=== PATIENT | male | born 1955 | race Two or more races ===

== ENCOUNTER 2022-04-17 16:52 | Inpatient (IN) | payer OTHER ==
[~2022-04-17] VITALS: Ht 170.2 cm; Wt 67.1 kg
--- NOTE | 2022-04-17 16:55 | NUR ---
Received pt 66 yrs male came by rosalind from home for ALOC LAST TIME will know 3 day ago pt asleepy with pink eyes unable to open
--- NOTE | 2022-04-17 17:00 | NUR ---
SEEN BY DR. MORALES
--- NOTE | 2022-04-17 17:10 | NUR ---
INSERTED ANGO CATHETER G 20 ON RT AC BLOOD DROW ,BLOOD CULTUR X 2 AND LACTETE SENT TO LAB
[2022-04-17 17:40] LABS: BASOPHILS % (AUTO) 0.3 % (0.0-2.0); HEMATOCRIT 32 % (39-51); HEMOGLOBIN 10.1 g/dL (13.5-17.5); LYMPHOCYTES # (AUTO) 0.5 K/uL (0.8-4.8); MEAN CORPUSCULAR HGB CONC 32 g/dl (31.0-36.0); MEAN CORPUSCULAR VOLUME 102 fL (80-96); MONOCYTES # (AUTO) 0.7 K/uL (0.1-1.30); MONOCYTES % (AUTO) 6.9 % (2.0-12.0); NEUTROPHILS # (AUTO) 8.7 K/uL (1.8-8.9); NEUTROPHILS % (AUTO) 87.8 % (43.0-81.0); PLATELET COUNT (AUTO) 146 K/uL (150-450); RED BLOOD CELL COUNT(AUTO) 3.16 MIL/uL (4.5-6.0); WHITE BLOOD COUNT (AUTO) 9.9 K/uL (4.3-11.0)
--- NOTE | 2022-04-17 17:41 | NUR ---
TO CT SCAN OF HEAD
--- NOTE | 2022-04-17 17:50 | NUR ---
MOVE SHEET SUBMITTED.
[2022-04-17 17:59] LABS: CALCIUM, SERUM 9.6 mg/dL (8.5-10.1); CARBON DIOXIDE 18 mmol/L (21-32); CHLORIDE 93 mmol/L (98-107); GLUCOSE 127 mg/dL (74-106); SODIUM SERUM 136 mmol/L (136-145)
[2022-04-17 18:00] LABS: POTASSIUM 6.5 mmol/L (3.5-5.1); UREA NITROGEN, BLOOD 124 mg/dL (7-18)
--- NOTE | 2022-04-17 18:00 | NUR ---
DR. CARBALLO AWARE ABOUT BP 200/126 MMHG
[2022-04-17 18:01] LABS: CREATININE 14.8 mg/dL (0.6-1.3)
[2022-04-17 18:08] LABS: ALANINE AMINOTRANSFERASE 3214 U/L (12-78); ALBUMIN 4.1 g/dL (3.4-5.0); ALKALINE PHOSPHATASE 73 U/L (46-116); ASPARTATE AMINOTRANSFERASE 1252 U/L (15-37); BILIRUBIN,DIRECT 1.9 mg/dL (0.0-0.2); BILIRUBIN,TOTAL 4.8 mg/dL (0.2-1.0); TOTAL PROTEIN, SERUM 7.8 g/dL (6.4-8.2)
[2022-04-17] MEDS ORDERED: hydrALAZINE HCL IV 20 MG VIAL IV ONE (18:30)
[2022-04-17] MEDS ORDERED: INSULIN REGULAR, HUMAN 100 UNIT/ML 10 ML VIAL IV ONE (18:30)
[2022-04-17] MEDS ORDERED: SODIUM POLYSTYRENE SULFONATE 15 G/60 ML BOTTLE PO ONE (18:30)
[2022-04-17] MEDS ORDERED: DEXTROSE 50%-WATER 50 ML DISP.SYRIN IV ONE (18:30)
[2022-04-17] MEDS ORDERED: ALBUTEROL FS 2.5 MG/3 ML VIAL.NEB NEB ONE (18:30)
[2022-04-17] MEDS ORDERED: SODIUM BICARBONATE SYR 50 MEQ/50 ML DISP.SYRIN IV ONE (18:30)
[2022-04-17] MEDS ORDERED: SODIUM POLYSTYRENE SULFONATE 15 G/60 ML BOTTLE ONE (18:34)
[2022-04-17] MEDS ORDERED: hydrALAZINE HCL IV 20 MG VIAL ONE (18:34)
[2022-04-17] MEDS ORDERED: DEXTROSE 50%-WATER 50 ML DISP.SYRIN ONE (18:35)
[2022-04-17] MEDS ORDERED: INSULIN REGULAR, HUMAN 100 UNIT/ML 10 ML VIAL ONE (18:35)
[2022-04-17] MEDS ORDERED: SODIUM BICARBONATE SYR 50 MEQ/50 ML DISP.SYRIN ONE (18:35)
--- NOTE | 2022-04-17 18:38 | NUR ---
K. 6.8 TRETMENT GIVEN ORDER IN COPE PT ON HD A-V EUFMEIA ON LT UPPER ARM WITH GOOD BRITE
[2022-04-17] MEDS ORDERED: ALBUTEROL FS 2.5 MG/3 ML VIAL.NEB ONE (18:57)
[2022-04-17] MEDS ORDERED: IV NS 0.9% 500 ML BAG IV ONE (19:00)
[2022-04-17] MEDS ORDERED: AZITHROMYCIN 500 MG in IV D5W 250 ML IV ONE (19:00)
[2022-04-17] MEDS ORDERED: CEFTRIAXONE 1GM BAG (ER ONLY) 50 ML IV ONE ×2 (19:00→19:22)
[2022-04-17] MEDS ORDERED: AZITHROMYCIN 500 MG VIAL ONE (19:33)
--- NOTE | 2022-04-17 19:38 | NUR ---
HAND OFF POOL MEADE
[2022-04-17] MEDS ORDERED: HALOPERIDOL LACTATE INJ 5 MG/ML VIAL IM ONE (20:30)
[2022-04-17] MEDS ORDERED: LORAZEPAM INJ 2 MG/ML VIAL IVP ONE (20:30)
[2022-04-17] MEDS ORDERED: HALOPERIDOL LACTATE INJ 5 MG/ML VIAL ONE (20:32)
[2022-04-17] MEDS ORDERED: LORAZEPAM INJ 2 MG/ML VIAL ONE (20:40)
--- NOTE | 2022-04-17 22:01 | NUR ---
CLINICALS GIVEN TO FLORA OVER THE PHONE AT [phone]
[2022-04-17] MEDS ORDERED: ASPIRIN 325 MG TABLET PO ONE (22:30)
[2022-04-18] VITALS (41 sets, daily range): BP systolic 117–202; BP diastolic 24–138
--- NOTE | 2022-04-18 04:14 | NUR ---
ROOM [address] [place] [address] NURSE CONSTANZA REPORT [phone] Addendum: 04/18/22 at 0454 by [place] [employer] AGENT IS WORKING ON ALS TRANSPORTATION
[2022-04-18] MEDS ORDERED: ASPIRIN 325 MG TABLET ONE (04:15)
--- NOTE | 2022-04-18 04:19 | NUR ---
patient unable to follow instructions, failed swallow trials.
[2022-04-18 06:43] LABS: BASOPHILS % (AUTO) 0.2 % (0.0-2.0); CALCIUM, SERUM 9.3 mg/dL (8.5-10.1); HEMATOCRIT 29 % (39-51); HEMOGLOBIN 9.5 g/dL (13.5-17.5); LYMPHOCYTES # (AUTO) 0.6 K/uL (0.8-4.8); LYMPHOCYTES % (AUTO) 5.6 % (20.0-44.0); MEAN CORPUSCULAR HGB CONC 33 g/dl (31.0-36.0); MEAN CORPUSCULAR VOLUME 102 fL (80-96); MONOCYTES # (AUTO) 1.1 K/uL (0.1-1.30); MONOCYTES % (AUTO) 9.8 % (2.0-12.0); NEUTROPHILS # (AUTO) 9.7 K/uL (1.8-8.9); NEUTROPHILS % (AUTO) 84.4 % (43.0-81.0); PLATELET COUNT (AUTO) 139 K/uL (150-450); RED BLOOD CELL COUNT(AUTO) 2.89 MIL/uL (4.5-6.0); WHITE BLOOD COUNT (AUTO) 11.5 K/uL (4.3-11.0)
--- NOTE | 2022-04-18 06:50 | NUR ---
POTASSIUM 6.5 , MD AWARE
[2022-04-18 07:00] LABS: ALBUMIN 3.8 g/dL (3.4-5.0); BILIRUBIN,DIRECT 1.4 mg/dL (0.0-0.2); BILIRUBIN,TOTAL 3.3 mg/dL (0.2-1.0); POTASSIUM 6.5 mmol/L (3.5-5.1); TOTAL PROTEIN, SERUM 7.3 g/dL (6.4-8.2)
[2022-04-18] MEDS ORDERED: OLANZAPINE 10 MG VIAL IM ONE ×2 (07:00→07:03)
[2022-04-18 07:01] LABS: CREATININE 16.5 mg/dL (0.6-1.3)
[2022-04-18] MEDS ORDERED: SODIUM BICARBONATE SYR 50 MEQ/50 ML DISP.SYRIN ONE (07:26)
[2022-04-18] MEDS ORDERED: CALCIUM CHLORIDE 1,000 MG/10 ML DISP.SYRIN ONE (07:26)
[2022-04-18 07:27] LABS: ABG BASE EXCESS -12.3 mmol/L; ABG PCO2 23.3 mmHg (35.0-45.0); ABG PO2 83.1 mmHg (75.0-100.0); COHb 0.9 % (0.5-1.5); MetHb 0.2 % (0.0-1.5); SITE, ABG Right Radial; VENT MODE, BG ROOM AIR
[2022-04-18] MEDS ORDERED: DEXTROSE 50%-WATER 50 ML DISP.SYRIN ONE (07:27)
[2022-04-18] MEDS ORDERED: ALBUTEROL FS 2.5 MG/3 ML VIAL.NEB NEB ONE ×2 (07:30→08:00)
[2022-04-18] MEDS ORDERED: DEXTROSE 50%-WATER 50 ML DISP.SYRIN IV ONE ×2 (07:30→08:00)
[2022-04-18] MEDS ORDERED: SODIUM BICARBONATE SYR 50 MEQ/50 ML DISP.SYRIN IV ONE ×2 (07:30→08:00)
[2022-04-18] MEDS ORDERED: INSULIN REGULAR, HUMAN 100 UNIT/ML 10 ML VIAL IV ONE ×2 (07:30→08:00)
[2022-04-18] MEDS ORDERED: CALCIUM CHLORIDE 1,000 MG/10 ML DISP.SYRIN IV ONE ×2 (07:30→08:00)
[2022-04-18] MEDS ORDERED: PIPERACILLIN /TAZOBACTAM 3.375 G in IV D5W 50 ML IV ONE (07:30)
--- NOTE | 2022-04-18 07:44 | NUR ---
BLOOD GLUCOSE 154. REGULAR INSULIN 10U GIVEN IV RAC#20 PER PROTOCOL FOR HYPERKALEMIA.
--- NOTE | 2022-04-18 07:47 | NUR ---
MAY CM CALLED TO ASK FOR POTASSIUM LEVEL, WILL CALL [facility] SHORTLY AFTER TALKING TO THEIR DOCTOR TO DECIDE IF PATIENT WILL BE TRANSFERRED
--- NOTE | 2022-04-18 07:54 | NUR ---
PT TAKEN TO RADIOLOGY
[2022-04-18] MEDS ORDERED: SODIUM POLYSTYRENE SULFONATE 15 G/60 ML BOTTLE GT ONE (08:00)
[2022-04-18] MEDS ORDERED: *INSULIN REGULAR(HUMULIN R)HUM 100 UNIT/ML VIAL SQ PRN (08:00)
[2022-04-18] MEDS ORDERED: SODIUM POLYSTYRENE SULF. PWD 15 GM UDC PO ONE (08:00)
[2022-04-18] MEDS ORDERED: DEXTROSE 50%-WATER 50 ML DISP.SYRIN IV PRN (08:00)
[2022-04-18] MEDS ORDERED: INSULIN REGULAR, HUMAN 100 UNIT/ML 3 ML VIAL SQ PRN (08:00)
[2022-04-18] MEDS ORDERED: CLONIDINE HCL 0.1 MG TABLET PO PRN (08:00)
--- NOTE | 2022-04-18 08:05 | NUR ---
PT RETURNED FROM RADIOLOGY
[2022-04-18] MEDS ORDERED: ALBUTEROL FS 2.5 MG/3 ML VIAL.NEB ONE (08:15)
--- NOTE | 2022-04-18 08:40 | NUR ---
PT SEEN BY DR CHRISTENSEN
[2022-04-18] MEDS ORDERED: FOLI0.8T23 PO (08:41)
[2022-04-18] MEDS ORDERED: ATOR40TA PO (08:41)
[2022-04-18] MEDS ORDERED: GABA300C PO (08:41)
[2022-04-18] MEDS ORDERED: SEVE800T28 PO (08:41)
[2022-04-18] MEDS ORDERED: NIFE90TA38 PO (08:41)
[2022-04-18] MEDS ORDERED: TAMS-12 PO (08:41)
[2022-04-18] MEDS ORDERED: OMEP20CA15 PO (08:41)
[2022-04-18] MEDS ORDERED: APIX2.5T PO (08:41)
[2022-04-18] MEDS ORDERED: DULO30CA52 PO (08:41)
--- NOTE | 2022-04-18 08:47 | NUR ---
REPORT GIVEN TO WAQAS MEADE FOR ERICKA
[2022-04-18] MEDS ORDERED: LABETALOL HCL IV 100MG VIAL IV PRN (09:00)
[2022-04-18] MEDS: AMLODIPINE BESYLATE 5 MG TABLET PO SCH (09:00)
[2022-04-18] MEDS ORDERED: VANCOMYCIN 1 GM in IV D5W 250 ML IV ONE (09:30)
--- NOTE | 2022-04-18 09:30 | NUR ---
ICU/RN PT RECEIVED IN ROOM 255, ON 2L O2 NC, SOME LABORED BREATHING. SKIN INTACT. RIGHT AC 20G PIV IN PLACE, MIDLINE ORDERED. LEFT UA AV FISTULA IN PLACE, HD TO BE ORDERED STAT BY HD MD.
[2022-04-18 09:36] LABS: ABG BASE EXCESS -7.9 mmol/L; ABG OXYGEN SATURATION 96.7 % (92.0-98.5); ABG PCO2 32.8 mmHg (35.0-45.0); ABG PH 7.335 (7.350-7.450); ABG PO2 105.7 mmHg (75.0-100.0); AaDO2 55.2 mmHg; COHb 1.5 % (0.5-1.5); MetHb 0.1 % (0.0-1.5); O2Hb 95.2 % (94.0-97.0); SITE, ABG Right Radial; VENT MODE, BG 2L NC
[2022-04-18] MEDS: IV 1/2NS 1000 ML 1,000 ML IV PRN ×2 (09:42→22:55)
--- NOTE | 2022-04-18 10:00 | NUR ---
ICU/RN PT UNABLE TO TAKE ANY PO MEDS. ALL PO MEDS ORDERED HELD AT THIS TIME.
--- NOTE | 2022-04-18 10:30 | NUR ---
ICU/RN YARITZA ALFARO AT BEDSIDE. UPDATED ON PT'S CONDITION
--- NOTE | 2022-04-18 11:00 | NUR ---
ICU/RN CONSENT FOR HD GIVEN BY DAUGHTER ANGELINA MORENO. HD NURSE IN ROOM.
[2022-04-18] MEDS: BLOOD SUGAR DIAGNOSTIC 1 EACH STRIP VI SCH ×3 (12:23→21:15)
--- NOTE | 2022-04-18 13:38 | NUR ---
ICU/RN PT WITH ONGOING HD, IV ABX HELD UNTIL HD IS COMPLETED. BP ELEVATED, WILL GIVE BP MEDICATION AFTER HD IS BP REMAINS ELEVATED.
[2022-04-18] MEDS: IV NS 0.9% 250 ML IV PRN (13:52)
[2022-04-18] MEDS: LEVOFLOXACIN 250 MG /D5W 50 ML 250 MG in PREMIX 1 EA IV SCH (14:06)
--- NOTE | 2022-04-18 14:29 | NUR ---
ICU/RN HD COMPLETED, 2000ML REMOVED. BP CONTINUES TO BE ELEVATED, DR CHRISTENSEN CONTACTED. ORDERED RECEIVED FOR LABETOLOL 40MG IV Q4H PRN AND CLONIDINE PATCH 0.2MG QWK.
[2022-04-18] MEDS ORDERED: CLONIDINE HCL 0.2MG/24H PTWK 1 EA PATCH TD SCH (14:30)
[2022-04-18] MEDS: LABETALOL HCL IV 100MG VIAL IV PRN ×2 (14:44→18:51)
[2022-04-18] MEDS: PIPERACILLIN /TAZOBACTAM 2.25 G in IV D5W 50 ML IV SCH ×2 (15:16→21:15)
--- NOTE | 2022-04-18 17:54 | NUR ---
ICU/RN ACCU CHECK 144, PT NPO, CONFUSED, UNABLE TO TAKE ANY PO FOOD. INSULIN HELD.
[2022-04-18] MEDS: OLANZAPINE 10 MG VIAL IM PRN (18:32)
[2022-04-18] MEDS ORDERED: LACTULOSE UDC 200 G in SODIUM CHLORIDE IRRIG SOLUTION 400 ML IR ONE (21:00)
[2022-04-18] MEDS: LORAZEPAM INJ 2 MG/ML VIAL IV PRN (21:04)
[2022-04-19] VITALS (36 sets, daily range): BP systolic 133–174; BP diastolic 71–113
[2022-04-19] MEDS: OLANZAPINE 10 MG VIAL IM PRN ×2 (02:30→22:06)
[2022-04-19] MEDS: LORAZEPAM INJ 2 MG/ML VIAL IV PRN ×3 (03:46→20:32)
[2022-04-19] MEDS: PIPERACILLIN /TAZOBACTAM 2.25 G in IV D5W 50 ML IV SCH ×3 (04:45→20:15)
[2022-04-19 04:48] LABS: BASOPHILS % (AUTO) 0.3 % (0.0-2.0); EOSINOPHILS % (AUTO) 0.2 % (0.0-6.0); HEMATOCRIT 28 % (39-51); HEMOGLOBIN 9.1 g/dL (13.5-17.5); LYMPHOCYTES # (AUTO) 0.6 K/uL (0.8-4.8); LYMPHOCYTES % (AUTO) 5.6 % (20.0-44.0); MEAN CORPUSCULAR HGB CONC 33 g/dl (31.0-36.0); MEAN CORPUSCULAR VOLUME 102 fL (80-96); MONOCYTES # (AUTO) 0.9 K/uL (0.1-1.30); MONOCYTES % (AUTO) 8.8 % (2.0-12.0); NEUTROPHILS # (AUTO) 8.4 K/uL (1.8-8.9); NEUTROPHILS % (AUTO) 85.1 % (43.0-81.0); PLATELET COUNT (AUTO) 134 K/uL (150-450); RED BLOOD CELL COUNT(AUTO) 2.75 MIL/uL (4.5-6.0); WHITE BLOOD COUNT (AUTO) 9.9 K/uL (4.3-11.0)
[2022-04-19 04:54] LABS: CALCIUM, SERUM 8.6 mg/dL (8.5-10.1); POTASSIUM 5.1 mmol/L (3.5-5.1)
[2022-04-19 05:02] LABS: SERUM AMMONIA 42 umol/L (11-32)
[2022-04-19 05:09] LABS: BILIRUBIN,TOTAL 2.6 mg/dL (0.2-1.0); TOTAL PROTEIN, SERUM 6.1 g/dL (6.4-8.2)
[2022-04-19 05:10] LABS: CREATININE 11.1 mg/dL (0.6-1.3)
[2022-04-19 05:49] LABS: THYROID STIMULATING HORMONE 1.817 uIU/mL (0.358-3.74)
[2022-04-19] MEDS ORDERED: VANCOMYCIN 500 MG in IV D5W 100 ML IV PRN (06:00)
--- NOTE | 2022-04-19 07:30 | NUR ---
ICU/RN PT IS AGITATED ,ON THE BED ,ENCEPHALOPATHY,REACTIVE ON PAIN STIMULATION.NOT FOLLOWS COMMAND..ON 2L N/C ,SAT O2-98%.PT HAS PRODUCTIVE COUGH.BILATERAL SOFT WRIST RESTRAINS ON. RIGHT UPPER ARM MID LINE.LEFT ARM HD FISTULA.PT IS ON HD. HD NURSE AT BEDSIDE. LABS REVIEW. NOTIFIED. BS-120.CONTINUE MONITORING.
[2022-04-19] MEDS: BLOOD SUGAR DIAGNOSTIC 1 EACH STRIP VI SCH ×4 (07:45→22:23)
[2022-04-19] MEDS: AMLODIPINE BESYLATE 5 MG TABLET PO SCH (08:16)
[2022-04-19] MEDS ORDERED: LACTULOSE UDC 200 G in SODIUM CHLORIDE IRRIG SOLUTION 400 ML IR ONE (09:00)
[2022-04-19] MEDS ORDERED: CLONIDINE HCL 0.3 MG/24H PTWK 1 EA PATCH TD SCH (09:00)
--- NOTE | 2022-04-19 09:00 | NUR ---
ICU/RN PT IS VERY AGITATED. ATIVAN 1 MG IV GIVEN ORDERED. PT IS STILL HAVING HD.
--- NOTE | 2022-04-19 11:05 | NUR ---
ICU/RN HD IS OVER .1.5 L OUTPUT.REPOSITION FOR COMFORT.CONTINUE MONITORING.
[2022-04-19] MEDS: IV 1/2NS 1000 ML 1,000 ML IV PRN ×2 (11:42→22:43)
[2022-04-19] MEDS: LEVOFLOXACIN 250 MG /D5W 50 ML 250 MG in PREMIX 1 EA IV SCH (11:43)
[2022-04-19] MEDS: IV NS 0.9% 250 ML IV PRN (11:43)
[2022-04-19] MEDS ORDERED: VANCOMYCIN 1 GM in IV D5W 250ml IV ONE (18:00)
--- NOTE | 2022-04-19 18:35 | NUR ---
ICU/RN PT IS SLEEPING AT THIS TIME.DUE MEDS ARE GIVEN ORDERED. BS-123. CONTINUE MONITORING.
--- NOTE | 2022-04-19 19:23 | NUR ---
ICU/RN OPENING NOTES: RECEIVED PT IN BED, SLEEPING AT THIS MOMENT. RESPONSIVE TO PAINFUL STIMULI. ON 2L/MIN VIA N/C AND PT TOLERATED WELL. O2 SAT 97%. IV ACCESS ON DOMINICK MID LINE AND RAC#20G INTACT AND PATENT. NO S/S OF INFILTRATIONS. RUNNING 1/2 NS AT 100CC/HR. LEFT ARM HD FISTULA INTACT AND COVERED WITH DRY DRESSING. NO FACIAL GRIMACING NOTED. NO ACUTE DISTRESS.BILATERAL SOFT WRIST RESTRAINTS WITH MITTENS ON. ALL SAFETY MEASURES IN PLACE. SIDE RAILS UP X3, BED IN LOWEST POSITION AND LOCKED. PLACE CALL LIGHT WITH IN REACH. WILL CONTINUE TO MONITOR.
--- NOTE | 2022-04-19 20:35 | NUR ---
RN NOTES: NOTED PT WITH SEVERE AGITATION. ATIVAN 0.5 ML GIVEN. WILL CONTINUE TO MONITOR
--- NOTE | 2022-04-19 21:32 | NUR ---
RN NOTES: DAUGHTER IRVIN MORENO CALLED. ALL UPDATES GIVEN TO THE DAUGHTER.
--- NOTE | 2022-04-19 22:25 | NUR ---
RN NOTES: STILL NOTED PT WITH VERY AGITATED, RESTLESSNESS. ZYPREXA IM GIVEN. PT TOLERATED WELL. PT'S BLOOD SUGAR 85. NO COVERAGE NEEDED. NO S/S OF HYPER/HYPOGLYCEMIA. WILL CONTINUE TO MONITOR
[2022-04-20] VITALS (28 sets, daily range): BP systolic 131–181; BP diastolic 34–114
[2022-04-20] MEDS: LORAZEPAM INJ 2 MG/ML VIAL IV PRN ×3 (03:36→21:21)
--- NOTE | 2022-04-20 03:37 | NUR ---
RN NOTES: PT STILL NOTED WITH SEVERE AGITATION WITH RESTLESSNESS, KEPT TRYING TO GETTING UP FROM THE BED, BILATERAL SOFT RESTRAINTS ON WITH MITTENS, ATIVAN GIVEN PRN ORDERED. PT TOLERATED WELL. WILL CONTINUE TO MONITOR
[2022-04-20] MEDS: PIPERACILLIN /TAZOBACTAM 2.25 G in IV D5W 50 ML IV SCH ×3 (04:51→23:44)
[2022-04-20] MEDS: LABETALOL HCL IV 100MG VIAL IV PRN (06:10)
[2022-04-20 06:25] LABS: SERUM AMMONIA 37 umol/L (11-32)
--- NOTE | 2022-04-20 06:26 | NUR ---
ICU/RN CLOSING NOTES: PT IN BED, AWAKE, ALERT/ORIENTED X1 WITH VERY CONFUSED. ON 2L/MIN VIA N/C AND PT TOLERATED WELL. O2 SAT 98%. IV ACCESS ON DOMINICK MID LINE AND RAC#20G INTACT AND PATENT. NO S/S OF INFILTRATIONS. RUNNING 1/2 NS AT 100CC/HR. LEFT ARM HD FISTULA INTACT AND COVERED WITH DRY DRESSING. NO FACIAL GRIMACING NOTED. NO ACUTE DISTRESS. PT KEPT MOVING ON THE BED ALL NIGHT. KEPT TRYING TO REMOVED THE RESTRAINTS. STILL ON BILATERAL SOFT WRIST RESTRAINTS WITH MITTENS. RELEASED Q 2 HOURS TO CHECK CIRCULATION. LABETALOL GIVEN FOR B/P-173/99, PULSE-108. ALL DUE MEDS GIVEN ORDERED. ALL SAFETY MEASURES IN PLACE. SIDE RAILS UP X3, BED IN LOWEST POSITION AND LOCKED. PLACE CALL LIGHT WITH IN REACH. WILL ENDORSE TO MORNING SHIFT NURSE.
[2022-04-20 06:29] LABS: BASOPHILS % (AUTO) 0.2 % (0.0-2.0); EOSINOPHILS % (AUTO) 0.2 % (0.0-6.0); HEMATOCRIT 30 % (39-51); HEMOGLOBIN 9.5 g/dL (13.5-17.5); LYMPHOCYTES # (AUTO) 0.4 K/uL (0.8-4.8); MEAN CORPUSCULAR HGB CONC 32 g/dl (31.0-36.0); MEAN CORPUSCULAR VOLUME 103 fL (80-96); MONOCYTES # (AUTO) 1.2 K/uL (0.1-1.30); MONOCYTES % (AUTO) 8.9 % (2.0-12.0); NEUTROPHILS # (AUTO) 11.3 K/uL (1.8-8.9); NEUTROPHILS % (AUTO) 87.7 % (43.0-81.0); PLATELET COUNT (AUTO) 127 K/uL (150-450); RED BLOOD CELL COUNT(AUTO) 2.87 MIL/uL (4.5-6.0); WHITE BLOOD COUNT (AUTO) 12.9 K/uL (4.3-11.0)
[2022-04-20 06:36] LABS: ALANINE AMINOTRANSFERASE 1340 U/L (12-78); ALKALINE PHOSPHATASE 53 U/L (46-116); ASPARTATE AMINOTRANSFERASE 195 U/L (15-37); BILIRUBIN,TOTAL 2.2 mg/dL (0.2-1.0); CALCIUM, SERUM 8.2 mg/dL (8.5-10.1); CARBON DIOXIDE 22 mmol/L (21-32); CHLORIDE 99 mmol/L (98-107); GLUCOSE 75 mg/dL (74-106); POTASSIUM 5.1 mmol/L (3.5-5.1); SODIUM SERUM 142 mmol/L (136-145); UREA NITROGEN, BLOOD 78 mg/dL (7-18)
--- NOTE | 2022-04-20 06:40 | NUR ---
RN NOTES: PT'S LACTIC ACID-2.8. ENDORSE TO MORNING SHIFT NURSE.
--- NOTE | 2022-04-20 07:30 | NUR ---
OPENING NOTE: REPORT RECEIVED FROM OTONIEL MEADE. ORDERS AND LABS REVIEWED DURING REPORT. PER REPORT PT CONTINUES TO BE CONFUSED AND COMBATIVE, MEDS ARE NOT CALMING PATIENT. PT IS IN RESTRAINTS AND GETTING DAILY HD. PT CHECKED ON HOURLY AND PRN BY NURSING STAFF.
[2022-04-20 08:31] LABS: BILIRUBIN,DIRECT 0.9 mg/dL (0.0-0.2)
[2022-04-20] MEDS ORDERED: LACTULOSE UDC 200 G in SODIUM CHLORIDE IRRIG SOLUTION 400 ML IR ONE (09:00)
[2022-04-20] MEDS ORDERED: DEXTROSE 50%-WATER 50 ML DISP.SYRIN IV PRN (09:00)
[2022-04-20] MEDS: AMLODIPINE BESYLATE 5 MG TABLET PO SCH (09:00)
[2022-04-20] MEDS: OLANZAPINE 10 MG VIAL IM PRN ×2 (09:11→16:42)
[2022-04-20] MEDS: IV D5/0.45 NACL 1,000 ML IV PRN ×2 (09:23→23:54)
[2022-04-20] MEDS: NITROGLYCERIN 30 GM TUBE TP SCH ×2 (09:44→23:44)
[2022-04-20] MEDS: BLOOD SUGAR DIAGNOSTIC 1 EACH STRIP IN SCH ×2 (12:01→18:40)
[2022-04-20] MEDS: LEVOFLOXACIN 250 MG /D5W 50 ML 250 MG in PREMIX 1 EA IV SCH (12:01)
[2022-04-20 13:12] LABS: BAND % (MANUAL) 2 % (0.0-5.0); LYMPHOCYTES % (MANUAL) 2 % (16-48); MONOCYTES % (MANUAL) 7 % (0-11.0); NEUTROPHILS % (MANUAL) 89 (42-76)
--- NOTE | 2022-04-20 19:04 | NUR ---
END OF SHIFT NOTE: PT WAS AGITATED ALL DAY. ATIVAN AND ZYPREXA DID NOT CALM PATIENT DOWN. HD STILL PENDING FOR TODAY, TO BE DONE THIS EVENING SOMETIME PER BONDING AGENT. RECTAL TUBE INSERTED TO IRRIGATE WITH LACTULOSE TODAY, LEFT IN FOR LIQUID BMS. PT WATCHED CLOSELY TODAY.
[2022-04-20] MEDS: HEPARIN SODIUM, PORCINE 5000 UNITS/1 ML VIAL SQ SCH (23:45)
[2022-04-21] VITALS (29 sets, daily range): BP systolic 73–191; BP diastolic 18–119
[2022-04-21] MEDS: BLOOD SUGAR DIAGNOSTIC 1 EACH STRIP IN SCH ×5 (00:30→23:52)
[2022-04-21] MEDS: LABETALOL HCL IV 100MG VIAL IV PRN ×2 (01:54→05:55)
[2022-04-21 04:41] LABS: ALBUMIN 2.9 g/dL (3.4-5.0); BILIRUBIN,DIRECT 0.7 mg/dL (0.0-0.2); BILIRUBIN,TOTAL 1.7 mg/dL (0.2-1.0); TOTAL PROTEIN, SERUM 5.9 g/dL (6.4-8.2)
[2022-04-21] MEDS: LORAZEPAM INJ 2 MG/ML VIAL IV PRN (04:57)
[2022-04-21 05:02] LABS: CALCIUM, SERUM 8.4 mg/dL (8.5-10.1); POTASSIUM 4.3 mmol/L (3.5-5.1)
[2022-04-21 05:09] LABS: CREATININE 7.5 mg/dL (0.6-1.3)
[2022-04-21] MEDS: PIPERACILLIN /TAZOBACTAM 2.25 G in IV D5W 50 ML IV SCH ×3 (05:55→21:06)
--- NOTE | 2022-04-21 07:10 | NUR ---
COOK SOUP Bedside report taken from [facility] nurse Jose MEADE. pt altered, eyes closed, pt does not follow commands, pt extremely aggitated and restless, moves bue and ble 5/5, bue restraints and mittens in place. pt on 2 L n/c, tolerating well spo2 100%. pt NSR on the monitor, bue and ble pulses present and palpable. pt npo, bowel sounds present, abdomen soft to touch. pt anuric and on HD. all lines traced. vitals stable. safety measures in place. will continue to monitor.
[2022-04-21] MEDS: NITROGLYCERIN 30 GM TUBE TP SCH ×2 (08:01→21:08)
[2022-04-21] MEDS: HEPARIN SODIUM, PORCINE 5000 UNITS/1 ML VIAL SQ SCH (08:02)
[2022-04-21] MEDS: AMLODIPINE BESYLATE 5 MG TABLET PO SCH (08:07)
--- NOTE | 2022-04-21 09:19 | NUR ---
LONE LEAD LINEMAN Attempted to place ngt, unsuccessfu attempts by felice RN, jaret RN and antwon RN, once ngt inserted, tube coils in back of pt throat, pt has small amount of bleeding from rita nostrils non sustained and nonthreatening, pt on heparin sub q. charge nurse Janette MEADE aware. will notify .
[2022-04-21] MEDS ORDERED: CLONIDINE HCL 0.1 MG TABLET NG PRN (09:30)
[2022-04-21] MEDS: OLANZAPINE 10 MG VIAL IM PRN (09:58)
--- NOTE | 2022-04-21 10:01 | NUR ---
ASSISTANT ART DIRECTOR Pt extremely restless and aggitated, prn zyprexa given IM. will attempt to clean mouth and attempt to insert NGT.
--- NOTE | 2022-04-21 10:09 | NUR ---
BOTTLE SELECTOR Oral care done. NGT placed in right nostril by charge nurse Janette RN, positive placement verified by RN x2.
[2022-04-21] MEDS: PANTOPRAZOLE 40 MG VIAL IV SCH (10:14)
[2022-04-21] MEDS: LACTULOSE 10 G/15 ML UDC (PYXIS) NG SCH ×3 (10:14→21:07)
--- NOTE | 2022-04-21 10:15 | NUR ---
MANAGER STRATEGIC SOURCING SCD placed on pt ble
[2022-04-21] MEDS: NIFEdipine (10MG) 10 MG CAPSULE PO SCH ×3 (10:16→21:08)
--- NOTE | 2022-04-21 10:31 | NUR ---
SENIOR TECHNICAL SUPPORT ENGINEER Dr Snowden messaged and made aware that ngt in place, positive placement verified. prn zyprexa given IM, pt still aggitated. md made aware prn ativan given on noc shift doesnt help with pt aggitation and restlessness, order for head CT noted, pt will not stay still for study, new prn medication requested for aggitation from md. md also made aware that pt daughter Desire [phone] would like updates and has questions regarding father condition and plan of care contact information given to md. awaiting response. charge nurse Janette MEADE aware.
[2022-04-21] MEDS: LEVOFLOXACIN 250 MG /D5W 50 ML 250 MG in PREMIX 1 EA IV SCH (11:15)
[2022-04-21] MEDS: INSULIN REGULAR, HUMAN 100 UNIT/ML 3 ML VIAL SQ PRN ×2 (11:27→23:54)
--- NOTE | 2022-04-21 11:32 | NUR ---
WELD ENGINEER Ativan order changed increased to 2 mg iv q4hr per dr Snowden order, verified and entered with charge nurse Janette MEADE.
[2022-04-21] MEDS ORDERED: LORAZEPAM INJ 2 MG/ML VIAL IV PRN (12:00)
--- NOTE | 2022-04-21 12:10 | NUR ---
CHIEF COMPRESSOR STATION ENGINEER mri technologist at bedside assessing pt condition and behavior for CT scan pending, at this time pt too restless and aggitated and will not stay still for study. ativan to be given to see if pt will be lest restless and able to successfully complete head CT.
--- NOTE | 2022-04-21 12:17 | NUR ---
MANAGER MAIL pt extremely restless and aggitated, prn ativan given to calm pt and evaluate to transport to CT for CT head. vitals stable. will continue to monitor. pt dose and vitals reviewed with charge nurse Janette MEADE
[2022-04-21] MEDS: IV D5/0.45 NACL 1,000 ML IV PRN (15:19)
--- NOTE | 2022-04-21 15:45 | NUR ---
COOLER ROOM WORKER tube feeding started per md order. positive placement verified. will continue to monitor.
[2022-04-21] MEDS: APIXABAN 2.5 MG TABLET PO SCH (16:02)
[2022-04-21] MEDS: DULOXETINE HCL 30 MG CAPSULE.DR PO SCH (16:02)
--- NOTE | 2022-04-21 16:16 | NUR ---
MILL REPRESENTATIVE HD nurse at bedside setting up to start HD. pt restless. vitals stable. safety measures in place. will continue to monitor.
--- NOTE | 2022-04-21 19:03 | NUR ---
PBX INSTALLER Bedside report given to [facility] nurse Betty MEADE. pt currently on HD, asleep, easily arousable , extremely restless and aggitated when awake. pt on 2 L n/c tolerating well. all lines traced. all drips verified. safety meaures in place. pt clean and dry. no signs of acute distress at this time. head CT endorsed to [facility] nurse.
--- NOTE | 2022-04-21 19:30 | NUR ---
RN NOTE HD DONE; 2L OUTPUT. PT TOLERATED WELL. WILL CONT TO MONITOR.
--- NOTE | 2022-04-21 19:36 | NUR ---
ICU/RN OPENING NOTES: RECEIVED PT IN BED, AWAKE WITH PERIODS OF AGITATION, ON 2L/MIN VIA N/C AND PT TOLERATED WELL. O2 SAT 97%. IV ACCESS ON RFA #18G INTACT AND PATENT. NO S/S OF INFILTRATIONS. RUNNING D5 1/2 NS AT 75 CC/HR. WITH HD FISTULA INTACT AND COVERED WITH DRY DRESSING, ONGOING DIALYSIS AT BEDSIDE. NO ACUTE DISTRESS NOTED. WITH BILATERAL SOFT WRIST RESTRAINTS ON. ALL SAFETY MEASURES IN PLACE. SIDE RAILS UP X3, BED IN LOWEST POSITION AND LOCKED. PLACE CALL LIGHT WITH IN REACH. WILL CONTINUE TO MONITOR.
--- NOTE | 2022-04-21 20:35 | NUR ---
RN NOTES DAUGHTER IRVIN MORENO CALLED. ALL UPDATES GIVEN IN REGARDS TO PATIENT CONDITION.
[2022-04-21] MEDS ORDERED: GABAPENTIN 300 MG CAPSULE PO SCH (22:00)
[2022-04-22] VITALS (41 sets, daily range): BP systolic 89–158; BP diastolic 42–84
--- NOTE | 2022-04-22 | NUR ---
RN NOTE BS CHECKED AT 173 MD/DL, 4 UNITS OF INSULIN GIVEN PER SLIDING SCALE. WILL CONT TO MONITOR.
[2022-04-22] MEDS: LACTULOSE 10 G/15 ML UDC (PYXIS) NG SCH ×4 (02:35→21:12)
[2022-04-22 03:55] LABS: BASOPHILS # (AUTO) 0.1 K/uL (0.0-0.2); BASOPHILS % (AUTO) 0.5 % (0.0-2.0); EOSINOPHILS % (AUTO) 4.9 % (0.0-6.0); HEMATOCRIT 27 % (39-51); HEMOGLOBIN 8.5 g/dL (13.5-17.5); LYMPHOCYTES # (AUTO) 0.8 K/uL (0.8-4.8); MEAN CORPUSCULAR HGB CONC 32 g/dl (31.0-36.0); MEAN CORPUSCULAR VOLUME 103 fL (80-96); MONOCYTES % (AUTO) 9.7 % (2.0-12.0); NEUTROPHILS # (AUTO) 8.1 K/uL (1.8-8.9); NEUTROPHILS % (AUTO) 76.9 % (43.0-81.0); PLATELET COUNT (AUTO) 87 K/uL (150-450); RED BLOOD CELL COUNT(AUTO) 2.57 MIL/uL (4.5-6.0); WHITE BLOOD COUNT (AUTO) 10.5 K/uL (4.3-11.0)
[2022-04-22 04:11] LABS: ALBUMIN 2.5 g/dL (3.4-5.0); BILIRUBIN,TOTAL 1.2 mg/dL (0.2-1.0); CALCIUM, SERUM 7.7 mg/dL (8.5-10.1); CREATININE 6.4 mg/dL (0.6-1.3); POTASSIUM 3.3 mmol/L (3.5-5.1); TOTAL PROTEIN, SERUM 5.4 g/dL (6.4-8.2)
[2022-04-22 04:35] LABS: BAND % (MANUAL) 2 % (0.0-5.0); BASOPHILS % (MANUAL) 0 % (0.0-2.0); EOSINOPHILS % (MANUAL) 2 % (0-4); LYMPHOCYTES % (MANUAL) 7 % (16-48); MONOCYTES % (MANUAL) 9 % (0-11.0); NEUTROPHILS % (MANUAL) 80 (42-76)
[2022-04-22] MEDS: PIPERACILLIN /TAZOBACTAM 2.25 G in IV D5W 50 ML IV SCH (05:00)
[2022-04-22] MEDS: BLOOD SUGAR DIAGNOSTIC 1 EACH STRIP IN SCH ×4 (05:02→23:10)
[2022-04-22] MEDS: NIFEdipine (10MG) 10 MG CAPSULE PO SCH ×3 (05:02→20:54)
[2022-04-22] MEDS: IV D5/0.45 NACL 1,000 ML IV PRN (05:35)
[2022-04-22] MEDS: INSULIN REGULAR, HUMAN 100 UNIT/ML 3 ML VIAL SQ PRN ×2 (05:37→12:09)
--- NOTE | 2022-04-22 06:00 | NUR ---
RN NOTE BS CHECKED AT 149 MD/DL, 2 UNITS OF INSULIN GIVEN PER SLIDING SCALE. WILL CONT TO MONITOR.
--- NOTE | 2022-04-22 07:00 | NUR ---
RN NOTES RECEIVED PT ON BED, LETHARGIC , RESPONDS TO VERBAL STIMULI , ON 2L O2 N/C , O2 SAT WNL, ON TELE SB HR IN 50'S , TF AT 20CC/HR RUNNING VIA NGT, NO RESIDUAL NOTED, IV F AT 75CC/HR RUNNING , IV SITE CDI, SR UP x3, CALL LIGHT WITHIN EASY REACH , BED LOCKED AND IN LOWEST POSITION, CONTINUE TO MONITOR .
--- NOTE | 2022-04-22 07:08 | NUR ---
ICU/RN CLOSING NOTES: PT IN BED, OBTUNDED, ON 2L/MIN VIA N/C AND PT TOLERATED WELL. O2 SAT 97%. IV ACCESS ON RFA #18G INTACT AND PATENT. NO S/S OF INFILTRATIONS. RUNNING D5 1/2 NS AT 75 CC/HR. WITH HD FISTULA AT LEFT UA INTACT AND COVERED WITH DRY DRESSING, NO ACUTE DISTRESS NOTED. WITH BILATERAL SOFT WRIST RESTRAINTS WITH MITTENS ON. ALL SAFETY MEASURES IN PLACE. ALL DUE MEDS GIVEN, SIDE RAILS UP X3, BED IN LOWEST POSITION AND LOCKED. PLACE CALL LIGHT WITH IN REACH. WILL ENDORSE TO AM SHIFT SANJAY MEADE FOR CONTINUITY OF CARE.
[2022-04-22 08:13] LABS: ABG BASE EXCESS -1.8 mmol/L; ABG OXYGEN SATURATION 95.7 % (92.0-98.5); ABG PCO2 38.8 mmHg (35.0-45.0); ABG PH 7.389 (7.350-7.450); AaDO2 97.8 mmHg; MetHb 0.1 % (0.0-1.5); O2Hb 94.6 % (94.0-97.0); SITE, ABG Right Brachial; VENT MODE, BG 3L NC
[2022-04-22] MEDS: DULOXETINE HCL 30 MG CAPSULE.DR PO SCH ×2 (08:18→16:42)
[2022-04-22] MEDS: TAMSULOSIN 0.4 MG CAP.SR.24H PO SCH (08:18)
[2022-04-22] MEDS: APIXABAN 2.5 MG TABLET PO SCH (08:20)
[2022-04-22] MEDS: NITROGLYCERIN 30 GM TUBE TP SCH ×2 (08:24→20:55)
[2022-04-22] MEDS: PANTOPRAZOLE 40 MG VIAL IV SCH (08:35)
[2022-04-22] MEDS: METRONIDAZOLE 500MG/ NS 100ML 500 MG in PREMIX 1 EA IV SCH ×3 (09:19→20:54)
[2022-04-22] MEDS: LEVOFLOXACIN 250 MG /D5W 50 ML 250 MG in PREMIX 1 EA IV SCH (12:11)
[2022-04-22] MEDS: NEPRO 1,000 ML BOTTLE NG PRN ×2 (16:32→18:03)
--- NOTE | 2022-04-22 18:20 | NUR ---
RN NOTES PT FREDERIC , WAKES UP TO VERBAL STIMULI, RECEIVED HD ON THIS SHIFT, TOLERATING WELL , ON 2L O2 N/C , O2 SAT WNL, , IVF AT 40 CC/HR RUNNING , IV SITE CDI, NO SIGNFICANT CHANGES NOTED ON THIS SHIFT , WILL ENDORSE TO PLANNING ASSISTANT NURSE FOR CONTINUITY OF CARE .
--- NOTE | 2022-04-22 19:56 | NUR ---
field horticultural specialty grower. initial assessment. received the pt rest in bed. awake, alert, very agitated. hob elevated. ngt feeding started, now stopped for prevent aspiration. pt will calm resume the feeding, iv RT hand 20g. LT hand HD cath. rita soft wrist restraint checked and released. no INJURY or redness noted. will continue to monitor vitals.
[2022-04-22] MEDS: OLANZAPINE 10 MG VIAL IM PRN (22:28)
--- NOTE | 2022-04-22 22:49 | NUR ---
agricultural extension specialist. pt is agitation zyprexa 5mg IM given per ordered
[2022-04-23] VITALS (33 sets, daily range): BP systolic 98–165; BP diastolic 55–102
[2022-04-23] MEDS: LACTULOSE 10 G/15 ML UDC (PYXIS) NG SCH (03:56)
[2022-04-23 03:59] LABS: BASOPHILS # (AUTO) 0.1 K/uL (0.0-0.2); BASOPHILS % (AUTO) 0.5 % (0.0-2.0); HEMATOCRIT 29 % (39-51); HEMOGLOBIN 9.3 g/dL (13.5-17.5); LYMPHOCYTES # (AUTO) 0.7 K/uL (0.8-4.8); LYMPHOCYTES % (AUTO) 5.4 % (20.0-44.0); MEAN CORPUSCULAR HGB CONC 32 g/dl (31.0-36.0); MEAN CORPUSCULAR VOLUME 103 fL (80-96); MONOCYTES # (AUTO) 0.8 K/uL (0.1-1.30); MONOCYTES % (AUTO) 6.5 % (2.0-12.0); NEUTROPHILS # (AUTO) 10.7 K/uL (1.8-8.9); NEUTROPHILS % (AUTO) 84.6 % (43.0-81.0); PLATELET COUNT (AUTO) 72 K/uL (150-450); RED BLOOD CELL COUNT(AUTO) 2.77 MIL/uL (4.5-6.0); WHITE BLOOD COUNT (AUTO) 12.6 K/uL (4.3-11.0)
[2022-04-23 04:07] LABS: CALCIUM, SERUM 7.8 mg/dL (8.5-10.1); CREATININE 5.9 mg/dL (0.6-1.3); POTASSIUM 3.6 mmol/L (3.5-5.1)
[2022-04-23 04:42] LABS: BAND % (MANUAL) 5 % (0.0-5.0); BASOPHILS % (MANUAL) 0 % (0.0-2.0); EOSINOPHILS % (MANUAL) 1 % (0-4); LYMPHOCYTES % (MANUAL) 9 % (16-48); MONOCYTES % (MANUAL) 6 % (0-11.0); NEUTROPHILS % (MANUAL) 79 (42-76)
[2022-04-23] MEDS: NIFEdipine (10MG) 10 MG CAPSULE PO SCH (05:57)
[2022-04-23] MEDS: METRONIDAZOLE 500MG/ NS 100ML 500 MG in PREMIX 1 EA IV SCH ×3 (05:57→21:03)
[2022-04-23] MEDS: BLOOD SUGAR DIAGNOSTIC 1 EACH STRIP IN SCH ×4 (06:14→23:53)
[2022-04-23] MEDS: IV D5/0.45 NACL 1,000 ML IV PRN (06:24)
--- NOTE | 2022-04-23 07:10 | NUR ---
manager agriculture. am care given. remaining same oxygen tolerated well. sat 99%. no acute distress noted, telemetry monitor showing nsr. iv rt hand 20g. ivf d5 1/2ns running, flexi seal intact. ngt feeding tolerated well. rita soft wrist restraint checked and released, no injury or redness noted.
--- NOTE | 2022-04-23 08:00 | NUR ---
ICU/RN PT IS AWAKE,ALERT .ORIENTED-2.FOLLOWS COMMAND,COOPERATIVE.ON 2L N/C SAT O2-100%.V/S STABLE ,AFEBRILE.NO PAIN REPORTED AT THIS TIME.IV INFUSING ORDERED.LEFT ARM IV FISTULA.PT IS ANURIC ON HD.RECTAL TUBE DRAINING WITH LIQUID STOOL.LABS REVIEW. AWARE.
[2022-04-23] MEDS: TAMSULOSIN 0.4 MG CAP.SR.24H PO SCH (08:07)
[2022-04-23] MEDS: DULOXETINE HCL 30 MG CAPSULE.DR PO SCH ×2 (08:07→16:48)
[2022-04-23] MEDS: PANTOPRAZOLE 40 MG/PACK PACK NG SCH (08:07)
[2022-04-23] MEDS: NITROGLYCERIN 30 GM TUBE TP SCH ×2 (09:00→21:03)
[2022-04-23] MEDS: NIFEdipine XL (30MG) 30 MG TAB PO SCH ×2 (09:00→16:48)
--- NOTE | 2022-04-23 09:00 | NUR ---
ICU/RN DUE MEDS ARE GIVEN ORDERED.DR CHRISTENSEN SEEN THE PT.OK TO REMOVED RESTRAINS.NG TUBE REMOVED.ICE CHEEPS AND WATER PROVIDED. OK TO TRANSFER TO MED SURGE UNIT.
--- NOTE | 2022-04-23 09:18 | NUR ---
ICU/RN HD NURSE AT BED SIDE.PT IS HAVING HD.
[2022-04-23] MEDS ORDERED: ALBUMIN 25% 25 GM in PREMIX 1 EA IV PRN (10:00)
[2022-04-23] MEDS: LEVOFLOXACIN 250 MG /D5W 50 ML 250 MG in PREMIX 1 EA IV SCH (11:49)
--- NOTE | 2022-04-23 13:00 | NUR ---
ICU/RN RECTAL TUBE REMOVED ORDERED.
[2022-04-23] MEDS: IV NS 0.9% 250 ML IV PRN (14:44)
--- NOTE | 2022-04-23 17:30 | NUR ---
ICU/RN PM CARE PROVIDED.DUE MEDS ARE GIVEN ORDERED.PT IS AMBULATING IN THE ROOM. FAMILY AT BED SIDE.OK TRANSFER PT TO MED SURGE UNIT.WAITING FOR THE BED.
--- NOTE | 2022-04-23 20:00 | NUR ---
Received patient on bed resting appears comfortable.AA/OX4.VSS.SR.Respiration even and unlabored on RA saturation 93%-96%.Dx: Metabolic Encephalopathy,PNA,Liver Failure ,ESRD on HD. Left AVF with dressing in place positive bruit and thrill.Denies pain or any discomfort. Safety measures implemented.Call light at bedside and encouraged to call for assistance.
[2022-04-24] VITALS (13 sets, daily range): BP systolic 114–159; BP diastolic 53–92
[2022-04-24] MEDS ORDERED: ZOLPIDEM TARTRATE 5 MG TABLET PO PRN
[2022-04-24 04:52] LABS: BASOPHILS % (AUTO) 0.5 % (0.0-2.0); EOSINOPHILS % (AUTO) 4.3 % (0.0-6.0); HEMATOCRIT 30 % (39-51); HEMOGLOBIN 9.7 g/dL (13.5-17.5); MEAN CORPUSCULAR HGB CONC 33 g/dl (31.0-36.0); MEAN CORPUSCULAR VOLUME 103 fL (80-96); MONOCYTES % (AUTO) 10.2 % (2.0-12.0); NEUTROPHILS # (AUTO) 6.9 K/uL (1.8-8.9); PLATELET COUNT (AUTO) 66 K/uL (150-450); RED BLOOD CELL COUNT(AUTO) 2.87 MIL/uL (4.5-6.0); WHITE BLOOD COUNT (AUTO) 9.3 K/uL (4.3-11.0)
--- NOTE | 2022-04-24 05:00 | NUR ---
Was medicated for sleeping pill as requested.Effective.No significant change noted during the shift.Due medications given.VSS.SR. safety precaution maintained.Call light at bedside.
[2022-04-24 05:15] LABS: ALBUMIN 2.9 g/dL (3.4-5.0); BILIRUBIN,TOTAL 1.2 mg/dL (0.2-1.0); CALCIUM, SERUM 8.3 mg/dL (8.5-10.1); CREATININE 5.8 mg/dL (0.6-1.3); POTASSIUM 3.4 mmol/L (3.5-5.1); TOTAL PROTEIN, SERUM 5.8 g/dL (6.4-8.2)
[2022-04-24] MEDS: METRONIDAZOLE 500MG/ NS 100ML 500 MG in PREMIX 1 EA IV SCH (05:22)
[2022-04-24] MEDS: BLOOD SUGAR DIAGNOSTIC 1 EACH STRIP IN SCH ×3 (05:28→17:01)
[2022-04-24 05:46] LABS: BAND % (MANUAL) 3 % (0.0-5.0); BASOPHILS % (MANUAL) 0 % (0.0-2.0); EOSINOPHILS % (MANUAL) 6 % (0-4); LYMPHOCYTES % (MANUAL) 8 % (16-48); MONOCYTES % (MANUAL) 12 % (0-11.0); NEUTROPHILS % (MANUAL) 71 (42-76)
[2022-04-24] MEDS: NITROGLYCERIN 30 GM TUBE TP SCH (08:11)
[2022-04-24] MEDS: PANTOPRAZOLE 40 MG/PACK PACK NG SCH (08:11)
[2022-04-24] MEDS: DULOXETINE HCL 30 MG CAPSULE.DR PO SCH ×2 (08:11→16:58)
[2022-04-24] MEDS: NIFEdipine XL (30MG) 30 MG TAB PO SCH ×2 (08:11→16:58)
[2022-04-24] MEDS: TAMSULOSIN 0.4 MG CAP.SR.24H PO SCH (08:11)
[2022-04-24] MEDS ORDERED: APIXABAN 2.5 MG TABLET PO SCH (09:00)
--- NOTE | 2022-04-24 09:50 | NUR ---
ICU/RN PT TRANSFERRED TO ROOM 326-1. REPORT GIVEN TO GUEVARA MEADE. PT ON RA STABLE THROUGHOUT TRANSFER AND ON ARRIVAL TO THE UNIT. DAUGHTER LEI NOTIFIED OF TRANSFER.
--- NOTE | 2022-04-24 10:00 | NUR ---
MS RN NOTES RECEIVED PATIENT VIA WHEELCHAIR. PATIENT A/O X 4, ABLE TO MAKE NEEDS KNOWN, TOLERATING WELL ON ROOM AIR WITH NO S/S RESPIRATORY DISTRESS. R HAND # 20 G SL CLEAN, INTACT, AND FLUSHING WELL. NOAH FISTULA WITH THRILL AND BRUIT NOTED. NO COMPLAINTS OF PAIN OR DISCOMFORT AT THIS TIME. SAFETY MEASURES IN PLACE: BED IN LOWEST LOCKED POSITION, SIDE RAILS UP X 2, CALL LIGHT WITHIN REACH. WILL CONTINUE TO MONITOR.
[2022-04-24] MEDS ORDERED: LEVOFLOXACIN (250MG) 250 MG TABLET PO SCH (12:00)
[2022-04-24] MEDS ORDERED: METRONIDAZOLE 500 MG TABLET PO SCH (13:00)
[2022-04-24] MEDS: INSULIN REGULAR, HUMAN 100 UNIT/ML 3 ML VIAL SQ PRN (13:54)
[2022-04-24] MEDS ORDERED: NIFE-35 PO (14:02)
--- NOTE | 2022-04-24 17:00 | NUR ---
MS RN NOTES PATIENT MADE AWARE OF MD DISCHARGE ORDERS AND INSTRUCTIONS. PATIENT VERBALIZED UNDERSTANDING AND SIGNED MD DISCHARGE INSTRUCTIONS SHEET. PATIENT VERBALIZED POSSESSION OF ALL BELONGINGS AND SIGNED BELONGINGS LIST. IV LINE AND ID BAND REMOVED. PATIENT DISCHARGED FROM UNIT IN WHEELCHAIR ACCOMPANIED BY DAUGHTER. PATIENT STABLE AT TIME OF DISCHARGE.
== END 2022-04-24 17:00 | disposition home or self-care (01) | DRG 177 ==
LOC: ER 17:52 → ICU 04-18 08:50 → MED 04-24 09:55
PROVIDERS: ADMIT Internal Medicine; ATTEND Internal Medicine
PROC: 5A1D70Z Performance of Urinary Filtration, Intermittent, Less than 6 Hours Per Day (ICD-10-PCS; principal; 2022-04-18)
DX: J69.0 Pneumonitis due to inhalation of food and vomit (principal); G93.41 Metabolic encephalopathy; N18.6 End stage renal disease; K72.00 Acute and subacute hepatic failure without coma; I13.2 Hypertensive heart and chronic kidney disease with heart failure and with stage 5 chronic kidney disease, or end stage renal disease; I50.22 Chronic systolic (congestive) heart failure; E87.20 Acidosis, unspecified; E72.20 Disorder of urea cycle metabolism, unspecified; E11.22 Type 2 diabetes mellitus with diabetic chronic kidney disease; Z99.2 Dependence on renal dialysis; E87.5 Hyperkalemia; K76.82 Hepatic encephalopathy; D63.1 Anemia in chronic kidney disease; E83.89 Other disorders of mineral metabolism; E86.0 Dehydration; E78.5 Hyperlipidemia, unspecified; R77.8 Other specified abnormalities of plasma proteins; D69.6 Thrombocytopenia, unspecified; Z95.2 Presence of prosthetic heart valve; Z20.822 Contact with and (suspected) exposure to COVID-19
CPT/HCPCS: 36410; 36415; 36600; 70450-TC; 71045-TC; 71250-TC; 80048-TC; 80053-TC; 80061-TC; 80076-TC; 80202-TC; 82140-TC; 82248-TC; 82607-TC; 82962-TC; 83540-TC; 83605-TC; 84443-TC; 84484-TC; 85025-TC; 85610-TC; 85730-TC; 86706; 87040-TC; 87081-TC; 87340; 90935-TC; 93307-TC; 94799-TC; 97116-TC; 97530-TC; A4216; A4217; A6403; C9113; C9803; G0378; J0360; J0456; J0696; J1630; J1644; J1815; J1956; J2060; J2543; J3370; J3490; J7030; J7040; J7042; J7050; J7060; P9047

== ENCOUNTER 2022-05-10 11:17 | Inpatient (IN) | payer OTHER ==
[~2022-05-10] VITALS: Ht 170.2 cm; Wt 72.6 kg
[2022-05-10] VITALS (10 sets, daily range): BP systolic 123–156; BP diastolic 70–108
[~2022-05-10 11:17] MED LIST: ATOR40TA PO; DULO30CA52 PO; FOLI0.8T23 PO; GABA300C PO; NIFE-35 PO; OMEP20CA15 PO; SEVE800T28 PO; TAMS-12 PO
--- NOTE | 2022-05-10 11:27 | NUR ---
DR POE AT BEDSIDE FOR EVAL
--- NOTE | 2022-05-10 11:30 | NUR ---
PT GOT DIALYZED LAST TUESDAY, PER PT
--- NOTE | 2022-05-10 11:45 | NUR ---
PHLEB AT BEDSIDE FOR BLOOD DRAW
--- NOTE | 2022-05-10 11:49 | NUR ---
PCR AND RAPID FLU SWAB COLLECTED AND SENT TO LAB
--- NOTE | 2022-05-10 11:50 | NUR ---
PT UNABLE TO PROVIDE URINE SAMPLE AT THIS TIME; PER PT, HE IS ON DIALYSIS AND "DOES NOT PEE MUCH". URINAL AT BEDSIDE.
[2022-05-10 12:05] LABS: BASOPHILS # (AUTO) 0.1 K/uL (0.0-0.2); BASOPHILS % (AUTO) 1.1 % (0.0-2.0); EOSINOPHILS % (AUTO) 0.1 % (0.0-6.0); HEMATOCRIT 29 % (39-51); HEMOGLOBIN 9.1 g/dL (13.5-17.5); LYMPHOCYTES # (AUTO) 0.5 K/uL (0.8-4.8); LYMPHOCYTES % (AUTO) 4.1 % (20.0-44.0); MEAN CORPUSCULAR HGB CONC 32 g/dl (31.0-36.0); MEAN CORPUSCULAR VOLUME 104 fL (80-96); MONOCYTES # (AUTO) 0.5 K/uL (0.1-1.30); MONOCYTES % (AUTO) 4.6 % (2.0-12.0); NEUTROPHILS # (AUTO) 10.1 K/uL (1.8-8.9); NEUTROPHILS % (AUTO) 90.1 % (43.0-81.0); PLATELET COUNT (AUTO) 146 K/uL (150-450); RED BLOOD CELL COUNT(AUTO) 2.77 MIL/uL (4.5-6.0); WHITE BLOOD COUNT (AUTO) 11.2 K/uL (4.3-11.0)
[2022-05-10] MEDS ORDERED: VANCOMYCIN 1 GM in IV D5W 250 ML IV ONE (12:30)
[2022-05-10] MEDS ORDERED: ASPIRIN 325 MG TABLET PO ONE (12:30)
[2022-05-10] MEDS ORDERED: ASPIRIN 325 MG TABLET ONE (12:30)
[2022-05-10 12:32] LABS: ALANINE AMINOTRANSFERASE 36 U/L (12-78); ALBUMIN 2.9 g/dL (3.4-5.0); ALKALINE PHOSPHATASE 60 U/L (46-116); ASPARTATE AMINOTRANSFERASE 38 U/L (15-37); BILIRUBIN,DIRECT 0.3 mg/dL (0.0-0.2); CALCIUM, SERUM 9.2 mg/dL (8.5-10.1); CARBON DIOXIDE 24 mmol/L (21-32); CHLORIDE 96 mmol/L (98-107); GLUCOSE 159 mg/dL (74-106); SODIUM SERUM 133 mmol/L (136-145); TOTAL PROTEIN, SERUM 7.4 g/dL (6.4-8.2); UREA NITROGEN, BLOOD 52 mg/dL (7-18)
--- NOTE | 2022-05-10 12:37 | NUR ---
URINE SAMPLE COLLECTED AND SENT TO LAB
[2022-05-10 12:54] LABS: CREATININE 8.6 mg/dL (0.6-1.3)
[2022-05-10 13:36] LABS: BILIRUBIN,URINE NEGATIVE (NEGATIVE); COLOR,URINE YELLOW (YELLOW); LEUKOCYTE ESTERASE ,URINE NEGATIVE (NEGATIVE); NITRITE, URINE NEGATIVE (NEGATIVE); PROTEIN,URINE 3+ mg/dl (NEGATIVE); UGLUCOSE 1+ mg/dL (NEGATIVE); UROBILINOGEN,URINE 0.2 EU/dL (0.2)
[2022-05-10 13:51] LABS: BACTERIA,URINE Few /HPF (None Seen); SQUAMOUS EPITHELIAL CELL,UR Few /HPF (None Seen)
--- NOTE | 2022-05-10 13:56 | NUR ---
CORBY [phone]
--- NOTE | 2022-05-10 14:14 | NUR ---
DR. SCHAFER CALLED BACK AND AWARE OF PT NEEDING DIALYSIS.
[2022-05-10] MEDS ORDERED: NIFE-35 PO (14:45)
--- NOTE | 2022-05-10 14:45 | NUR ---
ROOM 261
--- NOTE | 2022-05-10 15:05 | NUR ---
PT SEEN BY DR CHRISTENSEN AT BEDSIDE
[2022-05-10] MEDS ORDERED: METOPROLOL TARTRATE 50 MG TABLET ONE (15:11)
--- NOTE | 2022-05-10 15:45 | NUR ---
COVID SWAB COLLECTED AND SENT TO LAB
--- NOTE | 2022-05-10 16:09 | NUR ---
PER CORBY, WELDING PRODUCTION SUPERVISOR, WILL CALL BACK FOR COVID TEST RESULT. ACCEPTED AT [facility] BUT NEEDS COVID TEST RESULT.
[2022-05-10] MEDS ORDERED: METOPROLOL TARTRATE 50 MG TABLET PO SCH (17:00)
--- NOTE | 2022-05-10 17:04 | NUR ---
SPOKE W/ CORBY, [employer] SUPERINTENDENT, AND INFORMED ABOUT COVID NEGATIVE TEST. PER CORBY, SHE SPOKE W/ DR. CHRISTENSEN AND PT WILL STAY HERE AT [facility] INSTEAD. CHARGE NURSE MADE AWARE.
--- NOTE | 2022-05-10 17:11 | NUR ---
PT REPORT GIVEN TO AICHA, STOCK SELECTOR
[2022-05-10] MEDS ORDERED: PIPERACILLIN /TAZOBACTAM 3.375 G in IV D5W 50 ML IV SCH (18:00)
--- NOTE | 2022-05-10 18:47 | NUR ---
PT TRANSFERRED TO ICU 261 VIA [facility] ACLS PROTOCOL. WARM HANDOFF GIVEN TO DESHAUN HOLCOMB
--- NOTE | 2022-05-10 18:53 | NUR ---
RN NOTE PT RECEIVED FROM ER. PT IS A/OX4, ON 2L O2 VIA NC SAT 98% WITH SOB. SKIN IS INTACT. LAST HD WAS 05/08/22. IV ACCESS L AV FISTULA AND R AC 18G. BED IS LOCKED IN LOWEST POSITION X2 BED RAILS UP AND CALL LIGHT IS WITHIN REACH. WILL ENDORSE TO [facility] NURSE NURSE FOR ERICKA.
--- NOTE | 2022-05-10 19:05 | NUR ---
RN OPENING NOTES RECEIVED PATIENT ON BED, SLEEPING BUT AROUSE EASILY, A/O X 4, ON NASAL CANULA @ 2LPM SATING AT 95%, PATIENT IS TACHYPNEIC, AFEBRILE. NOTED WITH RAC #18 PERIPHERAL LINE, FLUSHED WITH NS, NO S/S OF INFILTRATION NOTED. NOAH AV SHUNT FOR HD, NO ACTIVE BLEEDING NOTED. ALL SAFETY MEASURE PROVIDED. BED IN LOWEST POSITION, LOCKED, BED ALARM ARMED. CALL LIGHT WITH IN REACH. CONTINUE TO MONITOR.
--- NOTE | 2022-05-10 19:30 | NUR ---
RN NOTES NOTIFIED DR. CHRISTENSEN, PATIENT ON AND OFF AFIB IN MONITOR, PER DR. CHRISTENSEN PATIENT ALREADY ON ELIQUIS.
--- NOTE | 2022-05-10 19:45 | NUR ---
RN NOTED OBTAINED TELEPHONE CONSENT FOR HEMODIALYSIS WITH PATIENT'S DAUGHTER REX URBAN, VERIFIED WITH CHARGE NURSE JANETTE.
[2022-05-10] MEDS ORDERED: DEXTROSE 50%-WATER 50 ML DISP.SYRIN IV PRN (20:00)
[2022-05-10] MEDS ORDERED: ACETAMINOPHEN 325 MG TABLET PO PRN (20:00)
--- NOTE | 2022-05-10 20:20 | NUR ---
RN NOTES HD STARTED
[2022-05-10] MEDS ORDERED: OSELTAMIVIR PHOSPHATE 75 MG CAPSULE PO SCH (20:30)
[2022-05-10] MEDS ORDERED: VANCOMYCIN 500 MG in IV D5W 100 ML IV PRN (21:00)
[2022-05-10] MEDS ORDERED: OSELTAMIVIR PHOSPHATE SUSP 6 MG/ML BOTTLE PO SCH (22:00)
--- NOTE | 2022-05-10 23:15 | NUR ---
RN NOTES DIALYSIS DONE, REMOVED 2000ML OUTPUT.
[2022-05-10] MEDS: APIXABAN 2.5 MG TABLET PO SCH (23:32)
[2022-05-10] MEDS: GABAPENTIN 300 MG CAPSULE PO SCH (23:33)
[2022-05-11] VITALS (34 sets, daily range): BP systolic 100–197; BP diastolic 41–114
[2022-05-11] MEDS: BLOOD SUGAR DIAGNOSTIC 1 EACH STRIP IN SCH ×2 (00:06→05:39)
[2022-05-11] MEDS: INSULIN REGULAR, HUMAN 100 UNIT/ML 3 ML VIAL SQ PRN ×3 (00:07→17:46)
--- NOTE | 2022-05-11 00:07 | NUR ---
RN NOTES NOTED WITH BLOOD SUGAR 104 mg/dL, NO INSULIN COVERAGE PER SLIDING SCALE, NO S/S OF HYPOGLYCEMIA NOTED. CONTINUE TO MONITOR.
[2022-05-11] MEDS: PIPERACILLIN /TAZOBACTAM 2.25 G in IV D5W 50 ML IV SCH ×2 (00:24→05:46)
[2022-05-11] MEDS: IV NS 0.9% 250 ML IV PRN ×2 (00:24→16:12)
[2022-05-11 05:07] LABS: BASOPHILS # (AUTO) 0.1 K/uL (0.0-0.2); BASOPHILS % (AUTO) 0.7 % (0.0-2.0); EOSINOPHILS % (AUTO) 0.4 % (0.0-6.0); HEMATOCRIT 29 % (39-51); HEMOGLOBIN 9.4 g/dL (13.5-17.5); LYMPHOCYTES # (AUTO) 0.7 K/uL (0.8-4.8); LYMPHOCYTES % (AUTO) 8.4 % (20.0-44.0); MEAN CORPUSCULAR HGB CONC 33 g/dl (31.0-36.0); MEAN CORPUSCULAR VOLUME 102 fL (80-96); MONOCYTES # (AUTO) 0.8 K/uL (0.1-1.30); MONOCYTES % (AUTO) 8.8 % (2.0-12.0); NEUTROPHILS % (AUTO) 81.7 % (43.0-81.0); PLATELET COUNT (AUTO) 169 K/uL (150-450); RED BLOOD CELL COUNT(AUTO) 2.83 MIL/uL (4.5-6.0); WHITE BLOOD COUNT (AUTO) 8.6 K/uL (4.3-11.0)
[2022-05-11 05:18] LABS: CREATININE 6.9 mg/dL (0.6-1.3)
--- NOTE | 2022-05-11 05:40 | NUR ---
RN NOTES NOTED WITH BLOOD SUGAR 102 mg/dL, NO INSULIN COVERAGE PER SLIDING SCALE, NO S/S OF HYPOGLYCEMIA NOTED. CONTINUE TO MONITOR.
--- NOTE | 2022-05-11 07:30 | NUR ---
RN OPENING NOTE PT OBSERVED IN BED WITH HOB >30. PT IS ON 2L O2 VIA NC O2 SAT 97%. PT IS A/OX4. PT IS ANURIC. IV ACCESS R AC AND L AV FISTULA. BED IS LOCKED IN LOWEST POSITION X2 BED RAILS UP CALL LIGHT IS WITHIN REACH AND ALL HOSPITAL SAFETY MEASURES ARE IN PLACE. WILL CONTINUE TO MONITOR THIS SHIFT.
[2022-05-11] MEDS ORDERED: OSELTAMIVIR PHOSPHATE SUSP 6 MG/ML BOTTLE PO SCH (07:55)
[2022-05-11] MEDS ORDERED: AMIODARONE 450 MG in IV D5W 250 ML IV PRN (08:00)
[2022-05-11] MEDS ORDERED: AMIODARONE 450 MG in IV D5W 241 ML IV PRN (08:00)
[2022-05-11] MEDS ORDERED: AMIODARONE 150 MG in IV D5W 100 ML IV ONE (08:00)
[2022-05-11] MEDS: SEVELAMER CARBONATE 800 MG TABLET PO SCH ×3 (08:07→17:09)
[2022-05-11] MEDS: DULOXETINE HCL 30 MG CAPSULE.DR PO SCH ×2 (08:07→17:09)
[2022-05-11] MEDS: NIFEdipine XL (30MG) 30 MG TAB PO SCH ×2 (08:07→17:09)
[2022-05-11] MEDS: FOLIC ACID 1 MG TABLET PO SCH (08:08)
[2022-05-11] MEDS: TAMSULOSIN 0.4 MG CAP.SR.24H PO SCH (08:08)
[2022-05-11] MEDS: APIXABAN 2.5 MG TABLET PO SCH ×2 (08:11→17:10)
[2022-05-11] MEDS: PANTOPRAZOLE 40 MG TABLET.DR PO SCH (08:21)
[2022-05-11] MEDS ORDERED: METOPROLOL TARTRATE 50 MG TABLET PO SCH ×2 (09:00)
[2022-05-11] MEDS ORDERED: DILTIAZEM HCL IV 125 MG in IV NS 0.9% 100 ML IV PRN (09:00)
--- NOTE | 2022-05-11 10:30 | NUR ---
RN NOTE: CARDIZEM MEDICATION WAS STARTED AND WAS NOT SCANNED. STARTING RATE @ 5 MG/HR.
[2022-05-11] MEDS ORDERED: DEXTROSE 50%-WATER 50 ML DISP.SYRIN IV PRN (11:30)
[2022-05-11] MEDS: BLOOD SUGAR DIAGNOSTIC 1 EACH STRIP VI SCH ×3 (12:44→22:07)
[2022-05-11] MEDS ORDERED: CEFTRIAXONE 1 G in IV D5W 50 ML IV SCH (15:00)
[2022-05-11] MEDS ORDERED: DIGOXIN INJ 0.5 MG/2 ML AMPUL IV STA (15:44)
[2022-05-11] MEDS ORDERED: METOPROLOL TARTRATE 50 MG TABLET PO STA (15:44)
--- NOTE | 2022-05-11 16:00 | NUR ---
RN NOTE: CARDIZEM CARDIZEM STOPPED AT THIS TIME. DOSE CONTINUED FROM START @ 5MG/HR AND WAS MAINTAINED AT 5MG/HR UNTIL STOP TIME @1600.
[2022-05-11] MEDS: ATORVASTATIN 40 MG TABLET PO SCH (17:09)
--- NOTE | 2022-05-11 18:53 | NUR ---
RN NOTE: [facility] NOTIFIED THAT MEDICATION WAS ACCIDENTALLY NOT SCANNED. PHARMACY WAS INFORMED THAT ADMINISTRATION TIME WAS @1030 AT 5MG/HR AND WAS MAINTAINED AT 5MG/HR UNTIL STOP TIME @1600. MEDICATION WAS DISCARDED AFTER BEING STOPPED.
--- NOTE | 2022-05-11 19:10 | NUR ---
RN OPENING NOTES RECEIVED PATIENT ON BED, AWAKE, WATCHING TV, A/O X 4, ON NASAL CANULA @ 5LPM SATING AT 97%, AFEBRILE. NO S/S OF DISTRESS NOTED. NOTED WITH DOMINICK MID LINE AND RIGHT CEPHALIC MID LINE, FLUSHED WITH NS, NO S/S OF INFILTRATION NOTED. NOAH AV SHUNT FOR HD, NO ACTIVE BLEEDING NOTED. ALL SAFETY MEASURES PROVIDED. BED IN LOWEST POSITION, LOCKED, BED ALARM ARMED. CALL LIGHT WITH IN REACH. CONTINUE TO MONITOR.
--- NOTE | 2022-05-11 19:24 | NUR ---
RN CLOSING NOTE PT IS IN BED WITH HOB >30. PT IS ON 2L O2 VIA NC O2 SAT 97%. PT IS A/OX4. PT IS ANURIC. IV ACCESS R UA MIDLINE AND R CEPHALIC AND L AV FISTULA. PT RECEIVED CARDIZEM TODAY AND FINISHED AT 1600 AND CONVERTED TO NSR. PT HAD 1 BM AND HAD HD AND 2L REMOVED. BED IS LOCKED IN LOWEST POSITION X2 BED RAILS UP CALL LIGHT IS WITHIN REACH AND ALL HOSPITAL SAFETY MEASURES ARE IN PLACE. WILL ENDORSE TO FOOT SETTER NURSE FOR ERICKA.
--- NOTE | 2022-05-11 19:30 | NUR ---
RN NOTES PATIENT NOTED WITH BP- 185/89, PULSE 70, DR CHRISTENSEN MADE AWARE WITH NEW ORDER CLONIDINE 0.1 MG PO Q6HR PRN FOR SBP GREATER THAN 150, NOTED AND CARRIED OUT.
[2022-05-11] MEDS ORDERED: CLONIDINE HCL 0.1 MG TABLET PO PRN (20:00)
--- NOTE | 2022-05-11 20:45 | NUR ---
RN NOTES PATIENT C/O OF CHEST PRESSURE, EKG DONE. NOTIFIED DR. CHRISTENSEN WITH NEW ORDER MORPHINE 2MG IV, Q2HR PRN FOR PAIN, ZOFRAN 4MG IV Q6HR PRN FOR N/V, TROPONIN Q6HR X 3 NOTED AND CARRIED OUT.
[2022-05-11] MEDS: GABAPENTIN 300 MG CAPSULE PO SCH (21:06)
[2022-05-11] MEDS: METOPROLOL TARTRATE 50 MG TABLET PO SCH (21:07)
[2022-05-11] MEDS ORDERED: MORPHINE SULFATE INJ 2 MG/ML DISP.SYRIN IV PRN (21:30)
[2022-05-11] MEDS ORDERED: ZOLPIDEM TARTRATE 5 MG TABLET PO PRN (21:30)
[2022-05-11] MEDS ORDERED: ONDANSETRON HCL/PF 4 MG/2 ML VIAL IV PRN (21:30)
[2022-05-11] MEDS: *INSULIN REGULAR(HUMULIN R)HUM 100 UNIT/ML VIAL SQ PRN (22:08)
--- NOTE | 2022-05-11 22:08 | NUR ---
RN NOTES NOTED WITH BLOOD SUGAR 130 mg/dL, NO INSULIN COVERAGE PER SLIDING SCALE, NO S/S OF HYPOGLYCEMIA NOTED. CONTINUE TO MONITOR.
--- NOTE | 2022-05-11 22:16 | NUR ---
RN NOTES RECEIVED LATEST TROPONIN RESULT 69.
--- NOTE | 2022-05-11 22:45 | NUR ---
RN NOTES REPORT GIVEN TO DESHAUN JOSEPH FOR CONTINUITY OF CARE
--- NOTE | 2022-05-11 22:55 | NUR ---
RN NOTES PATIENT TRANSFERED TO ROOM 106 VIA ACLS PROTOCOL, PATIENT IN STABLE CONDITION.
[2022-05-12] VITALS: BP 140/90
[2022-05-12 04:00] VITALS: BP 130/62
[2022-05-12 06:23] LABS: BASOPHILS # (AUTO) 0.1 K/uL (0.0-0.2); BASOPHILS % (AUTO) 0.9 % (0.0-2.0); EOSINOPHILS % (AUTO) 5.3 % (0.0-6.0); HEMATOCRIT 27 % (39-51); HEMOGLOBIN 8.9 g/dL (13.5-17.5); LYMPHOCYTES # (AUTO) 0.7 K/uL (0.8-4.8); LYMPHOCYTES % (AUTO) 9.4 % (20.0-44.0); MEAN CORPUSCULAR HGB CONC 33 g/dl (31.0-36.0); MEAN CORPUSCULAR VOLUME 100 fL (80-96); MONOCYTES # (AUTO) 0.9 K/uL (0.1-1.30); MONOCYTES % (AUTO) 11.1 % (2.0-12.0); NEUTROPHILS # (AUTO) 5.8 K/uL (1.8-8.9); NEUTROPHILS % (AUTO) 73.3 % (43.0-81.0); PLATELET COUNT (AUTO) 175 K/uL (150-450); RED BLOOD CELL COUNT(AUTO) 2.68 MIL/uL (4.5-6.0)
[2022-05-12 06:46] LABS: CALCIUM, SERUM 8.1 mg/dL (8.5-10.1); CREATININE 6.5 mg/dL (0.6-1.3); POTASSIUM 4.3 mmol/L (3.5-5.1)
--- NOTE | 2022-05-12 06:57 | NUR ---
FACILITIES MANAGEMENT EXECUTIVE CLOSING NOTE PT IS IN BED WITH HOB >30. PT IS ON 5L O2 VIA NC O2 SAT 97%. PT IS A/OX4. PT IS ANURIC. IV ACCESS R UA MIDLINE AND R CEPHALIC AND L AV FISTULA. ON TEL MONITORING CURRENTLY READING SR AT 70, SAFETY MEASURES IN PLACED, ISOLATION MAINTAINED, BED IS LOCKED IN LOWEST POSITION X2 BED RAILS UP CALL LIGHT IS WITHIN REACH AND ALL HOSPITAL SAFETY MEASURES ARE IN PLACE. WILL ENDORSE TO AM SHIFT NURSE FOR ERICKA.
--- NOTE | 2022-05-12 07:26 | NUR ---
BATCH AND FURNACE OPERATOR OPENING NOTE PT IS IN BED WITH HOB >30. PT IS ON 5L O2 VIA NC O2 SAT 97%. PT IS ASLEEP BREATHING EVENLY AND UNLABORED. IV ACCESS R UA MIDLINE AND R CEPHALIC AND L AV FISTULA. ON TEL MONITORING CURRENTLY READING SR AT 70, SAFETY MEASURES IN PLACED, ISOLATION MAINTAINED, BED IS LOCKED IN LOWEST POSITION X2 BED RAILS UP CALL LIGHT IS WITHIN REACH AND ALL HOSPITAL SAFETY MEASURES ARE IN PLACE. WILL CONTINUE PLAN OF CARE AND ANTICIPATE NEEDS.
[2022-05-12] MEDS: SEVELAMER CARBONATE 800 MG TABLET PO SCH ×3 (07:46→17:06)
[2022-05-12] MEDS: PANTOPRAZOLE 40 MG TABLET.DR PO SCH (07:46)
[2022-05-12] MEDS: BLOOD SUGAR DIAGNOSTIC 1 EACH STRIP VI SCH ×4 (07:47→21:17)
[2022-05-12] MEDS: INSULIN REGULAR, HUMAN 100 UNIT/ML 3 ML VIAL SQ PRN ×2 (07:49→11:33)
[2022-05-12 08:00] VITALS: BP 123/67
[2022-05-12] MEDS: TAMSULOSIN 0.4 MG CAP.SR.24H PO SCH (08:24)
[2022-05-12] MEDS: NIFEdipine XL (30MG) 30 MG TAB PO SCH ×3 (08:24→17:05)
[2022-05-12] MEDS: DULOXETINE HCL 30 MG CAPSULE.DR PO SCH ×2 (08:25→17:05)
[2022-05-12] MEDS: FOLIC ACID 1 MG TABLET PO SCH (08:25)
[2022-05-12] MEDS: METOPROLOL TARTRATE 50 MG TABLET PO SCH ×3 (08:25→17:05)
[2022-05-12] MEDS: APIXABAN 2.5 MG TABLET PO SCH ×2 (08:25→17:07)
[2022-05-12] MEDS: glipiZIDE 5 MG TABLET PO SCH (08:38)
[2022-05-12] MEDS: PIPERACILLIN /TAZOBACTAM 2.25 G in IV D5W 50 ML IV SCH ×3 (11:35→19:13)
[2022-05-12 12:00] VITALS: BP 146/67
--- NOTE | 2022-05-12 12:30 | NUR ---
RESIDENTIAL LIFE DIRECTOR NOTES PT AGREED AND SIGNED CONSENT TO DO A CT SCAN OF THE CORONARY ARTERY WITH CONTRAST.
--- NOTE | 2022-05-12 12:40 | NUR ---
RENAL DIALYSIS RN NOTES PT PICKED UP BY RADIOLOGY FOR CT SCAN OF THE CORONARY ARTERY.
[2022-05-12] MEDS ORDERED: IOHEXOL-300 100 ML VIAL IV ONE (12:51)
[2022-05-12] MEDS ORDERED: CT SWABBABLE VALVE TRANS SET 1 EA INFUS.SET MC ONE (12:51)
[2022-05-12] MEDS ORDERED: METOPROLOL TARTRATE INJ 5 MG/5 ML AMPUL ONE ×3 (13:04→13:34)
--- NOTE | 2022-05-12 13:05 | NUR ---
RN/CTA PATIENT AOX3, ABLE TO MAKE NEEDS KNOWN. AWARE OF THE PLAN OF CARE/CTA. NOTED CONSENT IN CHART-SIGNED. DENIES ANY PAIN OR CP AT THIS TIME. ON 4L NC. NO C/O SOB.
[2022-05-12] MEDS: METOPROLOL TARTRATE INJ 5 MG/5 ML AMPUL IVP PRN ×8 (13:15→13:50)
--- NOTE | 2022-05-12 14:10 | NUR ---
RN/CTA PATIENT BACK TO THE ROOM. DENIED PAIN OR SOB. UNABLE TO COMPLETE PROCEDURE AT THIS TIME D/T CT MACHINE TECHNICAL DIFFICULTY. REPORT GIVEN FOR ERICKA TO DESHAUN HERNANDEZ/CN.
[2022-05-12] MEDS ORDERED: NITROGLYCERIN 0.4 MG/TAB BOTTLE SL ONE (14:30)
--- NOTE | 2022-05-12 14:50 | NUR ---
FELT CEMENTER NOTES SEVELAMER 800MG GIVEN LATE D/T PT GONE FOR CT SCAN.
[2022-05-12 16:00] VITALS: BP 118/62
--- NOTE | 2022-05-12 16:15 | NUR ---
FINANCIAL SYSTEMS DIRECTOR NOTES PT STARTED ON HD. BP 132/72, HR 77, TEMP 97.6. WILL CONTINUE TO MONITOR.
[2022-05-12] MEDS: ATORVASTATIN 40 MG TABLET PO SCH (17:06)
--- NOTE | 2022-05-12 17:10 | NUR ---
MANAGER COSTING NOTES METOPROLOL TARTRATE 100MG AND PROCARDIA 30MG HELD D/T PT STARTING HD.
--- NOTE | 2022-05-12 18:44 | NUR ---
[facility] [place] CLOSING NOTES PT IS AWAKE IN BED CURRENTLY STILL ON HD AND TOLERATING IT WELL. PT IS ON 5L O2 VIA NC O2 SAT 98%. PT IS A/OX4. IV ACCESS DOMINICK MIDLINE AND R CEPHALIC AND LAV FISTULA. ON TEL MONITORING CURRENTLY READING SR AT 71, SAFETY MEASURES IN PLACED, ISOLATION MAINTAINED, BED IS LOCKED IN LOWEST POSITION X2 BED RAILS UP CALL LIGHT IS WITHIN REACH AND ALL HOSPITAL SAFETY MEASURES ARE IN PLACE. WILL ENDORSE TO ONCOMING NURSE.
--- NOTE | 2022-05-12 19:10 | NUR ---
FLOOR POLISHER OPENING NOTE RECEIVED PT IS IN BED A/OX4, PT IS ON 5L O2 VIA NC O2, TOLERATING WELL, NO S/S OF DISTRESS. PT FINISHING HD, OUTPUT OF 2L. IV ACCESS R UA MIDLINE AND R CEPHALIC AND L AV FISTULA. ON TEL MONITORING CURRENTLY READING SR AT 70, PT ABLE TO MAKE NEEDS KNOWN. ALL SAFETY MEASURES IN PLACE. SAFETY MEASURES IN PLACED, ISOLATION MAINTAINED, BED IS LOCKED IN LOWEST POSITION X2 BED RAILS UP CALL LIGHT IS WITHIN REACH AND ALL HOSPITAL SAFETY MEASURES ARE IN PLACE. WILL CONTINUE PLAN OF CARE AND ANTICIPATE NEEDS.
[2022-05-12 20:00] VITALS: BP 118/82
[2022-05-12] MEDS ORDERED: OSELTAMIVIR PHOSPHATE 75 MG CAPSULE PO SCH (21:00)
[2022-05-12] MEDS: GABAPENTIN 300 MG CAPSULE PO SCH (21:07)
[2022-05-12] MEDS: *INSULIN REGULAR(HUMULIN R)HUM 100 UNIT/ML VIAL SQ PRN (21:18)
[2022-05-13] VITALS: BP 122/71
[2022-05-13] MEDS: PIPERACILLIN /TAZOBACTAM 2.25 G in IV D5W 50 ML IV SCH ×3 (00:49→11:10)
[2022-05-13 04:00] VITALS: BP 127/63
[2022-05-13 06:34] LABS: CALCIUM, SERUM 8.5 mg/dL (8.5-10.1); CREATININE 5.6 mg/dL (0.6-1.3); POTASSIUM 4.2 mmol/L (3.5-5.1)
--- NOTE | 2022-05-13 06:53 | NUR ---
PUBLIC SPEAKING COACH CLOSING NOTE PT IS IN BED A/OX4, PT IS ON 5L O2 VIA NC O2, TOLERATING WELL, NO S/S OF DISTRESS. IV ACCESS R UA MIDLINE AND R CEPHALIC AND L AV FISTULA. ON TEL MONITORING CURRENTLY READING SR AT 76, PT ABLE TO MAKE NEEDS KNOWN.ALL DUE MEDS GIVEN.ALL SAFETY MEASURES IN PLACE. SAFETY MEASURES IN PLACED, ISOLATION MAINTAINED, BED IS LOCKED IN LOWEST POSITION X2 BED RAILS UP CALL LIGHT IS WITHIN REACH AND ALL HOSPITAL SAFETY MEASURES ARE IN PLACE.WILL ENDORSE TO MORNING SHIFT FOR ERICKA.
--- NOTE | 2022-05-13 07:52 | NUR ---
MIKIE RN NOTE PT IS IN BED A/OX4, PT IS ON 5L O2 VIA NC O2, TOLERATING WELL, NO S/S OF DISTRESS. IV ACCESS R UA MIDLINE AND R CEPHALIC AND L AV FISTULA. ON TEL MONITORING CURRENTLY READING SR PT ABLE TO MAKE NEEDS KNOWN.ALL DUE MEDS GIVEN.ALL SAFETY MEASURES IN PLACE. SAFETY MEASURES IN PLACED, ISOLATION MAINTAINED, BED IS LOCKED IN LOWEST POSITION X2 BED RAILS UP CALL LIGHT IS WITHIN REACH AND ALL HOSPITAL SAFETY MEASURES ARE IN PLACE ,WILL CONT TO MONITOR
[2022-05-13] MEDS: DULOXETINE HCL 30 MG CAPSULE.DR PO SCH (08:17)
[2022-05-13] MEDS: PANTOPRAZOLE 40 MG TABLET.DR PO SCH (08:18)
[2022-05-13] MEDS: FOLIC ACID 1 MG TABLET PO SCH (08:18)
[2022-05-13] MEDS: SEVELAMER CARBONATE 800 MG TABLET PO SCH ×2 (08:18→12:14)
[2022-05-13] MEDS: TAMSULOSIN 0.4 MG CAP.SR.24H PO SCH (08:18)
[2022-05-13] MEDS: glipiZIDE 5 MG TABLET PO SCH (08:18)
[2022-05-13] MEDS: APIXABAN 2.5 MG TABLET PO SCH (08:20)
[2022-05-13] MEDS: METOPROLOL TARTRATE 50 MG TABLET PO SCH (08:36)
[2022-05-13] MEDS: BLOOD SUGAR DIAGNOSTIC 1 EACH STRIP VI SCH ×2 (08:37→11:47)
[2022-05-13] MEDS ORDERED: GLIP5TAB13 PO (08:52)
[2022-05-13] MEDS ORDERED: APIX2.5T PO (08:52)
[2022-05-13] MEDS ORDERED: METO50TA16 PO (08:52)
[2022-05-13] MEDS ORDERED: LEVO250T59 PO (08:52)
[2022-05-13] MEDS ORDERED: NIFEdipine XL (30MG) 30 MG TAB PO SCH (09:00)
[2022-05-13 09:39] VITALS: BP 123/84
--- NOTE | 2022-05-13 10:30 | NUR ---
MIKIE RN NOTE ROUNDS MADE , ALL NEEDS ATTENDED, NOT IN DISTRESS
--- NOTE | 2022-05-13 11:44 | NUR ---
ezekiel rn note per dr felder ok to discharge home ,aware that ct angio cant be dome machine is broken , also dr briggs also ok to discharge
[2022-05-13 12:00] VITALS: BP 130/88
[2022-05-13] MEDS: INSULIN REGULAR, HUMAN 100 UNIT/ML 3 ML VIAL SQ PRN (12:14)
--- NOTE | 2022-05-13 12:53 | NUR ---
MIKIE RN NOTE DISCHARGE INSTRUCTION GIVEN ORDERED , INSTRUCTED TO F\U WITH PRIMARY CARE DOCTOR AND QUALITY IMPROVEMENT CONSULTANT , TAKE PX ORDERED, AND F\U WITH HD SCHEDULE, MID LINE REMOVED ON RT UPPER ARM DRY DRESSING APPLIED, NO BLEEDING NOTED , BELONGING CHECKED ,TAKEN TO LOBBY ON [address] C WITH DAUGHTER AT BEDSIDE WITH STABLE CONDITION,
== END 2022-05-13 13:14 | disposition home or self-care (01) | DRG 871 ==
LOC: ER 11:20 → ICU 17:08 → TELE1 05-11 22:58 → TELE-TD 05-12 21:30
PROVIDERS: ADMIT Internal Medicine; ATTEND Internal Medicine
PROC: 5A1D70Z Performance of Urinary Filtration, Intermittent, Less than 6 Hours Per Day (ICD-10-PCS; principal; 2022-05-10)
PROC: 05HD33Z Insertion of Infusion Device into Right Cephalic Vein, Percutaneous Approach (ICD-10-PCS; 2022-05-11)
PROC: 05HB33Z Insertion of Infusion Device into Right Basilic Vein, Percutaneous Approach (ICD-10-PCS; 2022-05-11)
DX: A41.9 Sepsis, unspecified organism (principal); I21.A1 Myocardial infarction type 2; J15.9 Unspecified bacterial pneumonia; J96.01 Acute respiratory failure with hypoxia; N18.6 End stage renal disease; J10.08 Influenza due to other identified influenza virus with other specified pneumonia; I13.2 Hypertensive heart and chronic kidney disease with heart failure and with stage 5 chronic kidney disease, or end stage renal disease; I50.22 Chronic systolic (congestive) heart failure; E87.1 Hypo-osmolality and hyponatremia; G93.40 Encephalopathy, unspecified; Z20.822 Contact with and (suspected) exposure to COVID-19; Z99.2 Dependence on renal dialysis; Z95.3 Presence of xenogenic heart valve; E11.22 Type 2 diabetes mellitus with diabetic chronic kidney disease; Z87.891 Personal history of nicotine dependence; I48.0 Paroxysmal atrial fibrillation; E78.5 Hyperlipidemia, unspecified; D53.9 Nutritional anemia, unspecified; E87.70 Fluid overload, unspecified; M89.8X9 Other specified disorders of bone, unspecified site; R59.0 Localized enlarged lymph nodes; I05.0 Rheumatic mitral stenosis
CPT/HCPCS: 36410; 36415; 71045-TC; 80048-TC; 80076-TC; 80202-TC; 81001; 82962-TC; 83605-TC; 84484-TC; 85025-TC; 85730-TC; 87040-TC; 87081-TC; 87086-TC; 90935-TC; 94799-TC; A6403; C9803; G0378; J0282; J0696; J1160; J1815; J2270; J2543; J3370; J3490; J7030; J7050; J7060; Q9967; U0003

== ENCOUNTER 2022-05-14 11:14 | Inpatient (IN) | payer OTHER ==
[~2022-05-14] VITALS: Ht 170.2 cm; Wt 72.6 kg
[~2022-05-14 11:14] MED LIST changes: +APIX2.5T PO; +GLIP5TAB13 PO; +LEVO250T59 PO; +METO50TA16 PO
--- NOTE | 2022-05-14 11:34 | NUR ---
PT SEEN BY DR BAUTISTA AT BEDSIDE
--- NOTE | 2022-05-14 11:36 | NUR ---
DIRECTOR TRANSITION AT BEDSIDE FOR XRAY
[2022-05-14] MEDS ORDERED: ONDANSETRON HCL/PF 4 MG/2 ML VIAL ONE ×2 (11:39→15:12)
--- NOTE | 2022-05-14 11:45 | NUR ---
IV LINE ESTABLISHED ON RAC #20, BLOOD DRAWN AND SENT TO LAB
--- NOTE | 2022-05-14 11:47 | NUR ---
ZOFRAN 4MG IV GIVEN INDICATED FOR C/O NAUSEA, DEENA WELL
--- NOTE | 2022-05-14 11:57 | NUR ---
RAPID COVID AND RAPID FLU SWABS OBTAINED AND SENT TO LAB
--- NOTE | 2022-05-14 11:57 | NUR ---
TECH AT BEDSIDE FOR EKG
[2022-05-14] MEDS ORDERED: ONDANSETRON HCL/PF 4 MG/2 ML VIAL IVP ONE (12:00)
[2022-05-14 12:42] LABS: BASOPHILS # (AUTO) 0.1 K/uL (0.0-0.2); BASOPHILS % (AUTO) 0.6 % (0.0-2.0); EOSINOPHILS % (AUTO) 2.2 % (0.0-6.0); HEMATOCRIT 32 % (39-51); HEMOGLOBIN 10.2 g/dL (13.5-17.5); LYMPHOCYTES # (AUTO) 0.6 K/uL (0.8-4.8); LYMPHOCYTES % (AUTO) 6.2 % (20.0-44.0); MEAN CORPUSCULAR HGB CONC 32 g/dl (31.0-36.0); MEAN CORPUSCULAR VOLUME 103 fL (80-96); MONOCYTES # (AUTO) 0.8 K/uL (0.1-1.30); NEUTROPHILS # (AUTO) 7.3 K/uL (1.8-8.9); PLATELET COUNT (AUTO) 190 K/uL (150-450); RED BLOOD CELL COUNT(AUTO) 3.08 MIL/uL (4.5-6.0); WHITE BLOOD COUNT (AUTO) 8.9 K/uL (4.3-11.0)
[2022-05-14 13:09] LABS: ALANINE AMINOTRANSFERASE 86 U/L (12-78); ALBUMIN 2.9 g/dL (3.4-5.0); ALKALINE PHOSPHATASE 344 U/L (46-116); ASPARTATE AMINOTRANSFERASE 57 U/L (15-37); BILIRUBIN,DIRECT 1.2 mg/dL (0.0-0.2); BILIRUBIN,TOTAL 1.6 mg/dL (0.2-1.0); CALCIUM, SERUM 8.6 mg/dL (8.5-10.1); CARBON DIOXIDE 28 mmol/L (21-32); CHLORIDE 96 mmol/L (98-107); GLUCOSE 104 mg/dL (74-106); POTASSIUM 4.2 mmol/L (3.5-5.1); SODIUM SERUM 132 mmol/L (136-145); UREA NITROGEN, BLOOD 57 mg/dL (7-18)
--- NOTE | 2022-05-14 14:04 | NUR ---
CORBY REGAL [phone]
[2022-05-14] MEDS ORDERED: ONDANSETRON HCL/PF 4 MG/2 ML VIAL IV ONE (15:00)
[2022-05-14] MEDS ORDERED: MORPHINE SULFATE INJ 2 MG/ML DISP.SYRIN IV ONE (15:00)
[2022-05-14] MEDS ORDERED: MORPHINE SULFATE INJ 4 MG/ML DISP.SYRIN ONE (15:12)
--- NOTE | 2022-05-14 16:02 | NUR ---
CONTACTED DR. FERMIN LANTIGUA .
[2022-05-14] MEDS ORDERED: PIPERACILLIN /TAZOBACTAM 2.25 G in IV D5W 50 ML IV SCH (17:00)
[2022-05-14] MEDS ORDERED: ONDANSETRON HCL/PF 4 MG/2 ML VIAL IV PRN (17:00)
[2022-05-14] MEDS: DULOXETINE HCL 30 MG CAPSULE.DR PO SCH (17:00)
[2022-05-14] MEDS: METOPROLOL TARTRATE 50 MG TABLET PO SCH (18:00)
[2022-05-14] MEDS: PANTOPRAZOLE 40 MG VIAL IV SCH (18:20)
[2022-05-14] MEDS: NIFEdipine XL (30MG) 30 MG TAB PO SCH (18:20)
[2022-05-14] MEDS ORDERED: PANTOPRAZOLE 40 MG VIAL ONE (18:21)
[2022-05-14] MEDS: PIPERACILLIN /TAZOBACTAM 2.25 G in IV D5W 50 ML IV SCH (18:30)
--- NOTE | 2022-05-14 19:53 | NUR ---
RECEIVED REPORT FROM DESHAUN COPELAND. A HEMODIALYSIS PATIENT WITH LEFT AV SHUNT. MISSED HD TODAY. PATIENT IS AAOX4. ABLE TO MAKE NEEDS KNOWN. WITH IV LINE ON RIGHT AC G20. PATIENT IS ATTACHED TO MONITOR. VITALS CHECKED.
--- NOTE | 2022-05-14 20:36 | NUR ---
REPORT GIVEN TO DESHAUN ROE
--- NOTE | 2022-05-14 21:00 | NUR ---
RN RECEIVING NOTE FROM ER PATIENT RECEIVED FROM ER VIA HELEN KWAN. A/OX4. PATIENT WAS ABLE TO AMBULATE TO HIS ASSIGNED BED. NO S/S OF DISTRESS, BREATHING W/O DIFFICULTY ON ROOM AIR. LAV FISTULA; RAC #20 SL INTACT AND PATENT. PATIENT WAS ORIENTED TO THE UNIT. PATIENT GIVEN CALL GARCIA AND INSTRUCTED ON ITS USE. BELONGINGS ACCOUNTED FOR, LOGGED IN TO SHEET, AND PLACED IN CHART. ALL QUESTIONS AND CONCERNS ADDRESSED. SAFETY MEASURES IN PLACE: BED LOCKED AND AT LOWEST POSITION, RAILS UP X2, CALL GARCIA WITHIN REACH. WILL CONTINUE TO MONITOR PATIENT.
--- NOTE | 2022-05-14 21:09 | NUR ---
TRANSFERRED PATIENT TO ROOM VIA ACLS.
[2022-05-14] MEDS: GABAPENTIN 300 MG CAPSULE PO SCH (22:07)
[2022-05-14] MEDS: ENOXAPARIN SODIUM 80 MG/0.8 ML DISP.SYRIN SQ SCH (22:09)
--- NOTE | 2022-05-14 22:22 | NUR ---
RN NOTE PATIENT WANTS TO BE DNR. DR. JENY RIVERS WAS NOTIFIED AND ORDER GIVEN FOR DNR. PATIENT O/W STABLE; WILL CONTINUE TO MONITOR.
[2022-05-15] VITALS (7 sets, daily range): BP systolic 126–164; BP diastolic 74–99
[2022-05-15] MEDS: PIPERACILLIN /TAZOBACTAM 2.25 G in IV D5W 50 ML IV SCH ×3 (05:19→20:48)
[2022-05-15] MEDS: MORPHINE SULFATE INJ 2 MG/ML DISP.SYRIN IV PRN ×5 (05:33→19:27)
[2022-05-15 06:25] LABS: BASOPHILS % (AUTO) 0.4 % (0.0-2.0); EOSINOPHILS % (AUTO) 2.9 % (0.0-6.0); HEMATOCRIT 30 % (39-51); HEMOGLOBIN 9.8 g/dL (13.5-17.5); LYMPHOCYTES # (AUTO) 0.7 K/uL (0.8-4.8); LYMPHOCYTES % (AUTO) 9.8 % (20.0-44.0); MEAN CORPUSCULAR HGB CONC 32 g/dl (31.0-36.0); MEAN CORPUSCULAR VOLUME 103 fL (80-96); MONOCYTES # (AUTO) 0.9 K/uL (0.1-1.30); MONOCYTES % (AUTO) 11.9 % (2.0-12.0); NEUTROPHILS # (AUTO) 5.6 K/uL (1.8-8.9); PLATELET COUNT (AUTO) 187 K/uL (150-450); RED BLOOD CELL COUNT(AUTO) 2.96 MIL/uL (4.5-6.0); WHITE BLOOD COUNT (AUTO) 7.5 K/uL (4.3-11.0)
--- NOTE | 2022-05-15 06:53 | NUR ---
RN CLOSING NOTE PATIENT ASLEEP IN BED. A/OX4. NO S/S OF DISTRESS, BREATHING WITHOUT DIFFICULTY ON 2L NC. LAV FISTULA INTACT; RAC #20 SL INTACT AND PATENT. TELE READS SR 80. SAFETY MEASURES IN PLACE: BED LOCKED AND AT LOWEST POSITION, RAILS UP X2, CALL GARCIA WITHIN REACH. WILL ENDORSE TO NEXT SHIFT FOR ERICKA.
[2022-05-15 06:55] LABS: ALBUMIN 2.9 g/dL (3.4-5.0); BILIRUBIN,TOTAL 2.9 mg/dL (0.2-1.0); CALCIUM, SERUM 8.6 mg/dL (8.5-10.1); MAGNESIUM 2.6 mg/dL (1.8-2.4); POTASSIUM 4.5 mmol/L (3.5-5.1); TOTAL PROTEIN, SERUM 7.8 g/dL (6.4-8.2)
[2022-05-15] MEDS: SEVELAMER CARBONATE 800 MG TABLET PO SCH ×3 (08:00→18:00)
[2022-05-15] MEDS: DULOXETINE HCL 30 MG CAPSULE.DR PO SCH ×2 (09:00→17:00)
[2022-05-15] MEDS: PANTOPRAZOLE 40 MG VIAL IV SCH (09:00)
[2022-05-15] MEDS: NIFEdipine XL (30MG) 30 MG TAB PO SCH ×2 (09:55→19:24)
[2022-05-15] MEDS: TAMSULOSIN 0.4 MG CAP.SR.24H PO SCH (09:59)
[2022-05-15] MEDS: METOPROLOL TARTRATE 50 MG TABLET PO SCH ×2 (10:02→19:23)
--- NOTE | 2022-05-15 19:15 | NUR ---
MOUNT LOADER OPENING NOTES RECEIVED PATIENT SITTING ON BEDSIDE. A/O X4, UNDERGONE HD THIS AFTERNOON. DENIES SOB OR , VERBALIZED HE FEELS TIRED AND WANTS TO LAY DOWN. NOT IN APPARENT DISTRESS. C/O MODERATE RIGHT LOWER QUADRANT ABDOMINAL PAIN. ON TELE MONITOR READING SINUS RHYTHM AT 83 BPM. HAS RIGHT ANTECUBITAL IV ACCESS #20G AND SALINE LOCKED. NO S/S OF INFILTRATION NOTED. AMBULATORY WITH BRP. SAFETY PRECAUTIONS IN PLACE: BED IN LOWEST POSITION AND LOCKED, SIDE RAILS UP X2, CALL LIGHT WITHIN REACH. WILL CONTINUE POC. Addendum: 05/15/22 at 2032 by November SANTOS MEADE HAS LEFT UPPER ARM AV FISTULA, DRESSING C/D/I.
--- NOTE | 2022-05-15 20:00 | NUR ---
CLOSING NOTE BRANCH SERVICES MANAGER REPORT GIVEN TO INCOMING NURSE WITH PATIENT IN STABLE CONDITION. VITAL SIGNS STABLE. MORPHINE GIVEN FOR ABDOMINAL PAIN. NO SHORTNESS OF BREATH NOTED. PATIENT ASLEEP IN BED. RIGHT AC IV PATENT AND FLUSHED. LEFT ARM AV FISTULA NOTED DRY AND INTACT. NO ACUTE DISTRESS NOTED.
[2022-05-15] MEDS: ENOXAPARIN SODIUM 80 MG/0.8 ML DISP.SYRIN SQ SCH (20:44)
[2022-05-15] MEDS: GABAPENTIN 300 MG CAPSULE PO SCH (21:22)
[2022-05-16] VITALS: BP 137/76
[2022-05-16 04:00] VITALS: BP 127/93
[2022-05-16] MEDS: MORPHINE SULFATE INJ 2 MG/ML DISP.SYRIN IV PRN ×2 (04:23→08:33)
--- NOTE | 2022-05-16 04:30 | NUR ---
SLOT KEY PERSON NOTES PATIENT C/O ABDOMINAL PAIN 01/13. ADMINISTERED PRN MORPHINE 2MG, TOLERATED WELL.
[2022-05-16] MEDS: PIPERACILLIN /TAZOBACTAM 2.25 G in IV D5W 50 ML IV SCH ×3 (05:18→20:24)
[2022-05-16 06:07] LABS: BASOPHILS % (AUTO) 0.1 % (0.0-2.0); HEMATOCRIT 31 % (39-51); HEMOGLOBIN 9.7 g/dL (13.5-17.5); LYMPHOCYTES # (AUTO) 0.4 K/uL (0.8-4.8); LYMPHOCYTES % (AUTO) 2.3 % (20.0-44.0); MEAN CORPUSCULAR HGB CONC 32 g/dl (31.0-36.0); MEAN CORPUSCULAR VOLUME 101 fL (80-96); MONOCYTES # (AUTO) 1.7 K/uL (0.1-1.30); MONOCYTES % (AUTO) 10.2 % (2.0-12.0); NEUTROPHILS # (AUTO) 14.4 K/uL (1.8-8.9); NEUTROPHILS % (AUTO) 87.4 % (43.0-81.0); PLATELET COUNT (AUTO) 195 K/uL (150-450); RED BLOOD CELL COUNT(AUTO) 3.03 MIL/uL (4.5-6.0); WHITE BLOOD COUNT (AUTO) 16.5 K/uL (4.3-11.0)
[2022-05-16 06:30] LABS: ALBUMIN 2.6 g/dL (3.4-5.0); BILIRUBIN,TOTAL 3.8 mg/dL (0.2-1.0); CALCIUM, SERUM 8.5 mg/dL (8.5-10.1); POTASSIUM 4.5 mmol/L (3.5-5.1); TOTAL PROTEIN, SERUM 7.2 g/dL (6.4-8.2)
--- NOTE | 2022-05-16 06:50 | NUR ---
KITCHEN SUPERVISOR CLOSING NOTES PATIENT ASLEEP IN BED, EASY TO AROUSE. ABLE TO VERBALIZE NEEDS. STABLE THROUGHOUT THE SHIFT. ON SUPPLEMENTARY O2 AT 1LPM VIA NASAL CANULA, SATURATING AT 94%. AFEBRILE. ON TELE MONITOR READING SINUS RHYTHM AT 78 BPM. RIGHT ANTECUBITAL IV ACCESS #20G INTACT, PATENT AND FLUSHING. LEFT UPPER ARM AV FISTULA DRESSING C/D/I, THRILLS AND BRUITS PRESENT. PER PATIENT, HE HAS VERY MINIMAL AMOUNT OF PEE. ALL DUE MEDS GIVEN AND NEEDS ATTENDED. SAFETY PRECAUTIONS MAINTAINED. WILL ENDORSE TO NEXT SHIFT FOR ERICKA.
[2022-05-16 07:32] LABS: CREATININE 8.5 mg/dL (0.6-1.3)
[2022-05-16 08:00] VITALS: BP 131/65
[2022-05-16] MEDS: SEVELAMER CARBONATE 800 MG TABLET PO SCH ×3 (08:27→17:45)
[2022-05-16] MEDS: TAMSULOSIN 0.4 MG CAP.SR.24H PO SCH (08:28)
[2022-05-16] MEDS: NIFEdipine XL (30MG) 30 MG TAB PO SCH ×2 (08:28→17:52)
[2022-05-16] MEDS: METOPROLOL TARTRATE 50 MG TABLET PO SCH ×2 (08:28→17:45)
[2022-05-16] MEDS: PANTOPRAZOLE 40 MG VIAL IV SCH (08:29)
[2022-05-16] MEDS: DULOXETINE HCL 30 MG CAPSULE.DR PO SCH ×2 (08:34→17:44)
[2022-05-16] MEDS ORDERED: VANCOMYCIN 1 GM in IV D5W 250ml IV ONE (09:00)
[2022-05-16 12:00] VITALS: BP 113/86
[2022-05-16 16:00] VITALS: BP 136/72
--- NOTE | 2022-05-16 19:46 | NUR ---
MINILAB OPERATOR OPENING NOTES RECEIVED PATIENT LAYING IN BED ASLEEP, DIFFICULT TO AROUSE. BREATHING EVEN AND NON-LABORED ON ROOM AIR. NO PAIN OR DISCOMFORT NOTED. TELE MONITOR CURRENTLY ON STAND BY. AM RN REINSERTED #22G IV ACCESS TO RIGHT FOREARM AND SALINE LOCKED. NO S/S OF INFILTRATION NOTED. HAS LEFT UPPER ARM AV FISTULA, DRESSING C/D/I. WILL UNDERGO HIDA SCAN TOMORROW. SAFETY PRECAUTIONS IN PLACE: BED LOCKED AND IN LOWEST POSITION, SIDE RAILS UP X2, CALL LIGHT WITHIN REACH. WILL CONTINUE POC.
[2022-05-16 20:00] VITALS: BP 90/53
--- NOTE | 2022-05-16 20:54 | NUR ---
HIM SPECIALIST NOTES ABLE TO WAKE UP PATIENT BUT LETHARGIC. PER REPORT, PATIENT SLEPT THROUGHOUT THE DAY AND WHEN HE WOKE UP LATE IN THE AFTERNOON, HE WAS ALTERED AND PULLED OUT HIS IV.
[2022-05-16] MEDS: GABAPENTIN 300 MG CAPSULE PO SCH (21:54)
[2022-05-17] VITALS: BP 109/60
[2022-05-17 04:00] VITALS: BP 104/65
[2022-05-17] MEDS: PIPERACILLIN /TAZOBACTAM 2.25 G in IV D5W 50 ML IV SCH ×3 (04:40→21:25)
--- NOTE | 2022-05-17 06:44 | NUR ---
TIE IN HAND CLOSING NOTES PATIENT LAYING IN BED ASLEEP, EASY TO AROUSE. FULLY ALERT BUT WITH PERIODS OF CONFUSION. NEEDS SOME REORIENTATION TO ROOM AND SBA WHILE WALKING. NO SOB OR NOTED, ON O2 AT 1LPM VIA NASAL CANULA. DENIES ABDOMINAL PAIN, NO C/O OF N/V. AFEBRILE. ON TELE MONITOR READING A-FLUTTER AT 68 BPM. RIGHT FOREARM IV ACCESS #22G INTACT, PATENT AND FLUSHING. ALL DUE MEDS GIVEN AND NEEDS ATTENDED. SAFETY PRECAUTIONS MAINTAINED. WILL ENDORSE TO NEXT SHIFT FOR ERICKA.
[2022-05-17 07:02] LABS: BASOPHILS % (AUTO) 0.2 % (0.0-2.0); EOSINOPHILS % (AUTO) 0.1 % (0.0-6.0); HEMATOCRIT 29 % (39-51); HEMOGLOBIN 9.3 g/dL (13.5-17.5); LYMPHOCYTES # (AUTO) 0.9 K/uL (0.8-4.8); LYMPHOCYTES % (AUTO) 5.1 % (20.0-44.0); MEAN CORPUSCULAR HGB CONC 32 g/dl (31.0-36.0); MEAN CORPUSCULAR VOLUME 102 fL (80-96); MONOCYTES # (AUTO) 1.5 K/uL (0.1-1.30); MONOCYTES % (AUTO) 8.9 % (2.0-12.0); NEUTROPHILS # (AUTO) 14.6 K/uL (1.8-8.9); NEUTROPHILS % (AUTO) 85.7 % (43.0-81.0); PLATELET COUNT (AUTO) 176 K/uL (150-450); RED BLOOD CELL COUNT(AUTO) 2.86 MIL/uL (4.5-6.0)
[2022-05-17 07:39] LABS: ALBUMIN 2.2 g/dL (3.4-5.0); BILIRUBIN,TOTAL 1.7 mg/dL (0.2-1.0); CALCIUM, SERUM 8.5 mg/dL (8.5-10.1); POTASSIUM 4.7 mmol/L (3.5-5.1); TOTAL PROTEIN, SERUM 6.7 g/dL (6.4-8.2)
[2022-05-17 07:41] LABS: CREATININE 8.2 mg/dL (0.6-1.3)
[2022-05-17] MEDS: SEVELAMER CARBONATE 800 MG TABLET PO SCH ×3 (08:00→16:52)
[2022-05-17] MEDS: NIFEdipine XL (30MG) 30 MG TAB PO SCH ×2 (09:00→16:52)
[2022-05-17] MEDS: METOPROLOL TARTRATE 50 MG TABLET PO SCH ×2 (09:00→16:51)
[2022-05-17] MEDS: TAMSULOSIN 0.4 MG CAP.SR.24H PO SCH (09:00)
[2022-05-17] MEDS: DULOXETINE HCL 30 MG CAPSULE.DR PO SCH ×2 (09:00→16:52)
[2022-05-17] MEDS ORDERED: VANCOMYCIN POST DIALYSIS 500MG IV PRN ×2 (16:00)
[2022-05-17] MEDS: PANTOPRAZOLE 40 MG TABLET.DR PO SCH (16:52)
--- NOTE | 2022-05-17 19:30 | NUR ---
MEDICAL SCIENTIFIC LIAISON OPENING NOTE RECEIVED PATIENT LAYING IN BED AWAKE. BREATHING EVEN AND NON-LABORED, ON ROOM AIR. NO PAIN OR DISCOMFORT NOTED. ON TELE MONITOR A FLUTTER. IV ACCESS #22G IV TO RIGHT FOREARM, SALINE LOCKED. NO S/S OF INFILTRATION NOTED. PT HAS LEFT UPPER ARM AV FISTULA, DRESSING C/D/I. SAFETY PRECAUTIONS IN PLACE: BED LOCKED AND IN LOWEST POSITION, SIDE RAILS UP X 2, CALL LIGHT WITHIN REACH. WILL CONTINUE TO MONITOR PT.
[2022-05-17 20:00] VITALS: BP 127/75
[2022-05-17] MEDS: GABAPENTIN 300 MG CAPSULE PO SCH (21:26)
[2022-05-18] VITALS: BP 131/77
[2022-05-18 04:00] VITALS: BP 150/92
[2022-05-18] MEDS: PIPERACILLIN /TAZOBACTAM 2.25 G in IV D5W 50 ML IV SCH ×3 (05:57→21:34)
[2022-05-18 06:44] LABS: ALBUMIN 2.1 g/dL (3.4-5.0); BASOPHILS % (AUTO) 0.2 % (0.0-2.0); BILIRUBIN,TOTAL 1.2 mg/dL (0.2-1.0); CALCIUM, SERUM 8.6 mg/dL (8.5-10.1); CREATININE 6.8 mg/dL (0.6-1.3); EOSINOPHILS % (AUTO) 0.5 % (0.0-6.0); HEMATOCRIT 33 % (39-51); HEMOGLOBIN 10.4 g/dL (13.5-17.5); LYMPHOCYTES # (AUTO) 0.8 K/uL (0.8-4.8); LYMPHOCYTES % (AUTO) 4.7 % (20.0-44.0); MEAN CORPUSCULAR HGB CONC 32 g/dl (31.0-36.0); MEAN CORPUSCULAR VOLUME 102 fL (80-96); MONOCYTES % (AUTO) 6.1 % (2.0-12.0); NEUTROPHILS # (AUTO) 14.7 K/uL (1.8-8.9); NEUTROPHILS % (AUTO) 88.5 % (43.0-81.0); PLATELET COUNT (AUTO) 217 K/uL (150-450); POTASSIUM 4.4 mmol/L (3.5-5.1); RED BLOOD CELL COUNT(AUTO) 3.22 MIL/uL (4.5-6.0); TOTAL PROTEIN, SERUM 6.9 g/dL (6.4-8.2); WHITE BLOOD COUNT (AUTO) 16.6 K/uL (4.3-11.0)
--- NOTE | 2022-05-18 07:00 | NUR ---
A R COLLECTIONS REP CLOSING NOTE LEFT PATIENT SITTING IN BED. PT IS FULLY ALERT, BUT WITH PERIODS OF CONFUSION. NEEDS SOME REORIENTATION. NO SOB OR RESPIRATORY DISTRESS NOTED, ON O2 AT 1LPM VIA NASAL CANULA. DENIES ABDOMINAL PAIN, NO C/O OF N/V. ON TELE MONITOR READING A-FLUTTER. RIGHT FOREARM IV ACCESS #22G INTACT, PATENT. ALL DUE MEDS GIVEN AND NEEDS ATTENDED. SAFETY PRECAUTIONS MAINTAINED. WILL ENDORSE TO NEXT SHIFT NURSE FOR ERICKA.
--- NOTE | 2022-05-18 07:30 | NUR ---
ENVIRONMENTAL QUALITY ANALYST NOTES PT IN BED, ASLEEP, EASY TO AROUSE, ALERT AND VERBALLY RESPONSIVE, DENIES PAIN, NOT IN DISTRESS, CALL LIGHT WITHIN REACH, KEPT WARM AND COMFORTABLE IN BED.
[2022-05-18 08:00] VITALS: BP 121/68
[2022-05-18] MEDS: METOPROLOL TARTRATE 50 MG TABLET PO SCH ×2 (09:00→17:00)
[2022-05-18] MEDS: NIFEdipine XL (30MG) 30 MG TAB PO SCH ×2 (09:00→17:00)
[2022-05-18] MEDS: TAMSULOSIN 0.4 MG CAP.SR.24H PO SCH (09:11)
[2022-05-18] MEDS: DULOXETINE HCL 30 MG CAPSULE.DR PO SCH ×2 (09:11→17:00)
[2022-05-18] MEDS: PANTOPRAZOLE 40 MG TABLET.DR PO SCH (09:11)
[2022-05-18] MEDS: SEVELAMER CARBONATE 800 MG TABLET PO SCH ×3 (09:11→17:30)
[2022-05-18 12:00] VITALS: BP 143/71
--- NOTE | 2022-05-18 12:07 | NUR ---
HOUSEKEEPING DEPARTMENT WORKER NOTES RENVELA PO NOT GIVEN, PT IS NPO.
[2022-05-18 18:11] VITALS: BP 125/68
--- NOTE | 2022-05-18 18:23 | NUR ---
TRANSITIONAL CARE MANAGER NOTES PT IN BED, RESTING, AWAKE, ALERT AND ORIENTED, NO COMPLAINT OF PAIN, NOT IN DISTRESS, COMPLETED HEMODIALYSIS, WITH 1 LITER OUTPUT, TOLERATED WELL, PT FOR LAP EDGAR THIS AFTERNOON BY DR. AYALA, CONSENTS SIGNED BY PT, PT'S DAUGHTER AWARE OF THE PLAN, AWAITING O.R. DIRECTOR OF COMPLIANCE.
--- NOTE | 2022-05-18 19:40 | NUR ---
LIGHTING FIXTURES DECORATOR OPENING NOTE RECEIVED PATIENT LAYING IN BED AWAKE. BREATHING EVEN AND NON-LABORED, ON ROOM AIR. NO PAIN OR DISCOMFORT NOTED. PT ON TELE MONITOR. IV ACCESS #22G IV TO RIGHT FOREARM, SALINE LOCKED. NO S/S OF INFILTRATION NOTED. PT HAS LEFT UPPER ARM AV FISTULA, DRESSING C/D/I. PT IS SCHEDULED FOR LAP CHOLECYSTECTOMY TONIGHT. SAFETY PRECAUTIONS IN PLACE: BED LOCKED AND IN LOWEST POSITION, SIDE RAILS UP X 2, CALL LIGHT WITHIN REACH. WILL CONTINUE TO MONITOR PT.
[2022-05-18 20:39] VITALS: BP 128/72
[2022-05-18] MEDS: GABAPENTIN 300 MG CAPSULE PO SCH (21:34)
--- NOTE | 2022-05-18 22:00 | NUR ---
WIRELESS SALES CONSULTANT NOTE DR ALTMAN CALLED, AND NEW ORDER RECEIVED FOR INR IN AM, NPO AFTER MIDNIGHT, AND FULL LIQUIDS NOW. PT IS OFFERED JUICE, BUT PT REFUSES. DR AYALA CALLED, AND ORDERED A PERCUTANEOUS CHOLECYSTOSTOMY TUBE PLACEMENT FOR TOMORROW.
[2022-05-19 00:15] VITALS: BP 136/83
[2022-05-19] MEDS: METOPROLOL TARTRATE 50 MG TABLET PO SCH ×2 (00:46→16:58)
--- NOTE | 2022-05-19 00:54 | NUR ---
WIRE BENDER HAND NOTE PT IS HAVING UNCONTROLLED A-FIB WITH HR: 134. CHARGE NURSE ASHTYN MADE AWARE. CHARGE NURSE ADVISED TO GIVE PT METOPROLOL. PT WAS SCHEDULED FOR LAP EDGAR YESTERDAY, BUT SURGERY WAS CANCELLED. SO ALL THE MEDS WERE HELD BECAUSE PT WAS NPO. METOPROLOL IS ADMINISTERED TO PT NOW.
[2022-05-19 01:00] VITALS: BP 136/83
[2022-05-19] MEDS: PIPERACILLIN /TAZOBACTAM 2.25 G in IV D5W 50 ML IV SCH ×3 (05:43→21:22)
[2022-05-19 06:37] LABS: BASOPHILS # (AUTO) 0.1 K/uL (0.0-0.2); BASOPHILS % (AUTO) 0.5 % (0.0-2.0); EOSINOPHILS % (AUTO) 1.6 % (0.0-6.0); HEMATOCRIT 32 % (39-51); LYMPHOCYTES # (AUTO) 0.9 K/uL (0.8-4.8); LYMPHOCYTES % (AUTO) 7.1 % (20.0-44.0); MEAN CORPUSCULAR HGB CONC 31 g/dl (31.0-36.0); MEAN CORPUSCULAR VOLUME 102 fL (80-96); MONOCYTES # (AUTO) 1.1 K/uL (0.1-1.30); MONOCYTES % (AUTO) 8.6 % (2.0-12.0); NEUTROPHILS # (AUTO) 10.9 K/uL (1.8-8.9); NEUTROPHILS % (AUTO) 82.2 % (43.0-81.0); PLATELET COUNT (AUTO) 203 K/uL (150-450); RED BLOOD CELL COUNT(AUTO) 3.14 MIL/uL (4.5-6.0); WHITE BLOOD COUNT (AUTO) 13.2 K/uL (4.3-11.0)
--- NOTE | 2022-05-19 06:52 | NUR ---
TRAIN ATTENDANT CLOSING NOTE LEFT PATIENT RESTING IN BED. PT IS FULLY ALERT, BUT WITH PERIODS OF CONFUSION. NO SOB OR RESPIRATORY DISTRESS NOTED, ON O2 AT 1LPM VIA NASAL CANULA. DENIES ABDOMINAL PAIN, NO C/O OF N/V. ON TELE MONITOR READING A-FIB, HR:96. RIGHT FOREARM IV ACCESS #22G INTACT, PATENT. ALL DUE MEDS GIVEN AND NEEDS ATTENDED. SAFETY PRECAUTIONS MAINTAINED. WILL ENDORSE TO NEXT SHIFT NURSE FOR ERICKA.
--- NOTE | 2022-05-19 07:16 | NUR ---
ILLUMINATING ENGINEER NOTE PT HAS BEEN NPO DUE TO PERCUTANEOUS CHOLECYSTOSTOMY TUBE PLACEMENT SCHEDULED FOR TODAY. CONSENT SIGNED BY PT FOR PROCEDURE.
[2022-05-19 07:20] LABS: CALCIUM, SERUM 8.9 mg/dL (8.5-10.1); CREATININE 6.1 mg/dL (0.6-1.3); POTASSIUM 4.6 mmol/L (3.5-5.1); TOTAL PROTEIN, SERUM 7.2 g/dL (6.4-8.2)
[2022-05-19] MEDS ORDERED: DILTIAZEM HCL CD 120 MG PO SCH (09:00)
[2022-05-19] MEDS: PANTOPRAZOLE 40 MG TABLET.DR PO SCH (09:03)
[2022-05-19] MEDS: DULOXETINE HCL 30 MG CAPSULE.DR PO SCH ×2 (09:03→16:58)
[2022-05-19] MEDS: SEVELAMER CARBONATE 800 MG TABLET PO SCH ×3 (09:03→17:02)
[2022-05-19] MEDS: TAMSULOSIN 0.4 MG CAP.SR.24H PO SCH (09:04)
[2022-05-19] MEDS: DILTIAZEM HCL 30 MG TABLET PO SCH (17:02)
--- NOTE | 2022-05-19 19:04 | NUR ---
APARTMENT LEASING AGENT OPENING NOTES: RECEIVED PATIENT AWAKE IN BED, BED IN LOW POSITION CALL LIGHTS WITHIN REACH, NO COMPLAIN OF PAIN AND DISCOMFORT AT THIS TIME, ON O2 INHALATION AT 2LPM SATURATING WELL, PATIENT IS A/OX3 ABLE TO MAKE NEEDS KNOWN, AMBULATORY WITH ASSISTANCE REMIND TO USE CALL LIGHTS WHEN NEEDED ASSISTANCE, PATIENT ON HEMODIALYSIS, NOAH AV FISTULA, PATIENT KEPT CLEAN AND DRY ALL NEEDS MET WILL CONTINUE TO MONITOR.
[2022-05-19 20:00] VITALS: BP 156/96
[2022-05-19 20:52] VITALS: BP 156/96
[2022-05-19] MEDS: GABAPENTIN 300 MG CAPSULE PO SCH (21:22)
[2022-05-20] VITALS: BP 144/81
[2022-05-20] MEDS: DILTIAZEM HCL 30 MG TABLET PO SCH ×4 (00:47→17:14)
[2022-05-20 01:24] VITALS: BP 144/51
[2022-05-20 04:25] VITALS: BP 146/81
[2022-05-20] MEDS: PIPERACILLIN /TAZOBACTAM 2.25 G in IV D5W 50 ML IV SCH ×3 (05:04→21:23)
[2022-05-20 06:24] LABS: BASOPHILS % (AUTO) 0.3 % (0.0-2.0); HEMATOCRIT 29 % (39-51); HEMOGLOBIN 9.3 g/dL (13.5-17.5); LYMPHOCYTES # (AUTO) 0.8 K/uL (0.8-4.8); LYMPHOCYTES % (AUTO) 8.4 % (20.0-44.0); MEAN CORPUSCULAR HGB CONC 33 g/dl (31.0-36.0); MEAN CORPUSCULAR VOLUME 100 fL (80-96); MONOCYTES # (AUTO) 0.9 K/uL (0.1-1.30); MONOCYTES % (AUTO) 9.2 % (2.0-12.0); NEUTROPHILS # (AUTO) 7.8 K/uL (1.8-8.9); NEUTROPHILS % (AUTO) 79.1 % (43.0-81.0); PLATELET COUNT (AUTO) 186 K/uL (150-450); RED BLOOD CELL COUNT(AUTO) 2.84 MIL/uL (4.5-6.0); WHITE BLOOD COUNT (AUTO) 9.8 K/uL (4.3-11.0)
--- NOTE | 2022-05-20 06:40 | NUR ---
RN NOTES: ROUTINE MEDICATION FOR HTN NOT GIVEN PATIENT ON SCHEDULE DIALYSIS AT 8AM
--- NOTE | 2022-05-20 06:50 | NUR ---
E BUSINESS PROJECT MANAGER CLOSING NOTES: PATIENT SLEEP IN BED COMFORTABLY, AROUSABLE TO VERBAL STIMULI, BED IN LOW POSITION CALL LIGHTS WITHIN REACH, NO COMPLAIN OF PAIN AND DISCOMFORT AT THIS TIME ON O2 INHALTION AT 2LPM SATURATING WELL, PATIENT IS AMBULATORY, A/OX3-4 ABLE TO MAKE NEEDS KNON, ON NPO, WITH SCHEDULE HD AT 0800 HD PORT AT [facility] AV FISTULA CLEAN, NO BLEEDING WAS OBSERVED, ON TELE MONITOR- AFIB PATIENT KEPT CLEAN AND DRY ALL NEEDS MET ENDORSE TO INCOMING SHIFT.
--- NOTE | 2022-05-20 07:57 | NUR ---
CIARAN RN OPENING NOTES: RECEIVED PATIENT SLEEP IN BED COMFORTABLY, EASILY ROUSED, A/O X3. ON 2L O2 VIA NC, SATURATING WELL, PATIENT IS AMBULATORY. TELE MONITOR READS A-FIB, HR- 82. NO COMPLAIN OF PAIN AND DISCOMFORT AT THIS TIME. ON NPO, UNDERSTANDS RATIONALE. HD SCHEDULE HD AT 0800; HD PORT AT NOAH AV FISTULA CLEAN AND INTACT. SAFETY MEASURES IN PLACE, CALL LIGHTS AND TABLE WITHIN REACH, WILL CONT WITH PLAN OF CARE DURING SHIFT.
[2022-05-20] MEDS: PANTOPRAZOLE 40 MG TABLET.DR PO SCH (08:38)
[2022-05-20] MEDS: DULOXETINE HCL 30 MG CAPSULE.DR PO SCH ×2 (08:38→17:14)
[2022-05-20] MEDS: TAMSULOSIN 0.4 MG CAP.SR.24H PO SCH (08:38)
[2022-05-20] MEDS: METOPROLOL TARTRATE 50 MG TABLET PO SCH ×2 (08:39→17:15)
[2022-05-20] MEDS: SEVELAMER CARBONATE 800 MG TABLET PO SCH ×3 (08:43→17:09)
[2022-05-20 08:47] VITALS: BP 130/77
[2022-05-20 10:20] LABS: BILIRUBIN,TOTAL 0.9 mg/dL (0.2-1.0); CALCIUM, SERUM 8.4 mg/dL (8.5-10.1); TOTAL PROTEIN, SERUM 6.7 g/dL (6.4-8.2)
[2022-05-20 10:25] LABS: POTASSIUM 4.9 mmol/L (3.5-5.1)
[2022-05-20 10:38] LABS: CREATININE 8.2 mg/dL (0.6-1.3)
--- NOTE | 2022-05-20 12:15 | NUR ---
S/P HD- OUTPUT 2L, PRE HD VITALS- BP- 122/62, HR 88, POST HD VITALS - BP- 151/81, HR- 90
--- NOTE | 2022-05-20 12:45 | NUR ---
PT LEFT FOR PROCEDURE, TRANSPORTED VIA WHEELCHAIR BY MRI STAFF
[2022-05-20] MEDS ORDERED: FLUMAZENIL 0.5 MG VIAL IV PRN (13:30)
[2022-05-20] MEDS ORDERED: NALOXONE PREFILLED SYRINGE 2 MG/2 ML SYRINGE IV PRN (13:30)
[2022-05-20] MEDS ORDERED: FENTANYL PF 250MCG/5ML AMPUL IV PRN (13:30)
[2022-05-20] MEDS ORDERED: MIDAZOLAM HCL 2 MG/2ML VIAL IV PRN (13:30)
--- NOTE | 2022-05-20 14:28 | NUR ---
PT CAME BACK TO UNIT, ESCORTED BY VIDA. PT S/P PERCUTANEOUS ABSCESS DRAINAGE. DRESSING NOTED AT R UPPER QUADRANT, C/D/I. DRAINAGE BAG, DRAINING 50CC DARK GREEN FLUID NOTED. PT RESUMED TO REG DIET PER MD.
[2022-05-20] MEDS: MORPHINE SULFATE INJ 2 MG/ML DISP.SYRIN IV PRN (15:27)
[2022-05-20 16:23] VITALS: BP 164/113
--- NOTE | 2022-05-20 18:49 | NUR ---
DEPUTY HEAD CLOSING NOTES: PT IS RESTING IN BED COMFORTABLY, A/O X3. ON 2L O2 VIA NC, SATURATING WELL, PATIENT IS AMBULATORY. TELE MONITOR READS SR, HR- 73. NO COMPLAIN OF PAIN AND DISCOMFORT AT THIS TIME. S/P HD WITH OUTPUT OF 2L. S/P PERCUTANEOUS ABSCESS DRAINAGE, DRESSING AT R UPPER QUADRANT NOTED, C/D/I. HEMOVAC DRAINED DARK GREEN FLUID = 50 CC. IV ACCESS R FA# 22 SL, PATENT, FLUSHING WELL. HD PORT AT NOAH AV FISTULA CLEAN AND INTACT. KEPT PT CLEAN, DRY CMFORTABLE, DUE MEDS GIVEN.SAFETY MEASURES IN PLACE, CALL LIGHTS AND TABLE WITHIN REACH, WILL CONT WITH PLAN OF CARE DURING SHIFT.
--- NOTE | 2022-05-20 19:50 | NUR ---
BRIQUETTE MACHINE OPERATOR OPENING NOTES: RECEIVED PATIENT AWAKE IN BED, BED IN LOW POSITION, CALL LIGHTS WITHIN REACH, NO COMPLAIN OF PAIN AND DISCOMFORT AT THIS TIME, ON O2 INHALATION AT 2LPM SATURATING WELL, PATIENT IS A/OX4 AMBULATORY ABLE TO MAKE NEEDS KNOWN , ON HEMODIALYSIS TODAY SCHEDULE TTHS AT [facility] AV FISTULA WITH 1LTR OUT, PATIENT IS S/P CHOLECYSTOSTOMY TUBE PLACEMENT AT RIGHT LOWE R ABDOMEN, NO BLEEDING WAS OBSERVED, PATIENT KEPT CLEAN AND DRY ALL NEEDS MET WILL CONTINUE TO MONITOR.
[2022-05-20 20:00] VITALS: BP 146/87
[2022-05-20] MEDS: GABAPENTIN 300 MG CAPSULE PO SCH (21:25)
[2022-05-21] VITALS: BP_SYST 136; BP_SYST 146; BP_DIAS 45; BP_DIAS 87
[2022-05-21] MEDS: DILTIAZEM HCL 30 MG TABLET PO SCH ×2 (00:30→06:00)
[2022-05-21 04:00] VITALS: BP 151/96
[2022-05-21] MEDS: PIPERACILLIN /TAZOBACTAM 2.25 G in IV D5W 50 ML IV SCH (05:06)
--- NOTE | 2022-05-21 06:12 | NUR ---
RN NOTES: CARDIZEM 30MG AT 0600 NOT GIVE PATIENT HAS A SCHEDULE DIALYSIS IN AM
--- NOTE | 2022-05-21 06:22 | NUR ---
RN CLOSING NOTES: PATIENT SLEEP IN BED COMFORTABLY, BED IN LOW POSITION CALL LIGHTS WITHIN REACH, NO COMPLAIN OF PAIN AND DISCOMFORT AT THIS TIME, ON O2 INHALATION AT 2LPM SATURATING WELL, PATIENT IS A/OX4 ABLE AMBULATORY, ABLE TO MAKE NEEDS KNOWN ON TELE MONITOR- SR-68 NO SYMPTOMS WAS OBSERVED, PATIENT HAS A SCHEDULE HD TODAY WITH RIGHT LOWE ABDOMEN DRAINAGE OUTPUT AT 60CC, PATIENT KEPT CLEAN AND DRY ALL NEEDS MET ENDORSE TO INCOMING SHIFT.
[2022-05-21 06:26] LABS: BASOPHILS % (AUTO) 0.6 % (0.0-2.0); EOSINOPHILS % (AUTO) 3.4 % (0.0-6.0); HEMATOCRIT 31 % (39-51); HEMOGLOBIN 9.8 g/dL (13.5-17.5); LYMPHOCYTES # (AUTO) 0.9 K/uL (0.8-4.8); LYMPHOCYTES % (AUTO) 10.3 % (20.0-44.0); MEAN CORPUSCULAR HGB CONC 32 g/dl (31.0-36.0); MEAN CORPUSCULAR VOLUME 101 fL (80-96); MONOCYTES # (AUTO) 0.9 K/uL (0.1-1.30); MONOCYTES % (AUTO) 10.1 % (2.0-12.0); NEUTROPHILS # (AUTO) 6.7 K/uL (1.8-8.9); NEUTROPHILS % (AUTO) 75.6 % (43.0-81.0); PLATELET COUNT (AUTO) 184 K/uL (150-450); RED BLOOD CELL COUNT(AUTO) 3.02 MIL/uL (4.5-6.0); WHITE BLOOD COUNT (AUTO) 8.9 K/uL (4.3-11.0)
[2022-05-21 06:54] LABS: ALBUMIN 2.1 g/dL (3.4-5.0); BILIRUBIN,TOTAL 0.8 mg/dL (0.2-1.0); CALCIUM, SERUM 8.2 mg/dL (8.5-10.1); CREATININE 6.5 mg/dL (0.6-1.3); POTASSIUM 4.8 mmol/L (3.5-5.1); TOTAL PROTEIN, SERUM 6.9 g/dL (6.4-8.2)
--- NOTE | 2022-05-21 07:20 | NUR ---
LACE BURN OUT TENDER OPENING NOTES: RECEIVED PATIENT AWAKE IN BED, AOX4 AND VERBALLY RESPONSIVE , NO COMPLAIN OF PAIN AND DISCOMFORT AT THIS TIME, ON O2 INHALATION AT 2LPM SATURATING WELL , NOAH AV FISTULA FOR DIALYSIS ACCESS , PATIENT IS S/P CHOLECYSTOSTOMY TUBE PLACEMENT AT RIGHT LOWE R ABDOMEN, WITH BLACKISH DRAINAGE , IV ACCESS RFA #22 SL . BED IN LOWEST POSITION AND SR UP X 2 . NO BLEEDING WAS OBSERVED, PATIENT KEPT CLEAN AND DRY ALL NEEDS MET WILL CONTINUE TO MONITOR.
[2022-05-21 08:00] VITALS: BP 164/95
[2022-05-21] MEDS: PANTOPRAZOLE 40 MG TABLET.DR PO SCH (08:47)
[2022-05-21] MEDS: METOPROLOL TARTRATE 50 MG TABLET PO SCH (08:47)
[2022-05-21] MEDS: SEVELAMER CARBONATE 800 MG TABLET PO SCH (08:47)
[2022-05-21] MEDS: DULOXETINE HCL 30 MG CAPSULE.DR PO SCH (08:48)
[2022-05-21] MEDS: TAMSULOSIN 0.4 MG CAP.SR.24H PO SCH (08:59)
[2022-05-21] MEDS ORDERED: DILT360C28 PO (09:23)
[2022-05-21] MEDS ORDERED: METO50TA16 PO (09:23)
[2022-05-21] MEDS ORDERED: AMOX-430 PO (09:24)
[2022-05-21] MEDS ORDERED: DILTIAZEM HCL CD 240 MG PO SCH (10:00)
[2022-05-21 10:26] VITALS: BP 160/72
--- NOTE | 2022-05-21 13:45 | NUR ---
UPHOLSTERER ASSEMBLY LINE NOTES: PATIENT IS MEDICALLY STABLE AND WITH ORDER FOR DISCHARGE TO HOME , PT LIVES WITH FAMILY AT HOME , PATIENT AWARE AND DISCHARGE PAPERS WERE PREPARED , DISCHARGE INSTRUCTIONS PROVIDED REGARDING MEDICATIONS , ABDOMINAL DRAINAGE CARE INSTRUCTIONS PROVIDED , PCP FOLLOW UP AND WHEN TO CALL 911 IN CASE OF EMERGENCY . PATIENT ABLE TO UNDERSTAND INSTRUCTIONS PROVIDED , ALL BELONGINGS WAS BROUGHT BY PATIENT AND SIGNED , IV ACCESS AND ID BAND REMOVED , SENIOR DATABASE ADMINISTRATOR REMOVED , PATIENT SEROLOGIST BY FAMILY VIA PRIVATE CAR , ACCOMPANIED TO THE LOBBY VIA WHEEL CHAIR AND ASSISTED TO THE CAR , PATIENT LEFT WITH NO C/O OF PAIN AND DISCOMFORT AND PATIENT LEFT IN A STABLE CONDITION
[2022-05-21] MEDS ORDERED: METOPROLOL TARTRATE 50 MG TABLET PO SCH (17:00)
== END 2022-05-21 14:53 | disposition home health service (06) | DRG 444 ==
LOC: ER 11:16 → TELE 20:41
PROVIDERS: ADMIT Internal Medicine; ATTEND Internal Medicine
PROC: 5A1D70Z Performance of Urinary Filtration, Intermittent, Less than 6 Hours Per Day (ICD-10-PCS; principal; 2022-05-15)
PROC: 0F9430Z Drainage of Gallbladder with Drainage Device, Percutaneous Approach (ICD-10-PCS; 2022-05-20)
DX: K80.01 Calculus of gallbladder with acute cholecystitis with obstruction (principal); K85.10 Biliary acute pancreatitis without necrosis or infection; N18.6 End stage renal disease; I13.2 Hypertensive heart and chronic kidney disease with heart failure and with stage 5 chronic kidney disease, or end stage renal disease; I50.22 Chronic systolic (congestive) heart failure; I42.9 Cardiomyopathy, unspecified; I48.92 Unspecified atrial flutter; Z99.2 Dependence on renal dialysis; I48.0 Paroxysmal atrial fibrillation; Z20.822 Contact with and (suspected) exposure to COVID-19; Z66 Do not resuscitate; Z95.3 Presence of xenogenic heart valve; I25.10 Atherosclerotic heart disease of native coronary artery without angina pectoris; E78.5 Hyperlipidemia, unspecified; J44.9 Chronic obstructive pulmonary disease, unspecified; Z79.84 Long term (current) use of oral hypoglycemic drugs; Z79.01 Long term (current) use of anticoagulants; Z79.899 Other long term (current) drug therapy; E11.22 Type 2 diabetes mellitus with diabetic chronic kidney disease; D53.9 Nutritional anemia, unspecified; M89.8X9 Other specified disorders of bone, unspecified site; N28.1 Cyst of kidney, acquired; K76.89 Other specified diseases of liver; D72.829 Elevated white blood cell count, unspecified; I05.9 Rheumatic mitral valve disease, unspecified
CPT/HCPCS: 36415; 71045-TC; 71250-TC; 74181-TC; 75989; 75989-TC; 76705-TC; 78226; 80048-TC; 80053-TC; 80076-TC; 80202-TC; 82962-TC; 83690-TC; 83735-TC; 83880; 84484-TC; 85025-TC; 85610-TC; 86706; 87081-TC; 87340; 90935-TC; 92526; 92611-TC; 94799-TC; 97116-TC; 97530-TC; A9537; C9113; C9803; G0378; G0480; J1650; J2250; J2270; J2405; J2543; J3010; J3370; J7030; J7040; J7060

== ENCOUNTER 2022-06-06 07:19 | Inpatient (IN) | payer OTHER ==
[~2022-06-06] VITALS: Ht 167.6 cm; Wt 76.2 kg
[~2022-06-06 07:19] MED LIST changes: +AMOX-430 PO; +DILT360C28 PO; -NIFE-35 PO
[2022-06-06 08:27] LABS: BASOPHILS # (AUTO) 0.1 K/uL (0.0-0.2); BASOPHILS % (AUTO) 0.7 % (0.0-2.0); EOSINOPHILS % (AUTO) 0.1 % (0.0-6.0); HEMATOCRIT 37 % (39-51); HEMOGLOBIN 11.5 g/dL (13.5-17.5); LYMPHOCYTES % (AUTO) 6.8 % (20.0-44.0); MEAN CORPUSCULAR HGB CONC 31 g/dl (31.0-36.0); MEAN CORPUSCULAR VOLUME 101 fL (80-96); MONOCYTES # (AUTO) 0.8 K/uL (0.1-1.30); MONOCYTES % (AUTO) 5.6 % (2.0-12.0); NEUTROPHILS % (AUTO) 86.8 % (43.0-81.0); PLATELET COUNT (AUTO) 159 K/uL (150-450); RED BLOOD CELL COUNT(AUTO) 3.72 MIL/uL (4.5-6.0)
[2022-06-06 08:55] LABS: CALCIUM, SERUM 9.4 mg/dL (8.5-10.1); CARBON DIOXIDE 22 mmol/L (21-32); CHLORIDE 94 mmol/L (98-107); CREATININE 6.5 mg/dL (0.6-1.3); GLUCOSE 108 mg/dL (74-106); SODIUM SERUM 133 mmol/L (136-145); UREA NITROGEN, BLOOD 48 mg/dL (7-18)
[2022-06-06 08:58] LABS: ALANINE AMINOTRANSFERASE 347 U/L (12-78); ALBUMIN 3.1 g/dL (3.4-5.0); ALKALINE PHOSPHATASE 145 U/L (46-116); ASPARTATE AMINOTRANSFERASE 351 U/L (15-37); BILIRUBIN,DIRECT 0.4 mg/dL (0.0-0.2); BILIRUBIN,TOTAL 1.5 mg/dL (0.2-1.0); TOTAL PROTEIN, SERUM 8.9 g/dL (6.4-8.2)
[2022-06-06] MEDS ORDERED: PIPERACILLIN /TAZOBACTAM 3.375 G in IV D5W 50 ML IV ONE (09:00)
[2022-06-06] MEDS ORDERED: SODIUM POLYSTYRENE SULF. PWD 15 GM UDC PO ONE (09:00)
[2022-06-06] MEDS ORDERED: VANCOMYCIN 1 GM in IV D5W 250 ML IV ONE (09:00)
[2022-06-06] MEDS ORDERED: SODIUM POLYSTYRENE SULFONATE 15 G/60 ML BOTTLE ONE (09:04)
[2022-06-06 09:56] LABS: POTASSIUM 6.7 mmol/L (3.5-5.1)
[2022-06-06 10:17] LABS: BILIRUBIN,URINE 1+ (NEGATIVE); COLOR,URINE DARK YELLOW (YELLOW); LEUKOCYTE ESTERASE ,URINE NEGATIVE (NEGATIVE); NITRITE, URINE NEGATIVE (NEGATIVE); PROTEIN,URINE 3+ mg/dl (NEGATIVE); UGLUCOSE 1+ mg/dL (NEGATIVE); UROBILINOGEN,URINE 0.2 EU/dL (0.2)
[2022-06-06 10:21] LABS: BACTERIA,URINE None seen /HPF (None Seen); RBC,URINE 21-50 /HPF (0-2); SQUAMOUS EPITHELIAL CELL,UR Few /HPF (None Seen)
[2022-06-06 12:55] VITALS: BP 153/110
[2022-06-06] MEDS: ACETAMINOPHEN 325 MG TABLET PO PRN (14:15)
[2022-06-06] MEDS: HYDROCODONE/APAP 5/325MG TABLET PO PRN (15:22)
[2022-06-07 01:53] VITALS: BP 155/90
[2022-06-07 08:00] VITALS: BP 156/108
[2022-06-07] MEDS: SEVELAMER CARBONATE 800 MG TABLET PO SCH ×3 (09:30→19:03)
[2022-06-07] MEDS: TAMSULOSIN 0.4 MG CAP.SR.24H PO SCH (09:30)
[2022-06-07] MEDS ORDERED: glipiZIDE 5 MG TABLET PO SCH (09:30)
[2022-06-07] MEDS: METOPROLOL TARTRATE 50 MG TABLET PO SCH ×2 (09:30→19:04)
[2022-06-07] MEDS ORDERED: MORPHINE SULFATE INJ 4 MG/ML DISP.SYRIN IV STA (09:33)
[2022-06-07] MEDS: DILTIAZEM HCL CD 120 MG PO SCH (10:00)
[2022-06-07] MEDS: HYDROCODONE/APAP 5/325MG TABLET PO PRN ×2 (11:36→15:51)
[2022-06-07 11:48] LABS: BASOPHILS % (AUTO) 0.1 % (0.0-2.0); EOSINOPHILS % (AUTO) 0.1 % (0.0-6.0); HEMATOCRIT 35 % (39-51); HEMOGLOBIN 10.8 g/dL (13.5-17.5); LYMPHOCYTES # (AUTO) 0.9 K/uL (0.8-4.8); LYMPHOCYTES % (AUTO) 7.5 % (20.0-44.0); MEAN CORPUSCULAR HGB CONC 31 g/dl (31.0-36.0); MEAN CORPUSCULAR VOLUME 99 fL (80-96); MONOCYTES # (AUTO) 0.9 K/uL (0.1-1.30); MONOCYTES % (AUTO) 7.2 % (2.0-12.0); NEUTROPHILS # (AUTO) 10.4 K/uL (1.8-8.9); NEUTROPHILS % (AUTO) 85.1 % (43.0-81.0); PLATELET COUNT (AUTO) 159 K/uL (150-450); WHITE BLOOD COUNT (AUTO) 12.2 K/uL (4.3-11.0)
[2022-06-07 11:58] LABS: CALCIUM, SERUM 8.5 mg/dL (8.5-10.1); CREATININE 6.2 mg/dL (0.6-1.3); POTASSIUM 4.7 mmol/L (3.5-5.1)
[2022-06-07 12:00] VITALS: BP 134/104
[2022-06-07 16:00] VITALS: BP 167/77
[2022-06-07] MEDS ORDERED: DEXTROSE 50%-WATER 50 ML DISP.SYRIN IV PRN (17:00)
[2022-06-07] MEDS ORDERED: MORPHINE SULFATE INJ 4 MG/ML DISP.SYRIN IV PRN (17:30)
[2022-06-07] MEDS: ATORVASTATIN 40 MG TABLET PO SCH (19:03)
[2022-06-07] MEDS: DULOXETINE HCL 30 MG CAPSULE.DR PO SCH (19:03)
[2022-06-07] MEDS: BLOOD SUGAR DIAGNOSTIC 1 EACH STRIP IN SCH ×2 (19:09→21:54)
[2022-06-07 20:00] VITALS: BP 150/106
[2022-06-07] MEDS: GABAPENTIN 300 MG CAPSULE PO SCH (21:16)
[2022-06-08] VITALS (7 sets, daily range): BP systolic 129–158; BP diastolic 83–121
[2022-06-08 06:01] LABS: EOSINOPHILS % (AUTO) 3.8 % (0.0-6.0); HEMATOCRIT 38 % (39-51); HEMOGLOBIN 11.9 g/dL (13.5-17.5); LYMPHOCYTES % (AUTO) 7.7 % (20.0-44.0); MEAN CORPUSCULAR HGB CONC 32 g/dl (31.0-36.0); MEAN CORPUSCULAR VOLUME 100 fL (80-96); MONOCYTES % (AUTO) 7.7 % (2.0-12.0); NEUTROPHILS # (AUTO) 10.1 K/uL (1.8-8.9); NEUTROPHILS % (AUTO) 80.8 % (43.0-81.0); PLATELET COUNT (AUTO) 146 K/uL (150-450); RED BLOOD CELL COUNT(AUTO) 3.76 MIL/uL (4.5-6.0); WHITE BLOOD COUNT (AUTO) 12.5 K/uL (4.3-11.0)
[2022-06-08 06:20] LABS: ALBUMIN 2.9 g/dL (3.4-5.0); BILIRUBIN,TOTAL 1.2 mg/dL (0.2-1.0); CALCIUM, SERUM 9.1 mg/dL (8.5-10.1); POTASSIUM 5.2 mmol/L (3.5-5.1); TOTAL PROTEIN, SERUM 7.8 g/dL (6.4-8.2)
[2022-06-08] MEDS: BLOOD SUGAR DIAGNOSTIC 1 EACH STRIP IN SCH ×4 (06:35→21:08)
[2022-06-08 06:52] LABS: CREATININE 7.5 mg/dL (0.6-1.3)
[2022-06-08] MEDS: SEVELAMER CARBONATE 800 MG TABLET PO SCH ×3 (08:27→17:06)
[2022-06-08] MEDS: TAMSULOSIN 0.4 MG CAP.SR.24H PO SCH (08:29)
[2022-06-08] MEDS: DILTIAZEM HCL CD 120 MG PO SCH (08:29)
[2022-06-08] MEDS: DULOXETINE HCL 30 MG CAPSULE.DR PO SCH ×2 (08:29→17:06)
[2022-06-08] MEDS: PANTOPRAZOLE 40 MG TABLET.DR PO SCH (08:29)
[2022-06-08] MEDS: METOPROLOL TARTRATE 50 MG TABLET PO SCH ×2 (08:31→21:07)
[2022-06-08] MEDS: MORPHINE SULFATE INJ 2 MG/ML DISP.SYRIN IV PRN (09:22)
[2022-06-08] MEDS: CEFTRIAXONE 1 G in IV D5W 50 ML IV SCH (09:37)
[2022-06-08] MEDS: INSULIN REGULAR, HUMAN 100 UNIT/ML 3 ML VIAL SQ PRN ×2 (11:41→17:08)
[2022-06-08] MEDS: ATORVASTATIN 40 MG TABLET PO SCH (17:06)
[2022-06-08] MEDS: GABAPENTIN 300 MG CAPSULE PO SCH (21:08)
[2022-06-09] VITALS (34 sets, daily range): BP systolic 59–149; BP diastolic 35–84
[2022-06-09 06:29] LABS: BASOPHILS # (AUTO) 0.1 K/uL (0.0-0.2); BASOPHILS % (AUTO) 0.7 % (0.0-2.0); EOSINOPHILS % (AUTO) 3.7 % (0.0-6.0); HEMATOCRIT 34 % (39-51); HEMOGLOBIN 10.8 g/dL (13.5-17.5); LYMPHOCYTES # (AUTO) 0.8 K/uL (0.8-4.8); LYMPHOCYTES % (AUTO) 11.3 % (20.0-44.0); MEAN CORPUSCULAR HGB CONC 32 g/dl (31.0-36.0); MEAN CORPUSCULAR VOLUME 99 fL (80-96); MONOCYTES # (AUTO) 0.8 K/uL (0.1-1.30); NEUTROPHILS # (AUTO) 5.5 K/uL (1.8-8.9); NEUTROPHILS % (AUTO) 73.3 % (43.0-81.0); PLATELET COUNT (AUTO) 134 K/uL (150-450); RED BLOOD CELL COUNT(AUTO) 3.39 MIL/uL (4.5-6.0); WHITE BLOOD COUNT (AUTO) 7.5 K/uL (4.3-11.0)
[2022-06-09] MEDS: BLOOD SUGAR DIAGNOSTIC 1 EACH STRIP IN SCH ×4 (06:40→21:30)
[2022-06-09 07:22] LABS: ALBUMIN 2.4 g/dL (3.4-5.0); BILIRUBIN,TOTAL 0.8 mg/dL (0.2-1.0); CALCIUM, SERUM 8.6 mg/dL (8.5-10.1); POTASSIUM 4.1 mmol/L (3.5-5.1); TOTAL PROTEIN, SERUM 6.7 g/dL (6.4-8.2)
[2022-06-09] MEDS: DILTIAZEM HCL CD 120 MG PO SCH (08:20)
[2022-06-09] MEDS: SEVELAMER CARBONATE 800 MG TABLET PO SCH ×3 (08:20→17:17)
[2022-06-09] MEDS: TAMSULOSIN 0.4 MG CAP.SR.24H PO SCH (08:20)
[2022-06-09] MEDS: ACETAMINOPHEN 325 MG TABLET PO PRN (08:21)
[2022-06-09] MEDS: PANTOPRAZOLE 40 MG TABLET.DR PO SCH (08:21)
[2022-06-09] MEDS: DULOXETINE HCL 30 MG CAPSULE.DR PO SCH ×2 (08:21→17:00)
[2022-06-09] MEDS: METOPROLOL TARTRATE 50 MG TABLET PO SCH (08:21)
[2022-06-09] MEDS: MORPHINE SULFATE INJ 2 MG/ML DISP.SYRIN IV PRN ×2 (10:13→21:30)
[2022-06-09] MEDS ORDERED: LIDOCAINE 1% INJ 50 ML MDV IJ ONE (10:47)
[2022-06-09] MEDS ORDERED: BUPIVACAINE MPF 0.5% W/EPI INJ 30 ML VIAL ONE (10:47)
[2022-06-09] MEDS ORDERED: FENTANYL PF 250MCG/5ML AMPUL ONE (11:02)
[2022-06-09] MEDS ORDERED: HYDROMORPHONE INJ 2 MG/ML DISP.SYRIN ONE (11:02)
[2022-06-09] MEDS ORDERED: FAMOTIDINE/PF INJ 20 MG/2 ML VIAL IV ONE (11:03)
[2022-06-09] MEDS ORDERED: GLYCOPYRROLATE 0.2 MG/ML VIAL ONE (11:55)
[2022-06-09] MEDS ORDERED: CELLULOSE,OXIDIZED 1 EACH EACH MC ONE (13:10)
[2022-06-09] MEDS ORDERED: BACITRACIN ZINC OINT PACKET 1 EA PACKET TP ONE (13:31)
[2022-06-09] MEDS ORDERED: DEXTROSE 50%-WATER 50 ML DISP.SYRIN ONE (14:13)
[2022-06-09] MEDS ORDERED: ATROPINE SULFATE 1 MG/10 ML DISP.SYRIN ONE ×2 (14:20→14:43)
[2022-06-09] MEDS: DOPamine 400 MG in IV D5W 250 ML IV PRN ×2 (15:04→21:54)
[2022-06-09 15:18] LABS: ABG BASE EXCESS -2.3 mmol/L; ABG OXYGEN SATURATION 84.2 % (92.0-98.5); ABG PCO2 49.1 mmHg (35.0-45.0); ABG PH 7.312 (7.350-7.450); ABG PO2 57.8 mmHg (75.0-100.0); AaDO2 98.4 mmHg; MetHb 0.3 % (0.0-1.5); O2Hb 83.1 % (94.0-97.0); SITE, ABG Right Brachial
[2022-06-09] MEDS: CEFTRIAXONE 1 G in IV D5W 50 ML IV SCH (15:27)
[2022-06-09] MEDS ORDERED: HYDROMORPHONE INJ 2 MG/ML DISP.SYRIN IV PRN (16:00)
[2022-06-09] MEDS ORDERED: ONDANSETRON HCL/PF 4 MG/2 ML VIAL IVP PRN (16:00)
[2022-06-09] MEDS: IV LR 1000 ML 1,000 ML IV PRN (16:34)
[2022-06-09] MEDS: METRONIDAZOLE 500MG/ NS 100ML 500 MG in PREMIX 1 EA IV SCH ×2 (17:07→23:54)
[2022-06-09] MEDS: ATORVASTATIN 40 MG TABLET PO SCH (17:16)
[2022-06-09] MEDS ORDERED: ANCEF 1 GM/50 ML D5W IV SCH ×2 (20:00)
[2022-06-09] MEDS: GABAPENTIN 300 MG CAPSULE PO SCH (21:30)
[2022-06-09] MEDS: INSULIN REGULAR, HUMAN 100 UNIT/ML 3 ML VIAL SQ PRN (21:40)
[2022-06-10] VITALS (99 sets, daily range): BP systolic 71–182; BP diastolic 28–109
[2022-06-10] MEDS: IV LR 1000 ML 1,000 ML IV PRN ×2 (02:21→13:54)
[2022-06-10] MEDS ORDERED: DOPamine 400MG/D5W 250ML RTU 250 ML ONE (04:12)
[2022-06-10 04:20] LABS: BASOPHILS % (AUTO) 0.1 % (0.0-2.0); EOSINOPHILS % (AUTO) 0.1 % (0.0-6.0); HEMATOCRIT 35 % (39-51); HEMOGLOBIN 10.8 g/dL (13.5-17.5); LYMPHOCYTES # (AUTO) 0.2 K/uL (0.8-4.8); LYMPHOCYTES % (AUTO) 1.3 % (20.0-44.0); MEAN CORPUSCULAR HGB CONC 31 g/dl (31.0-36.0); MEAN CORPUSCULAR VOLUME 102 fL (80-96); MONOCYTES # (AUTO) 0.5 K/uL (0.1-1.30); MONOCYTES % (AUTO) 2.9 % (2.0-12.0); NEUTROPHILS # (AUTO) 16.6 K/uL (1.8-8.9); NEUTROPHILS % (AUTO) 95.6 % (43.0-81.0); PLATELET COUNT (AUTO) 109 K/uL (150-450); RED BLOOD CELL COUNT(AUTO) 3.44 MIL/uL (4.5-6.0); WHITE BLOOD COUNT (AUTO) 17.4 K/uL (4.3-11.0)
[2022-06-10] MEDS: DOPamine 400 MG in IV D5W 250 ML IV PRN ×3 (04:21→15:22)
[2022-06-10 04:36] LABS: ALBUMIN 2.2 g/dL (3.4-5.0); BILIRUBIN,TOTAL 0.7 mg/dL (0.2-1.0); CALCIUM, SERUM 8.2 mg/dL (8.5-10.1); CREATININE 6.5 mg/dL (0.6-1.3); MAGNESIUM 2.1 mg/dL (1.8-2.4); POTASSIUM 5.5 mmol/L (3.5-5.1); TOTAL PROTEIN, SERUM 6.6 g/dL (6.4-8.2)
[2022-06-10] MEDS ORDERED: PIPERACILLIN /TAZOBACTAM 2.25 G in IV D5W 50 ML IV SCH (08:30)
[2022-06-10] MEDS ORDERED: IV NS 0.9% 250 ML IV ONE ×2 (08:30→09:00)
[2022-06-10] MEDS: SEVELAMER CARBONATE 800 MG TABLET PO SCH ×3 (09:05→17:29)
[2022-06-10] MEDS: PANTOPRAZOLE 40 MG TABLET.DR PO SCH (09:05)
[2022-06-10] MEDS: TAMSULOSIN 0.4 MG CAP.SR.24H PO SCH (09:06)
[2022-06-10] MEDS: DULOXETINE HCL 30 MG CAPSULE.DR PO SCH ×2 (09:06→17:29)
[2022-06-10] MEDS: BLOOD SUGAR DIAGNOSTIC 1 EACH STRIP IN SCH ×4 (09:06→23:10)
[2022-06-10] MEDS: INSULIN REGULAR, HUMAN 100 UNIT/ML 3 ML VIAL SQ PRN ×4 (09:13→23:19)
[2022-06-10] MEDS ORDERED: VANCOMYCIN 1 GM in IV D5W 250ml IV ONE (10:00)
[2022-06-10] MEDS ORDERED: ANCEF 1 GM/50 ML D5W IV SCH ×2 (11:00)
[2022-06-10] MEDS: PIPERACILLIN /TAZOBACTAM 2.25 G in IV D5W 50 ML IV SCH ×2 (12:00→21:00)
[2022-06-10] MEDS: MORPHINE SULFATE INJ 2 MG/ML DISP.SYRIN IV PRN (13:54)
[2022-06-10] MEDS: ATORVASTATIN 40 MG TABLET PO SCH (17:29)
[2022-06-11] VITALS (48 sets, daily range): BP systolic 98–164; BP diastolic 47–92
[2022-06-11] MEDS: PIPERACILLIN /TAZOBACTAM 2.25 G in IV D5W 50 ML IV SCH ×3 (04:59→21:44)
[2022-06-11 05:33] LABS: EOSINOPHILS % (AUTO) 0.1 % (0.0-6.0); HEMATOCRIT 33 % (39-51); HEMOGLOBIN 10.3 g/dL (13.5-17.5); LYMPHOCYTES # (AUTO) 0.9 K/uL (0.8-4.8); LYMPHOCYTES % (AUTO) 6.3 % (20.0-44.0); MEAN CORPUSCULAR HGB CONC 31 g/dl (31.0-36.0); MEAN CORPUSCULAR VOLUME 101 fL (80-96); MONOCYTES # (AUTO) 1.1 K/uL (0.1-1.30); MONOCYTES % (AUTO) 7.4 % (2.0-12.0); NEUTROPHILS # (AUTO) 12.5 K/uL (1.8-8.9); NEUTROPHILS % (AUTO) 86.2 % (43.0-81.0); PLATELET COUNT (AUTO) 95 K/uL (150-450); RED BLOOD CELL COUNT(AUTO) 3.26 MIL/uL (4.5-6.0); WHITE BLOOD COUNT (AUTO) 14.5 K/uL (4.3-11.0)
[2022-06-11 05:50] LABS: CALCIUM, SERUM 8.7 mg/dL (8.5-10.1); CREATININE 6.1 mg/dL (0.6-1.3); POTASSIUM 4.5 mmol/L (3.5-5.1)
[2022-06-11 05:53] LABS: ALBUMIN 2.3 g/dL (3.4-5.0); BILIRUBIN,TOTAL 0.6 mg/dL (0.2-1.0); MAGNESIUM 2.1 mg/dL (1.8-2.4); PHOSPHORUS 7.9 mg/dL (2.5-4.9); TOTAL PROTEIN, SERUM 6.5 g/dL (6.4-8.2)
[2022-06-11] MEDS: PANTOPRAZOLE 40 MG TABLET.DR PO SCH (08:10)
[2022-06-11] MEDS: INSULIN REGULAR, HUMAN 100 UNIT/ML 3 ML VIAL SQ PRN ×3 (08:18→17:56)
[2022-06-11] MEDS: BLOOD SUGAR DIAGNOSTIC 1 EACH STRIP IN SCH ×4 (08:20→22:20)
[2022-06-11] MEDS: DULOXETINE HCL 30 MG CAPSULE.DR PO SCH ×2 (08:34→17:00)
[2022-06-11] MEDS: SEVELAMER CARBONATE 800 MG TABLET PO SCH ×3 (08:34→18:00)
[2022-06-11] MEDS: TAMSULOSIN 0.4 MG CAP.SR.24H PO SCH (08:35)
[2022-06-11 11:32] LABS: BASOPHILS % (MANUAL) 0 % (0.0-2.0); EOSINOPHILS % (MANUAL) 0 % (0-4); LYMPHOCYTES % (MANUAL) 4 % (16-48); MONOCYTES % (MANUAL) 9 % (0-11.0); NEUTROPHILS % (MANUAL) 87 (42-76)
[2022-06-11] MEDS: OLANZAPINE 10 MG VIAL IM PRN (16:13)
[2022-06-11] MEDS: ATORVASTATIN 40 MG TABLET PO SCH (18:00)
[2022-06-12] VITALS: BP 126/83
[2022-06-12 04:00] VITALS: BP 130/71
[2022-06-12] MEDS: PIPERACILLIN /TAZOBACTAM 2.25 G in IV D5W 50 ML IV SCH ×3 (04:52→21:21)
[2022-06-12 07:05] LABS: ALBUMIN 2.3 g/dL (3.4-5.0); BILIRUBIN,TOTAL 0.8 mg/dL (0.2-1.0); CALCIUM, SERUM 8.8 mg/dL (8.5-10.1); CREATININE 6.3 mg/dL (0.6-1.3); POTASSIUM 4.5 mmol/L (3.5-5.1); TOTAL PROTEIN, SERUM 6.4 g/dL (6.4-8.2)
[2022-06-12] MEDS: BLOOD SUGAR DIAGNOSTIC 1 EACH STRIP IN SCH ×4 (07:30→21:47)
[2022-06-12 08:00] VITALS: BP 180/94
[2022-06-12] MEDS: DULOXETINE HCL 30 MG CAPSULE.DR PO SCH ×2 (08:11→17:00)
[2022-06-12] MEDS: PANTOPRAZOLE 40 MG TABLET.DR PO SCH (08:11)
[2022-06-12] MEDS: SEVELAMER CARBONATE 800 MG TABLET PO SCH ×3 (08:11→17:47)
[2022-06-12] MEDS: TAMSULOSIN 0.4 MG CAP.SR.24H PO SCH (08:12)
[2022-06-12 08:44] LABS: BASOPHILS % (AUTO) 0.1 % (0.0-2.0); EOSINOPHILS % (AUTO) 1.6 % (0.0-6.0); HEMATOCRIT 35 % (39-51); HEMOGLOBIN 10.5 g/dL (13.5-17.5); LYMPHOCYTES % (AUTO) 8.5 % (20.0-44.0); MEAN CORPUSCULAR HGB CONC 30 g/dl (31.0-36.0); MEAN CORPUSCULAR VOLUME 106 fL (80-96); MONOCYTES # (AUTO) 0.9 K/uL (0.1-1.30); MONOCYTES % (AUTO) 7.2 % (2.0-12.0); NEUTROPHILS # (AUTO) 10.2 K/uL (1.8-8.9); NEUTROPHILS % (AUTO) 82.6 % (43.0-81.0); PLATELET COUNT (AUTO) 72 K/uL (150-450); WHITE BLOOD COUNT (AUTO) 12.3 K/uL (4.3-11.0)
[2022-06-12] MEDS: METOPROLOL TARTRATE 50 MG TABLET PO SCH ×2 (09:56→21:24)
[2022-06-12] MEDS: MORPHINE SULFATE INJ 2 MG/ML DISP.SYRIN IV PRN ×2 (09:57→14:02)
[2022-06-12 12:00] VITALS: BP 124/76
[2022-06-12] MEDS: OLANZAPINE 10 MG VIAL IM PRN (12:03)
[2022-06-12 12:30] LABS: BASOPHILS % (MANUAL) 0 % (0.0-2.0); EOSINOPHILS % (MANUAL) 2 % (0-4); LYMPHOCYTES % (MANUAL) 14 % (16-48); MONOCYTES % (MANUAL) 7 % (0-11.0); NEUTROPHILS % (MANUAL) 77 (42-76)
[2022-06-12 16:00] VITALS: BP 125/96
[2022-06-12] MEDS: ATORVASTATIN 40 MG TABLET PO SCH (17:47)
[2022-06-12] MEDS ORDERED: IOHEXOL-350 100 ML VIAL IV ONE (18:37)
[2022-06-12] MEDS ORDERED: METOPROLOL TARTRATE INJ 5 MG/5 ML AMPUL IVP PRN (19:30)
[2022-06-12 20:00] VITALS: BP 141/70
[2022-06-13] VITALS: BP 145/89
[2022-06-13 04:00] VITALS: BP 143/94
[2022-06-13] MEDS: PIPERACILLIN /TAZOBACTAM 2.25 G in IV D5W 50 ML IV SCH ×3 (04:19→22:16)
[2022-06-13] MEDS: BLOOD SUGAR DIAGNOSTIC 1 EACH STRIP IN SCH ×4 (06:33→22:14)
[2022-06-13 06:35] LABS: BASOPHILS % (AUTO) 0.3 % (0.0-2.0); EOSINOPHILS % (AUTO) 3.6 % (0.0-6.0); HEMATOCRIT 27 % (39-51); HEMOGLOBIN 8.7 g/dL (13.5-17.5); LYMPHOCYTES # (AUTO) 1.2 K/uL (0.8-4.8); LYMPHOCYTES % (AUTO) 10.5 % (20.0-44.0); MEAN CORPUSCULAR HGB CONC 32 g/dl (31.0-36.0); MEAN CORPUSCULAR VOLUME 100 fL (80-96); MONOCYTES # (AUTO) 0.8 K/uL (0.1-1.30); MONOCYTES % (AUTO) 7.1 % (2.0-12.0); NEUTROPHILS # (AUTO) 9.1 K/uL (1.8-8.9); NEUTROPHILS % (AUTO) 78.5 % (43.0-81.0); PLATELET COUNT (AUTO) 76 K/uL (150-450); WHITE BLOOD COUNT (AUTO) 11.5 K/uL (4.3-11.0)
[2022-06-13 07:02] LABS: ALBUMIN 2.2 g/dL (3.4-5.0); BILIRUBIN,TOTAL 0.9 mg/dL (0.2-1.0); CALCIUM, SERUM 8.3 mg/dL (8.5-10.1); CREATININE 6.4 mg/dL (0.6-1.3); POTASSIUM 4.9 mmol/L (3.5-5.1); TOTAL PROTEIN, SERUM 5.9 g/dL (6.4-8.2)
[2022-06-13] MEDS: PANTOPRAZOLE 40 MG TABLET.DR PO SCH (07:47)
[2022-06-13] MEDS: SEVELAMER CARBONATE 800 MG TABLET PO SCH ×3 (07:47→17:36)
[2022-06-13 08:00] VITALS: BP 138/92
[2022-06-13] MEDS: TAMSULOSIN 0.4 MG CAP.SR.24H PO SCH (08:19)
[2022-06-13] MEDS: METOPROLOL TARTRATE 50 MG TABLET PO SCH ×2 (08:20→21:20)
[2022-06-13] MEDS: DULOXETINE HCL 30 MG CAPSULE.DR PO SCH ×2 (08:29→17:13)
[2022-06-13] MEDS: NITROGLYCERIN 30 GM TUBE TP SCH ×2 (09:39→21:25)
[2022-06-13 10:58] LABS: BASOPHILS % (MANUAL) 0 % (0.0-2.0); EOSINOPHILS % (MANUAL) 6 % (0-4); LYMPHOCYTES % (MANUAL) 5 % (16-48); MONOCYTES % (MANUAL) 6 % (0-11.0); NEUTROPHILS % (MANUAL) 83 (42-76)
[2022-06-13 11:22] VITALS: BP 133/86
[2022-06-13] MEDS: INSULIN REGULAR, HUMAN 100 UNIT/ML 3 ML VIAL SQ PRN ×3 (11:45→22:17)
[2022-06-13 16:00] VITALS: BP 127/71
[2022-06-13] MEDS ORDERED: NEPRO VAN 237 ML CAN PO PRN (17:00)
[2022-06-13] MEDS: ATORVASTATIN 40 MG TABLET PO SCH (17:36)
[2022-06-13] MEDS ORDERED: VANCOMYCIN 1 GM VIAL ONE (20:16)
[2022-06-13] MEDS ORDERED: VANCOMYCIN POST DIALYSIS 500MG IV PRN ×2 (21:00)
[2022-06-14] VITALS: BP 129/73
[2022-06-14 04:00] VITALS: BP 136/81
[2022-06-14] MEDS: PIPERACILLIN /TAZOBACTAM 2.25 G in IV D5W 50 ML IV SCH ×3 (05:08→20:16)
[2022-06-14 06:12] LABS: BASOPHILS # (AUTO) 0.1 K/uL (0.0-0.2); BASOPHILS % (AUTO) 0.5 % (0.0-2.0); EOSINOPHILS % (AUTO) 4.4 % (0.0-6.0); HEMATOCRIT 30 % (39-51); HEMOGLOBIN 9.4 g/dL (13.5-17.5); LYMPHOCYTES # (AUTO) 1.4 K/uL (0.8-4.8); LYMPHOCYTES % (AUTO) 11.7 % (20.0-44.0); MEAN CORPUSCULAR HGB CONC 31 g/dl (31.0-36.0); MEAN CORPUSCULAR VOLUME 103 fL (80-96); MONOCYTES # (AUTO) 0.9 K/uL (0.1-1.30); MONOCYTES % (AUTO) 7.4 % (2.0-12.0); NEUTROPHILS # (AUTO) 8.9 K/uL (1.8-8.9); PLATELET COUNT (AUTO) 92 K/uL (150-450); RED BLOOD CELL COUNT(AUTO) 2.93 MIL/uL (4.5-6.0); WHITE BLOOD COUNT (AUTO) 11.8 K/uL (4.3-11.0)
[2022-06-14] MEDS: BLOOD SUGAR DIAGNOSTIC 1 EACH STRIP IN SCH ×4 (06:33→22:12)
[2022-06-14] MEDS: INSULIN REGULAR, HUMAN 100 UNIT/ML 3 ML VIAL SQ PRN ×4 (06:34→22:29)
[2022-06-14 06:43] LABS: ALBUMIN 2.1 g/dL (3.4-5.0); BILIRUBIN,TOTAL 0.9 mg/dL (0.2-1.0); CALCIUM, SERUM 8.1 mg/dL (8.5-10.1); CREATININE 5.7 mg/dL (0.6-1.3); MAGNESIUM 2.2 mg/dL (1.8-2.4); PHOSPHORUS 5.7 mg/dL (2.5-4.9); POTASSIUM 4.5 mmol/L (3.5-5.1); TOTAL PROTEIN, SERUM 6.1 g/dL (6.4-8.2)
[2022-06-14] MEDS: DULOXETINE HCL 30 MG CAPSULE.DR PO SCH ×2 (08:22→16:03)
[2022-06-14] MEDS: PANTOPRAZOLE 40 MG TABLET.DR PO SCH (08:22)
[2022-06-14] MEDS: SEVELAMER CARBONATE 800 MG TABLET PO SCH ×3 (08:22→17:10)
[2022-06-14] MEDS: TAMSULOSIN 0.4 MG CAP.SR.24H PO SCH (08:22)
[2022-06-14] MEDS: METOPROLOL TARTRATE 50 MG TABLET PO SCH ×2 (08:24→20:17)
[2022-06-14] MEDS ORDERED: BISACODYL (5 MG) 5 MG TABLET.DR PO ONE (08:30)
[2022-06-14] MEDS: NITROGLYCERIN 30 GM TUBE TP SCH ×2 (08:45→20:16)
[2022-06-14] MEDS: ATORVASTATIN 40 MG TABLET PO SCH (17:10)
[2022-06-14 20:00] VITALS: BP 138/88
[2022-06-15] VITALS: BP 173/79
[2022-06-15 04:00] VITALS: BP 161/82
[2022-06-15] MEDS: PIPERACILLIN /TAZOBACTAM 2.25 G in IV D5W 50 ML IV SCH ×3 (04:36→20:52)
[2022-06-15 07:06] LABS: CALCIUM, SERUM 7.9 mg/dL (8.5-10.1); CREATININE 7.3 mg/dL (0.6-1.3); POTASSIUM 4.4 mmol/L (3.5-5.1)
[2022-06-15] MEDS: INSULIN REGULAR, HUMAN 100 UNIT/ML 3 ML VIAL SQ PRN ×3 (07:06→21:50)
[2022-06-15] MEDS: BLOOD SUGAR DIAGNOSTIC 1 EACH STRIP IN SCH ×4 (07:06→21:44)
[2022-06-15] MEDS: METOPROLOL TARTRATE 50 MG TABLET PO SCH ×2 (08:56→21:43)
[2022-06-15] MEDS: SEVELAMER CARBONATE 800 MG TABLET PO SCH ×3 (08:56→17:09)
[2022-06-15] MEDS: TAMSULOSIN 0.4 MG CAP.SR.24H PO SCH (08:56)
[2022-06-15] MEDS: DULOXETINE HCL 30 MG CAPSULE.DR PO SCH ×2 (08:56→17:09)
[2022-06-15] MEDS: NITROGLYCERIN 30 GM TUBE TP SCH ×2 (08:59→21:44)
[2022-06-15] MEDS: PANTOPRAZOLE 40 MG TABLET.DR PO SCH (09:00)
[2022-06-15] MEDS ORDERED: APIX2.5T PO (09:16)
[2022-06-15] MEDS: DILTIAZEM HCL CD 120 MG PO SCH (10:20)
[2022-06-15] MEDS: ATORVASTATIN 40 MG TABLET PO SCH (17:09)
[2022-06-15] MEDS ORDERED: VANCOMYCIN 1 GM in IV D5W 250ml IV ONE (18:00)
[2022-06-15] MEDS: ACETAMINOPHEN 325 MG TABLET PO PRN (18:09)
[2022-06-15 20:00] VITALS: BP 185/89
[2022-06-15] MEDS: OLANZAPINE 10 MG VIAL IM PRN (23:49)
[2022-06-16] VITALS: BP 148/68
[2022-06-16 04:00] VITALS: BP 135/90
[2022-06-16] MEDS: PIPERACILLIN /TAZOBACTAM 2.25 G in IV D5W 50 ML IV SCH ×2 (04:37→12:29)
[2022-06-16 06:16] LABS: CREATININE 5.8 mg/dL (0.6-1.3); POTASSIUM 4.2 mmol/L (3.5-5.1)
[2022-06-16] MEDS: PANTOPRAZOLE 40 MG TABLET.DR PO SCH (08:16)
[2022-06-16] MEDS: SEVELAMER CARBONATE 800 MG TABLET PO SCH ×2 (08:16→12:12)
[2022-06-16] MEDS: DULOXETINE HCL 30 MG CAPSULE.DR PO SCH (08:17)
[2022-06-16] MEDS: TAMSULOSIN 0.4 MG CAP.SR.24H PO SCH (08:17)
[2022-06-16] MEDS: BLOOD SUGAR DIAGNOSTIC 1 EACH STRIP IN SCH ×2 (08:18→12:10)
[2022-06-16 08:36] VITALS: BP 180/94
[2022-06-16] MEDS: METOPROLOL TARTRATE 50 MG TABLET PO SCH (08:43)
[2022-06-16] MEDS: DILTIAZEM HCL CD 120 MG PO SCH (08:43)
[2022-06-16] MEDS: NITROGLYCERIN 30 GM TUBE TP SCH (08:46)
[2022-06-16 11:52] VITALS: BP 159/74
[2022-06-16] MEDS: INSULIN REGULAR, HUMAN 100 UNIT/ML 3 ML VIAL SQ PRN (12:09)
[2022-06-21] MEDS ORDERED: VANCOMYCIN POST DIALYSIS 500MG IV PRN ×2 (12:00)
== END 2022-06-16 16:00 | DRG 853 ==
LOC: ER 07:44 → TELE 11:30 → ICU 06-09 13:59 → MED 06-11 19:36 → TELE 06-11 21:26
PROVIDERS: ADMIT Internal Medicine; ATTEND Internal Medicine
PROC: 5A1D70Z Performance of Urinary Filtration, Intermittent, Less than 6 Hours Per Day (ICD-10-PCS; 2022-06-06)
PROC: 0FT40ZZ Resection of Gallbladder, Open Approach (ICD-10-PCS; principal; 2022-06-09)
PROC: 0FP Hepatobiliary System and Pancreas, Removal (ICD-10-PCS; 2022-06-09)
PROC: 0DNU0ZZ Release Omentum, Open Approach (ICD-10-PCS; 2022-06-09)
PROC: 05H933Z Insertion of Infusion Device into Right Brachial Vein, Percutaneous Approach (ICD-10-PCS; 2022-06-09)
DX: A41.9 Sepsis, unspecified organism (principal); I50.23 Acute on chronic systolic (congestive) heart failure; K85.90 Acute pancreatitis without necrosis or infection, unspecified; N18.6 End stage renal disease; K80.10 Calculus of gallbladder with chronic cholecystitis without obstruction; T85.520A Displacement of bile duct prosthesis, initial encounter; I13.2 Hypertensive heart and chronic kidney disease with heart failure and with stage 5 chronic kidney disease, or end stage renal disease; K86.1 Other chronic pancreatitis; E87.20 Acidosis, unspecified; E87.1 Hypo-osmolality and hyponatremia; I48.92 Unspecified atrial flutter; J98.11 Atelectasis; N17.9 Acute kidney failure, unspecified; N39.0 Urinary tract infection, site not specified; J81.1 Chronic pulmonary edema; I48.20 Chronic atrial fibrillation, unspecified; E87.5 Hyperkalemia; Z20.822 Contact with and (suspected) exposure to COVID-19; Y83.8 Other surgical procedures as the cause of abnormal reaction of the patient, or of later complication, without mention of misadventure at the time of the procedure; Y92.9 Unspecified place or not applicable; E11.22 Type 2 diabetes mellitus with diabetic chronic kidney disease; D53.9 Nutritional anemia, unspecified; E78.5 Hyperlipidemia, unspecified; F17.200 Nicotine dependence, unspecified, uncomplicated; K66.0 Peritoneal adhesions (postprocedural) (postinfection); J44.9 Chronic obstructive pulmonary disease, unspecified; Z79.01 Long term (current) use of anticoagulants; Z79.84 Long term (current) use of oral hypoglycemic drugs; Z79.899 Other long term (current) drug therapy; M89.8X9 Other specified disorders of bone, unspecified site; K59.00 Constipation, unspecified; J32.3 Chronic sphenoidal sinusitis; K76.89 Other specified diseases of liver; N20.0 Calculus of kidney; N26.1 Atrophy of kidney (terminal); N28.1 Cyst of kidney, acquired; Z95.3 Presence of xenogenic heart valve; Z99.2 Dependence on renal dialysis; S30.1XXA Contusion of abdominal wall, initial encounter; X58.XXXA Exposure to other specified factors, initial encounter; F43.21 Adjustment disorder with depressed mood; D69.6 Thrombocytopenia, unspecified
CPT/HCPCS: 36415; 36600; 70450-TC; 71045-TC; 74181-TC; 76700-TC; 80048-TC; 80053-TC; 80076-TC; 80202-TC; 81001; 82150-TC; 82962-TC; 83605-TC; 83690-TC; 83735-TC; 84100-TC; 84484-TC; 85025-TC; 85610-TC; 85730-TC; 86850-TC; 87040-TC; 87081-TC; 87086-TC; 88304-TC; 90935-TC; 93307-TC; 94799-TC; 97110-TC; 97112-TC; 97116-TC; 97530-TC; A4216; A4217; A6209; A6253; A6403; C9803; G0378; J0461; J0690; J0696; J1100; J1170; J1265; J1815; J2270; J2405; J2543; J2704; J2765; J3010; J3370; J3490; J7030; J7040; J7050; J7060; J7120; Q9967

== ENCOUNTER 2022-06-25 14:21 | Inpatient (IN) | payer OTHER ==
[~2022-06-25] VITALS: Ht 167.6 cm; Wt 76.2 kg
[~2022-06-25 14:21] MED LIST changes: -AMOX-430 PO; -LEVO250T59 PO
--- NOTE | 2022-06-25 14:25 | NUR ---
RECEIVED PT 66YRS MALE Came home accompany by treasure c/o rodney pain with sob x 1day after HD DONE [facility]
--- NOTE | 2022-06-25 14:55 | NUR ---
SEEN BY DR. HERR
--- NOTE | 2022-06-25 15:00 | NUR ---
BLOOD DROW BY LAB TACH
--- NOTE | 2022-06-25 15:10 | NUR ---
A-V SKYLART ON LT UPPER ARM WITH GOOD BRITE
[2022-06-25 15:16] LABS: BASOPHILS # (AUTO) 0.1 K/uL (0.0-0.2); BASOPHILS % (AUTO) 0.7 % (0.0-2.0); HEMATOCRIT 31 % (39-51); HEMOGLOBIN 9.7 g/dL (13.5-17.5); LYMPHOCYTES # (AUTO) 0.7 K/uL (0.8-4.8); LYMPHOCYTES % (AUTO) 6.6 % (20.0-44.0); MEAN CORPUSCULAR HGB CONC 31 g/dl (31.0-36.0); MEAN CORPUSCULAR VOLUME 100 fL (80-96); MONOCYTES # (AUTO) 0.8 K/uL (0.1-1.30); MONOCYTES % (AUTO) 7.6 % (2.0-12.0); NEUTROPHILS # (AUTO) 8.4 K/uL (1.8-8.9); NEUTROPHILS % (AUTO) 84.1 % (43.0-81.0); PLATELET COUNT (AUTO) 186 K/uL (150-450); RED BLOOD CELL COUNT(AUTO) 3.11 MIL/uL (4.5-6.0); WHITE BLOOD COUNT (AUTO) 9.9 K/uL (4.3-11.0)
[2022-06-25 15:55] LABS: ALANINE AMINOTRANSFERASE 19 U/L (12-78); ALBUMIN 2.6 g/dL (3.4-5.0); ALKALINE PHOSPHATASE 82 U/L (46-116); ASPARTATE AMINOTRANSFERASE 20 U/L (15-37); BILIRUBIN,DIRECT 0.4 mg/dL (0.0-0.2); CALCIUM, SERUM 8.9 mg/dL (8.5-10.1); CARBON DIOXIDE 33 mmol/L (21-32); CHLORIDE 99 mmol/L (98-107); CREATININE 4.5 mg/dL (0.6-1.3); GLUCOSE 181 mg/dL (74-106); POTASSIUM 3.8 mmol/L (3.5-5.1); SODIUM SERUM 137 mmol/L (136-145); TOTAL PROTEIN, SERUM 7.8 g/dL (6.4-8.2); UREA NITROGEN, BLOOD 21 mg/dL (7-18)
--- NOTE | 2022-06-25 16:39 | NUR ---
Collected COVID19 specimen-to lab
--- NOTE | 2022-06-25 17:16 | NUR ---
CLINICALS FAXED TO [facility] AT [phone]
[2022-06-25] MEDS ORDERED: ACETAMINOPHEN ES 500 MG TABLET ONE (18:40)
[2022-06-25] MEDS ORDERED: ACETAMINOPHEN ES 500 MG TABLET PO ONE (19:00)
--- NOTE | 2022-06-25 19:00 | NUR ---
DR. CHRISTENSEN SPEAKING WITH DR. CARBALLO.
--- NOTE | 2022-06-25 19:26 | NUR ---
HAND OFF KAYE MEADE
--- NOTE | 2022-06-25 21:29 | NUR ---
RM 304-1
--- NOTE | 2022-06-25 22:01 | NUR ---
Hamzah castañeda in [facility] - 06/25/22 at 2218 by DONALDO REPORT GIVEN TO JOSÉ MIGUEL ZhouW DESHAUN FOR ERICKA
[2022-06-25] MEDS: DILTIAZEM HCL CD 240 MG PO ONE (22:30)
--- NOTE | 2022-06-25 23:43 | NUR ---
REPORT GIVEN TO HANDY Mei RN FOR ERICKA
--- NOTE | 2022-06-26 00:08 | NUR ---
PT TRANSFERRED TO 304-1 VIA ACLS PROTOCOL. VSS. ALL BELONGINGS WITH PT.
[2022-06-26 00:45] VITALS: BP 119/89
[2022-06-26] MEDS: METOPROLOL SUCCINATE 50 MG TAB.SR.24H PO SCH ×2 (03:39→09:14)
[2022-06-26] MEDS: DILTIAZEM HCL CD 240 MG PO ONE (03:40)
[2022-06-26 04:00] VITALS: BP 149/98
--- NOTE | 2022-06-26 05:30 | NUR ---
PIPE INSTALLER CLOSING NOTE PT IS BLEEDING PROFUSELY FROM SURGICAL SITE IN ABDOMEN. PRESSURE APPLIED TO SURGICAL SITE, SITE HAS LUIZ. DRESSING APPLIED TO SITE. MD CHRISTENSEN CALLED,AND NOTIFIED. ORDERED TO HOLD ELIQUIS. ORDER CARRIED OUT. ON OCCULTATION, PT HAS ACTIVE BOWEL SOUND, PT'S O2: 98% ON 4L O2 VIA N/C. SAFETY MEASURES IN PLACE: BED IN LOW POSITION, CALL LIGHT WITHIN REACH, SR UP X2. WILL ENDORSE PT TO NEXT SHIFT NURSE FOR ERICKA.
[2022-06-26 06:52] LABS: BASOPHILS # (AUTO) 0.1 K/uL (0.0-0.2); BASOPHILS % (AUTO) 0.8 % (0.0-2.0); EOSINOPHILS % (AUTO) 1.6 % (0.0-6.0); HEMATOCRIT 29 % (39-51); HEMOGLOBIN 9.4 g/dL (13.5-17.5); LYMPHOCYTES # (AUTO) 0.8 K/uL (0.8-4.8); LYMPHOCYTES % (AUTO) 7.8 % (20.0-44.0); MEAN CORPUSCULAR HGB CONC 32 g/dl (31.0-36.0); MEAN CORPUSCULAR VOLUME 100 fL (80-96); MONOCYTES # (AUTO) 0.7 K/uL (0.1-1.30); MONOCYTES % (AUTO) 6.8 % (2.0-12.0); PLATELET COUNT (AUTO) 170 K/uL (150-450); RED BLOOD CELL COUNT(AUTO) 2.92 MIL/uL (4.5-6.0); WHITE BLOOD COUNT (AUTO) 9.7 K/uL (4.3-11.0)
--- NOTE | 2022-06-26 07:10 | NUR ---
ms rn received patient on bed, awake,alert,oriented x3,not in any form of distress,respirations even and unlabored,no sob noted, abd dressing to right abd quadrant, clean and dry, no active bleeding at this time, denies pain at this time. will monitor patient
[2022-06-26] MEDS ORDERED: OMEPRAZOLE 20 MG CAPSULE.DR PO SCH (07:30)
[2022-06-26 07:35] LABS: CALCIUM, SERUM 9.1 mg/dL (8.5-10.1); CREATININE 5.6 mg/dL (0.6-1.3)
[2022-06-26 08:00] VITALS: BP 142/105
--- NOTE | 2022-06-26 08:00 | NUR ---
CONVEYOR MAINTENANCE MECHANICSPORTS ANCHOR NOTE RECEIVED REPORT FROM ER NURSE KAYE. PT CAME FROM ER VIA AQUILES, IN ROOM 304-1 WITH DIAGNOSIS OF FLUID OVERLOAD, AND CHF. PT A/O X 4, ABLE TO VERBALIZE NEEDS. PT ON O2 2L VIA NC. PT ABLE TO AMBULATE WITH ASSIST. ADMISSION COMPLETED, SKIN ASSESSMENT ALSO DONE. PT HAS SURGICAL SITE TO ABDOMEN WITH LUIZ, SITE HAS REDNESS. PT HAS BRUISE TO RIGHT SIDE OF ABDOMEN, AND BACK. PITTING EDEMA 2+ NOTED TO BLE. PICTURES TAKEN, AND PLACED IN CHART. BELONGINGS CHECKED, BELONGING LIST COMPLETED, AND SIGNED. WILL CONTINUE TO MONITOR PT.
[2022-06-26] MEDS ORDERED: APIXABAN 2.5 MG TABLET PO SCH (09:00)
--- NOTE | 2022-06-26 09:00 | NUR ---
ms marin breakfast served,due meds given,tolerated well.
[2022-06-26] MEDS: SEVELAMER CARBONATE 800 MG TABLET PO SCH ×3 (09:13→17:30)
[2022-06-26] MEDS: DULOXETINE HCL 30 MG CAPSULE.DR PO SCH ×2 (09:14→16:28)
[2022-06-26] MEDS: TAMSULOSIN 0.4 MG CAP.SR.24H PO SCH (09:14)
[2022-06-26] MEDS: DILTIAZEM HCL CD 240 MG PO SCH (09:14)
[2022-06-26] MEDS: VIT B CMPLX 3/FA/VIT C/BIOTIN 1 TAB TABLET PO SCH (09:14)
[2022-06-26] MEDS: glipiZIDE 5 MG TABLET PO SCH ×2 (09:15→16:28)
[2022-06-26] MEDS: PANTOPRAZOLE 40 MG TABLET.DR PO SCH (09:16)
--- NOTE | 2022-06-26 11:30 | NUR ---
ms rn was seen by dr. Sp moreno/ orders made and carried out.
[2022-06-26 12:00] VITALS: BP 160/108
[2022-06-26] MEDS ORDERED: VANCOMYCIN 1 GM in IV D5W 250 ML IV ONE (12:00)
[2022-06-26] MEDS: PIPERACILLIN /TAZOBACTAM 2.25 G in IV D5W 50 ML IV SCH ×2 (12:57→20:15)
[2022-06-26 16:00] VITALS: BP 128/88
--- NOTE | 2022-06-26 16:31 | NUR ---
ms rn on bed, no distress noted,all needs attended.
[2022-06-26] MEDS: ATORVASTATIN 40 MG TABLET PO SCH (17:30)
[2022-06-26] MEDS: ACETAMINOPHEN 325 MG TABLET PO PRN (19:00)
--- NOTE | 2022-06-26 19:30 | NUR ---
PRESSURIZER OPENING NOTE RECEIVED PATIENT FROM MORNING SHIFT NURSE; PATIENT IS ALERT AND ORIENTED X 3; ON NASAL CANNULA 2LPM, TOLERATING WELL AND NO RESPIRATORY DISTRESS NOTED; ABLE TO MAKE NEEDS KNOWN; WITH IV ACCESS IN RIGHT WRIST G20, INTACT AND PATENT; WITH AV SHUNT AT NOAH, PRESENCE OF BRUIT AND SHRILL NOTED; SAFETY PRECAUTIONS IMPLEMENTED, BED IN LOW POSITION, LOCKED, SIDE RAILS UP X 3, CALL LIGHT WITHIN REACH; WILL CONTINUE TO MONITOR THROUGHOUT SHIFT
[2022-06-26 20:00] VITALS: BP 151/93
[2022-06-26] MEDS: GABAPENTIN 300 MG CAPSULE PO SCH (22:14)
--- NOTE | 2022-06-26 22:30 | NUR ---
PHARMACY INTERN NOTE UPON ADMINISTERING GABAPENTIN, PATIENT ACCIDENTALLY DROPPED THE MEDICATION ON THE FLOOR. THUS, I TOOK ANOTHER PILL FOR THE PATIENT TO TAKE.
[2022-06-27] MEDS: PIPERACILLIN /TAZOBACTAM 2.25 G in IV D5W 50 ML IV SCH ×3 (04:56→21:15)
--- NOTE | 2022-06-27 06:46 | NUR ---
MATERIAL FLOW ANALYST CLOSING NOTE PATIENT IN BED, ALERT AND ORIENTED X 3; ON NASAL CANNULA 2L, TOLERATING WELL AND BREATHING EVENLY; ABLE TO MAKE NEEDS KNOWN; WITH IV ACCESS IN RIGHT WRIST G20, INTACT AND PATENT; WITH AV SHUNT AT [facility], PRESENCE OF BRUIT AND SHRILL NOTED; HOOKED TO RECORDING ARTIST CURRENTLY READING ATRIAL FIBRILLATION 65BPM; ADMINISTERED MEDICATIONS PRESCRIBED; PLACED IN SEMI FOWLERS POSITION TO FACILITATE BETTER BREATHING; MONITORED ACCORDINGLY; PATIENT'S NEEDS ATTENDED; SAFETY PRECAUTIONS IMPLEMENTED, BED IN LOW POSITION, LOCKED, SIDE RAILS UP X 3, CALL LIGHT WITHIN REACH; WILL ENDORSE TO AM NURSE FOR CONTINUITY OF CARE
--- NOTE | 2022-06-27 07:46 | NUR ---
RN OPENING NOTE PATIENT AWAKE IN BED RESTING, A/O X 3. NO S/S OF PAIN NOTED AT THIS TIME. ON 2L OXYGEN VIA NC, NO DISTRESS OR SHORTNESS OF BREATH NOTED. IV ACCESS R WRIST #20G, INTACT, PATENT AND FLUSHING WELL. PATIENT WITH EXTERNAL CARD WRITER HAND WITH CURRENT READING OF A-FIB AND HR OF 65. FALL AND SAFETY MEASURES IN PLACE, BED ALARM ON, BED IN LOW AND LOCK POSITION, CALL LIGHT AND TABLE WITHIN EASY REACH, SIDE RAILS UP X2. WILL CONTINUE TO MONITOR.
[2022-06-27 08:00] VITALS: BP 141/87
[2022-06-27 08:13] LABS: CREATININE 6.9 mg/dL (0.6-1.3); POTASSIUM 4.4 mmol/L (3.5-5.1)
[2022-06-27] MEDS: SEVELAMER CARBONATE 800 MG TABLET PO SCH ×3 (09:04→17:22)
[2022-06-27] MEDS: DULOXETINE HCL 30 MG CAPSULE.DR PO SCH ×2 (09:04→17:22)
[2022-06-27] MEDS: VIT B CMPLX 3/FA/VIT C/BIOTIN 1 TAB TABLET PO SCH (09:04)
[2022-06-27] MEDS: PANTOPRAZOLE 40 MG TABLET.DR PO SCH (09:05)
[2022-06-27] MEDS: glipiZIDE 5 MG TABLET PO SCH ×2 (09:05→15:55)
[2022-06-27] MEDS: DILTIAZEM HCL CD 240 MG PO SCH (09:05)
[2022-06-27] MEDS: TAMSULOSIN 0.4 MG CAP.SR.24H PO SCH (09:05)
[2022-06-27 12:00] VITALS: BP 163/88
[2022-06-27 13:17] LABS: HEMOGLOBIN 8.9 g/dL (13.5-17.5)
[2022-06-27 16:00] VITALS: BP 130/83
[2022-06-27] MEDS: ATORVASTATIN 40 MG TABLET PO SCH (17:22)
--- NOTE | 2022-06-27 18:30 | NUR ---
TRIM SETTER OPENING NOTES PATIENT AWAKE IN BED RESTING, A/O X 3. NO S/S OF PAIN NOTED AT THIS TIME. ON 4L OXYGEN VIA NC, NO DISTRESS OR SHORTNESS OF BREATH NOTED. IV ACCESS R WRIST #20G, INTACT, PATENT AND FLUSHING WELL. SAFETY MEASURES GIVEN WITH BED ON LOWEST AND LOCKED POSITION. CALL LIGHT AND TABLE WITHIN EASY REACH, SIDE RAILS UP X2. WILL CONTINUE WITH THE PLAN OF CARE. Addendum: 06/28/22 at 0037 by BRIAN DIAZ RN MS RN OPENING NOTES
--- NOTE | 2022-06-27 18:51 | NUR ---
RN CLOSING NOTE PATIENT AWAKE IN BED RESTING, A/O X 3. NO S/S OF PAIN NOTED AT THIS TIME. ON 4L OXYGEN VIA NC, NO DISTRESS OR SHORTNESS OF BREATH NOTED. IV ACCESS R WRIST #20G, INTACT, PATENT AND FLUSHING WELL. PATIENT WAS TRANSFER TO [facility]G FROM [facility]. PATIENT WOUND CARE PROVIDED, PATIENT HAVE SURGICAL ABDOMEN WOUND BLEEDING, DRESSING WAS CHANGED AND REENFORCED DURING THE SHIFT, DOCTOR AWARE. SCHEDULE MEDICATIONS ADMINISTERED. FALL AND SAFETY MEASURES IN PLACE, BED ALARM ON, BED IN LOW AND LOCK POSITION, CALL LIGHT AND TABLE WITHIN EASY REACH, SIDE RAILS UP X2. ALL NEEDS ATTENDED AND ANTICIPATED. WILL CONTINUE TO MONITOR. Addendum: 06/27/22 at 1858 by Karlie Vasquez RN WILL ENDORSE TO SOA ENGINEER.
[2022-06-27 20:00] VITALS: BP 137/76
[2022-06-27] MEDS: GABAPENTIN 300 MG CAPSULE PO SCH (22:45)
[2022-06-27] MEDS: METOPROLOL SUCCINATE 50 MG TAB.SR.24H PO SCH (22:47)
[2022-06-28] MEDS: PIPERACILLIN /TAZOBACTAM 2.25 G in IV D5W 50 ML IV SCH ×3 (04:55→20:42)
--- NOTE | 2022-06-28 05:22 | NUR ---
MS RN NOTES IV MEDICATIONS GIVEN. WILL CONTINUE TO MONITOR PATIENT.
--- NOTE | 2022-06-28 06:30 | NUR ---
MS RN CLOSING NOTES PATIENT AWAKE, ALERT AND ORIENTED. A/O X 4. NO S/S OF PAIN NOTED AT THIS TIME. ON 4L OXYGEN VIA NC, NO DISTRESS OR SHORTNESS OF BREATH NOTED. IV ACCESS R WRIST #20G, INTACT, PATENT AND FLUSHING WELL. PATIENT WOUND CARE PROVIDED, PATIENT HAVE SURGICAL ABDOMEN WOUND BLEEDING, DRESSING WAS CHANGED AND REENFORCED DURING THE SHIFT, DOCTOR AWARE. SCHEDULE MEDICATIONS ADMINISTERED. FALL AND SAFETY MEASURES IN PLACE, BED ALARM ON, BED IN LOW AND LOCK POSITION, CALL LIGHT AND TABLE WITHIN EASY REACH, SIDE RAILS UP X2. WILL ENDORSE FOR THE CONTINUITY OF CARE.
[2022-06-28 07:06] LABS: BASOPHILS # (AUTO) 0.1 K/uL (0.0-0.2); BASOPHILS % (AUTO) 1.1 % (0.0-2.0); CALCIUM, SERUM 8.1 mg/dL (8.5-10.1); CREATININE 5.4 mg/dL (0.6-1.3); EOSINOPHILS % (AUTO) 1.5 % (0.0-6.0); HEMATOCRIT 32 % (39-51); HEMOGLOBIN 9.8 g/dL (13.5-17.5); LYMPHOCYTES # (AUTO) 0.7 K/uL (0.8-4.8); LYMPHOCYTES % (AUTO) 11.1 % (20.0-44.0); MEAN CORPUSCULAR HGB CONC 31 g/dl (31.0-36.0); MEAN CORPUSCULAR VOLUME 102 fL (80-96); MONOCYTES # (AUTO) 0.6 K/uL (0.1-1.30); MONOCYTES % (AUTO) 8.6 % (2.0-12.0); NEUTROPHILS # (AUTO) 5.1 K/uL (1.8-8.9); NEUTROPHILS % (AUTO) 77.7 % (43.0-81.0); PLATELET COUNT (AUTO) 138 K/uL (150-450); POTASSIUM 4.4 mmol/L (3.5-5.1); WHITE BLOOD COUNT (AUTO) 6.6 K/uL (4.3-11.0)
--- NOTE | 2022-06-28 07:10 | NUR ---
RECEIVED PT IN BED AWAKE BUT WITH SIGNS OF WEAKNESS, CONFUSION AND HUNGER. BREAKFAST HAS BEEN NOTED TO BE SERVED IMMEDIATELY
--- NOTE | 2022-06-28 07:12 | NUR ---
RECEIVED A CALL FR LAB WITH CRITICAL GLUCOSE AT 38. MD CHRISTENSEN INFORMED WHO ORDERED D50 IV. PER PHARMACY, D50 IV IS UNAVAILABLE. INSTEAD, 10% DEXTROSE IN 250 ML HAS BEEN GIVEN REPLACEMENT ORDER. PER PHARMACY, IF ADMINISTER BY GRAVITY FLOW, 250 ML OF D10 IS EQUIVALENT TO ONE PRE-LOADED SYRYNGE OF D50 (25G).
[2022-06-28] MEDS: glipiZIDE 5 MG TABLET PO SCH (07:30)
[2022-06-28] MEDS ORDERED: DEXTROSE 50%-WATER 50 ML DISP.SYRIN IVP ONE (07:30)
--- NOTE | 2022-06-28 07:54 | NUR ---
GLUCOSE IS 58 VIA ACCUCHECK. PT HAS BEEN EATING HIS BREAKFAST WELL
[2022-06-28] MEDS ORDERED: DEXTROSE 10% IN WATER 250 ML BAG IV ONE (08:00)
[2022-06-28 08:27] VITALS: BP 138/84
[2022-06-28] MEDS: PANTOPRAZOLE 40 MG TABLET.DR PO SCH (08:39)
[2022-06-28] MEDS: SEVELAMER CARBONATE 800 MG TABLET PO SCH ×3 (08:40→17:11)
[2022-06-28] MEDS: DILTIAZEM HCL CD 240 MG PO SCH (08:41)
[2022-06-28] MEDS: DULOXETINE HCL 30 MG CAPSULE.DR PO SCH ×2 (08:42→16:07)
[2022-06-28] MEDS: VIT B CMPLX 3/FA/VIT C/BIOTIN 1 TAB TABLET PO SCH (08:42)
[2022-06-28] MEDS: TAMSULOSIN 0.4 MG CAP.SR.24H PO SCH (08:42)
--- NOTE | 2022-06-28 10:49 | NUR ---
GLUCOSE READING IS 128 PER ACCUCHECK
[2022-06-28] MEDS: BLOOD SUGAR DIAGNOSTIC 1 EACH STRIP IN SCH ×3 (12:40→22:15)
[2022-06-28] MEDS: ACETAMINOPHEN 325 MG TABLET PO PRN ×2 (13:40→21:58)
[2022-06-28 16:06] VITALS: BP 114/82
[2022-06-28] MEDS: VANCOMYCIN 500 MG in IV D5W 100 ML IV PRN (16:08)
[2022-06-28] MEDS: ATORVASTATIN 40 MG TABLET PO SCH (17:11)
--- NOTE | 2022-06-28 19:34 | NUR ---
MS RN CLOSING NOTES PATIENT AWAKE, ALERT AND ORIENTED. A/O X 4. NO S/S OF PAIN NOTED AT THIS TIME. ON 4L OXYGEN VIA NC, NO DISTRESS OR SHORTNESS OF BREATH NOTED. IV ACCESS RIGHT FOREARM #20G, INTACT, PATENT AND FLUSHING WELL. PATIENT'S SURGICAL ABDOMEN WOUND WAS BLEEDING, DR AYALA CAME OVER AND STAPLED THE LOWER PART OF THE WOUND. DRESSING WAS CHANGED AND REENFORCED. ALL SCHEDULE MEDICATIONS WERE ADMINISTERED. FALL AND SAFETY MEASURES IN PLACE, BED ALARM ON, BED IN LOW AND LOCK POSITION, CALL LIGHT AND TABLE WITHIN EASY REACH, SIDE RAILS UP X2. WILL ENDORSE FOR THE CONTINUITY OF CARE.
--- NOTE | 2022-06-28 19:40 | NUR ---
MS RN OPENING NOTE RECEIVED PATIENT FROM MORNING SHIFT NURSE; PATIENT IS ALERT AND ORIENTED X 3; ON NASAL CANNULA 4LPM, TOLERATING WELL AND NO RESPIRATORY DISTRESS NOTED; ABLE TO MAKE NEEDS KNOWN; WITH IV ACCESS IN RFA G20, INTACT AND PATENT; WITH AV SHUNT AT NOAH, PRESENCE OF BRUIT AND SHRILL NOTED; SAFETY PRECAUTIONS IMPLEMENTED, BED IN LOW POSITION, LOCKED, SIDE RAILS UP X 3, CALL LIGHT WITHIN REACH; WILL CONTINUE TO MONITOR THROUGHOUT SHIFT
[2022-06-28 20:00] VITALS: BP 147/76
[2022-06-28] MEDS: GABAPENTIN 300 MG CAPSULE PO SCH (21:58)
[2022-06-28] MEDS: METOPROLOL SUCCINATE 50 MG TAB.SR.24H PO SCH (21:58)
--- NOTE | 2022-06-28 22:30 | NUR ---
MS RN NOTE ACCUCHECK AT 2200H WAS 50. REPEAT IN 15 MINUTES, INCREASED TO 51. ASYMPTOMATIC FOR HYPOGLYCEMIA, PATIENT IS ALERT AND ORIENTED X 4, CONVERSANT. CHARGE NURSE MADE AWARE. ORDERED FOR RANDOM BLOOD SUGAR, AWAITING FOR RESULT.
--- NOTE | 2022-06-29 00:34 | NUR ---
MS RN NOTES RANDOM BLOOD SUGAR RESULT 64MG/DL.ASYMPTOMATIC FOR HYPOGLYCEMIA.SNACKS PROVIDED AT BEDSIDE.
--- NOTE | 2022-06-29 01:35 | NUR ---
MS DESHAUN NOTE PATIENT COMPLAINED OF CHEST PAIN AT 0115H, STAT EKG WAS ORDERED, DR CHRISTENSEN MADE AWARE AND ORDERS WERE DONE, TROPONIN Q6H X 3, HOOKED TO CLAIM APPROVER AND TYLENOL. LAST TYLENOL WAS GIVEN 3HRS AGO. Addendum: 06/29/22 at 0145 by TAL ESTEVES RN VITAL SIGNS FOLLOWS: BP 153/85, HR 64 BPM, RR 20, O2 SAT 97%, TEMP 97.5
[2022-06-29 04:00] VITALS: BP 131/86
[2022-06-29] MEDS: PIPERACILLIN /TAZOBACTAM 2.25 G in IV D5W 50 ML IV SCH ×3 (04:38→20:49)
[2022-06-29] MEDS: ACETAMINOPHEN 325 MG TABLET PO PRN ×2 (06:03→21:19)
--- NOTE | 2022-06-29 06:30 | NUR ---
MS RN NOTE BLOOD SUGAR VIA ACCUCHECK IS 53. ASYMPTOMATIC FOR HYPOGLYCEMIA. DR CHRISTENSEN MADE AWARE, ORDERED FOR D50. SNACK GIVEN TO PATIENT.
[2022-06-29] MEDS ORDERED: DEXTROSE 50%-WATER 50 ML DISP.SYRIN ONE (06:37)
[2022-06-29] MEDS ORDERED: DEXTROSE 10% IN WATER 250 ML BAG IV ONE (07:00)
--- NOTE | 2022-06-29 07:00 | NUR ---
MS RN OPENING NOTE RECEIVED PATIENT ALERT AND ORIENTED X 3; ON NASAL CANNULA 4LPM, TOLERATING WELL AND NO RESPIRATORY DISTRESS NOTED; ABLE TO MAKE NEEDS KNOWN; WITH IV ACCESS IN RFA G20, INTACT AND PATENT; WITH AV SHUNT AT NOAH, PRESENCE OF BRUIT AND SHRILL NOTED; SAFETY PRECAUTIONS IMPLEMENTED, BED IN LOW POSITION, LOCKED, SIDE RAILS UP X 3, CALL LIGHT WITHIN REACH; WILL CONTINUE TO MONITOR THROUGHOUT SHIFT
[2022-06-29] MEDS: BLOOD SUGAR DIAGNOSTIC 1 EACH STRIP IN SCH ×4 (07:04→21:45)
--- NOTE | 2022-06-29 07:05 | NUR ---
FILE SYSTEM INSTALLER CLOSING NOTE PATIENT IS ALERT AND ORIENTED X 3; ON NASAL CANNULA 4LPM, TOLERATING WELL AND NO RESPIRATORY DISTRESS NOTED; ABLE TO MAKE NEEDS KNOWN; WITH IV ACCESS IN RFA G20, INTACT AND PATENT; WITH AV SHUNT AT NOAH, PRESENCE OF BRUIT AND SHRILL NOTED; ADMINISTERED MEDICATIONS PRESCRIBED; ENCOURAGED VERBALIZATION OF NEEDS; PATIENT CONVERTED TO ATRIAL FLUTTER SEEN IN STAT EKG, MD MADE AWARE AND ORDERS WERE FACILITATED; PATIENT IS NOW ON TELE MONITORING; MONITORED PATIENT ACCORDINGLY; SAFETY PRECAUTIONS IMPLEMENTED, BED IN LOW POSITION, LOCKED, SIDE RAILS UP X 3, CALL LIGHT WITHIN REACH; WILL ENDORSE TO AM NURSE FOR CONTINUITY OF CARE
[2022-06-29 07:24] LABS: BASOPHILS # (AUTO) 0.1 K/uL (0.0-0.2); BASOPHILS % (AUTO) 1.2 % (0.0-2.0); EOSINOPHILS % (AUTO) 8.5 % (0.0-6.0); HEMATOCRIT 28 % (39-51); HEMOGLOBIN 8.8 g/dL (13.5-17.5); LYMPHOCYTES # (AUTO) 0.8 K/uL (0.8-4.8); LYMPHOCYTES % (AUTO) 13.5 % (20.0-44.0); MEAN CORPUSCULAR HGB CONC 31 g/dl (31.0-36.0); MEAN CORPUSCULAR VOLUME 100 fL (80-96); MONOCYTES # (AUTO) 0.6 K/uL (0.1-1.30); MONOCYTES % (AUTO) 10.5 % (2.0-12.0); NEUTROPHILS # (AUTO) 3.7 K/uL (1.8-8.9); NEUTROPHILS % (AUTO) 66.3 % (43.0-81.0); PLATELET COUNT (AUTO) 156 K/uL (150-450); RED BLOOD CELL COUNT(AUTO) 2.85 MIL/uL (4.5-6.0); WHITE BLOOD COUNT (AUTO) 5.6 K/uL (4.3-11.0)
[2022-06-29 07:48] LABS: CALCIUM, SERUM 8.4 mg/dL (8.5-10.1); CREATININE 5.1 mg/dL (0.6-1.3); POTASSIUM 4.6 mmol/L (3.5-5.1)
[2022-06-29] MEDS: PANTOPRAZOLE 40 MG TABLET.DR PO SCH (07:49)
[2022-06-29 08:00] VITALS: BP 124/87
[2022-06-29] MEDS: SEVELAMER CARBONATE 800 MG TABLET PO SCH ×3 (08:15→17:19)
[2022-06-29] MEDS: VIT B CMPLX 3/FA/VIT C/BIOTIN 1 TAB TABLET PO SCH (08:15)
[2022-06-29] MEDS: DULOXETINE HCL 30 MG CAPSULE.DR PO SCH ×2 (08:16→16:22)
[2022-06-29] MEDS: DILTIAZEM HCL CD 240 MG PO SCH (08:16)
[2022-06-29] MEDS: TAMSULOSIN 0.4 MG CAP.SR.24H PO SCH (08:17)
--- NOTE | 2022-06-29 11:05 | NUR ---
CONSENT FOR THORACENTESIS, ULTRA SOUND GUIDED WAS SIGNED BY THE PATIENT. PT/INR WERE ADDED TO THE MORNING LABS (STAT) ORDERED BY
[2022-06-29 12:00] VITALS: BP 139/79
[2022-06-29] MEDS: VANCOMYCIN 500 MG in IV D5W 100 ML IV PRN ×2 (13:40→15:58)
--- NOTE | 2022-06-29 15:55 | NUR ---
HD DONE. 2000ML OUT TODAY
[2022-06-29 16:00] VITALS: BP 138/95
[2022-06-29] MEDS: ATORVASTATIN 40 MG TABLET PO SCH (17:18)
--- NOTE | 2022-06-29 19:05 | NUR ---
MS RN CLOSING NOTES PATIENT AWAKE, ALERT AND ORIENTED. A/O X 4. NO S/S OF PAIN NOTED AT THIS TIME. ON 4L OXYGEN VIA NC, NO DISTRESS OR SHORTNESS OF BREATH NOTED. IV ACCESS RIGHT FOREARM #20G, INTACT, PATENT AND FLUSHING WELL. PATIENT'S AWAITING THORACENTESIS SCHEDULED FOR TOMORROW. ALL SCHEDULE MEDICATIONS WERE ADMINISTERED. FALL AND SAFETY MEASURES IN PLACE, BED ALARM ON, BED IN LOW AND LOCK POSITION, CALL LIGHT AND TABLE WITHIN EASY REACH, SIDE RAILS UP X2. WILL ENDORSE TO MANAGER WORKERS COMPENSATION RN FOR CONTINUITY OF CARE.
--- NOTE | 2022-06-29 19:30 | NUR ---
COMMERCIAL REAL ESTATE AGENT OPENING NOTE RECEIVED PATIENT FROM MORNING SHIFT NURSE; PATIENT IS ALERT AND ORIENTED X 3; ON NASAL CANNULA 4LPM, TOLERATING WELL AND NO RESPIRATORY DISTRESS NOTED; ABLE TO MAKE NEEDS KNOWN; WITH IV ACCESS IN RFA G20, INTACT AND PATENT; WITH AV SHUNT AT NOAH, PRESENCE OF BRUIT AND SHRILL NOTED; SAFETY PRECAUTIONS IMPLEMENTED, BED IN LOW POSITION, LOCKED, SIDE RAILS UP X 3, CALL LIGHT WITHIN REACH; WILL CONTINUE TO MONITOR THROUGHOUT SHIFT
[2022-06-29] MEDS: GABAPENTIN 300 MG CAPSULE PO SCH (21:19)
[2022-06-29] MEDS: METOPROLOL SUCCINATE 50 MG TAB.SR.24H PO SCH (21:40)
[2022-06-30] MEDS: PIPERACILLIN /TAZOBACTAM 2.25 G in IV D5W 50 ML IV SCH ×3 (04:48→20:03)
--- NOTE | 2022-06-30 05:30 | NUR ---
GUEST SERVICES REPRESENTATIVE NOTE PATIENT PULLED OUT HIS IV. REINSERTED AT RFA GAUGE 20, INTACT AND PATENT, FLUSHED WITH NORMAL SALINE.
[2022-06-30 05:51] LABS: BASOPHILS # (AUTO) 0.1 K/uL (0.0-0.2); BASOPHILS % (AUTO) 1.2 % (0.0-2.0); EOSINOPHILS % (AUTO) 6.8 % (0.0-6.0); HEMATOCRIT 29 % (39-51); HEMOGLOBIN 9.1 g/dL (13.5-17.5); LYMPHOCYTES # (AUTO) 0.9 K/uL (0.8-4.8); LYMPHOCYTES % (AUTO) 14.3 % (20.0-44.0); MEAN CORPUSCULAR HGB CONC 31 g/dl (31.0-36.0); MEAN CORPUSCULAR VOLUME 101 fL (80-96); MONOCYTES # (AUTO) 0.6 K/uL (0.1-1.30); MONOCYTES % (AUTO) 10.7 % (2.0-12.0); NEUTROPHILS # (AUTO) 4.1 K/uL (1.8-8.9); PLATELET COUNT (AUTO) 157 K/uL (150-450); RED BLOOD CELL COUNT(AUTO) 2.91 MIL/uL (4.5-6.0); WHITE BLOOD COUNT (AUTO) 6.1 K/uL (4.3-11.0)
[2022-06-30 06:20] LABS: CALCIUM, SERUM 8.8 mg/dL (8.5-10.1); CREATININE 5.7 mg/dL (0.6-1.3); POTASSIUM 5.2 mmol/L (3.5-5.1)
--- NOTE | 2022-06-30 06:50 | NUR ---
NEON SIGN INSTALLER CLOSING NOTE PATIENT IS ALERT AND ORIENTED X 3; ON NASAL CANNULA 4LPM, TOLERATING WELL AND NO RESPIRATORY DISTRESS NOTED; ABLE TO MAKE NEEDS KNOWN; WITH IV ACCESS IN RFA G20, INTACT AND PATENT; WITH AV SHUNT AT NOAH, PRESENCE OF BRUIT AND SHRILL NOTED; ADMINISTERED MEDICATIONS PRESCRIBED; ENCOURAGED VERBALIZATION OF NEEDS; NEEDS ATTENDED; ON TELE MONITORING CURRENTLY READING ATRIAL FLUTTER 68 BPM; MONITORED PATIENT ACCORDINGLY; SAFETY PRECAUTIONS IMPLEMENTED, BED IN LOW POSITION, LOCKED, SIDE RAILS UP X 3, CALL LIGHT WITHIN REACH; WILL ENDORSE TO AM NURSE FOR CONTINUITY OF CARE
[2022-06-30 07:00] VITALS: BP 154/89
[2022-06-30] MEDS: BLOOD SUGAR DIAGNOSTIC 1 EACH STRIP IN SCH ×4 (07:10→21:48)
--- NOTE | 2022-06-30 07:20 | NUR ---
RN OPENING NOTE RECEIVED PATIENT IN BED, AWAKE, A/O X4, VERBALLY RESPONSIVE AND ABLE TO MAKE NEEDS KNOWN. NO SIGNS OF ACUTE DISTRESS NOTED. ON O2 INHALATION @4LPM VIA N/C, DENIES SOB, BREATHING EVEN AND UNLABORED. ON TELE MONITOR SHOWING SINUS RHYTHM, HR @76. DENIES ANY PAIN OR DISCOMFORT AT THIS TIME. NOTED WITH IV ACCESS ON RIGHT FOREARM #20G, INTACT AND PATENT, FLUSHES WELL. WITH LEFT UPPER ARM AV SHUNT, NO BLEEDING NOTED. SAFETY MEASURE IN PLACE, BED IN LOW AND LOCKED POSITION. SIDE RAILS UP X2, CALL LIGHT PLACED WITIN EASY REACH. WILL CONTINUE TO MONITOR PATIENT.
[2022-06-30] MEDS: PANTOPRAZOLE 40 MG TABLET.DR PO SCH (08:37)
[2022-06-30] MEDS: VIT B CMPLX 3/FA/VIT C/BIOTIN 1 TAB TABLET PO SCH (08:37)
[2022-06-30] MEDS: DULOXETINE HCL 30 MG CAPSULE.DR PO SCH ×2 (08:37→16:19)
[2022-06-30] MEDS: TAMSULOSIN 0.4 MG CAP.SR.24H PO SCH (08:38)
[2022-06-30] MEDS: SEVELAMER CARBONATE 800 MG TABLET PO SCH ×3 (08:38→17:12)
[2022-06-30] MEDS: DILTIAZEM HCL CD 240 MG PO SCH (08:38)
--- NOTE | 2022-06-30 11:30 | NUR ---
RN NOTE S/P RIGHT THORACENTESIS, 1650 ML OF PLEURAL FLUID REMOVED. PATIENT TOLERATED PROCEDURE WELL. STAT CHEST X-RAY ORDERED. BODY FLUID SENT TO LAB.
[2022-06-30] MEDS: ATORVASTATIN 40 MG TABLET PO SCH (17:12)
--- NOTE | 2022-06-30 17:45 | NUR ---
RN NOTE PATIENT NOTED WITH CHEST CONGESTION. DR. CHRISTENSEN MADE AWARE, WITH NEW ORDER FOR XOPENEX BREATHING TREATMENT. ORDER NOTED AND CARRIED OUT.
[2022-06-30] MEDS ORDERED: ALBUTEROL FS 2.5 MG/3 ML VIAL.NEB NEB PRN ×2 (18:00)
--- NOTE | 2022-06-30 18:33 | NUR ---
RN CLOSING NOTE PATIENT IN BED, AWAKE, A/O X4, VERBALLY RESPONSIVE AND ABLE TO MAKE NEEDS KNOWN. NO SIGNS OF ACUTE DISTRESS NOTED. ON O2 INHALATION @4LPM VIA N/C. BREATHING EVEN AND UNLABORED. NO C/O PAIN OR DISCOMFORT AT THIS TIME. IV ACCESS ON RIGHT FOREARM #20G, INTACT AND PATENT, FLUSHES WELL. WITH LEFT UPPER ARM AV SHUNT, NO BLEEDING NOTED. ALL DUE MEDS GIVEN, TOLERATED WELL. SAFETY MEASURE IN PLACE, BED IN LOW AND LOCKED POSITION. SIDE RAILS UP X2, CALL LIGHT PLACED WITHIN EASY REACH. WILL ENDORSE TO NEXT SHIFT FOR CONTINUITY OF CARE.
--- NOTE | 2022-06-30 19:23 | NUR ---
MS OPENING NOTE RECEIVED PATIENT FROM MORNING SHIFT NURSE; PATIENT IS ALERT AND ORIENTED X 3; ON NASAL CANNULA 4LPM, TOLERATING WELL AND NO RESPIRATORY DISTRESS NOTED; ABLE TO MAKE NEEDS KNOWN; WITH IV ACCESS IN RFA G20 SALINE LOCK, INTACT AND PATENT; WITH AV SHUNT AT NOAH, PRESENCE OF BRUIT AND SHRILL NOTED; SAFETY PRECAUTIONS IMPLEMENTED, BED IN LOW POSITION, LOCKED, SIDE RAILS UP X 2, CALL LIGHT WITHIN REACH; WILL CONTINUE TO MONITOR THROUGHOUT SHIFT
[2022-06-30 20:00] VITALS: BP 148/75
[2022-06-30] MEDS: METOPROLOL SUCCINATE 50 MG TAB.SR.24H PO SCH (21:41)
[2022-06-30] MEDS: GABAPENTIN 300 MG CAPSULE PO SCH (21:41)
[2022-07-01] MEDS: ACETAMINOPHEN 325 MG TABLET PO PRN (02:03)
--- NOTE | 2022-07-01 02:15 | NUR ---
PATIENT COMPLAINED OF CHEST PAIN AND DIFFICULTY BREATHING, VITAL SIGNS TAKEN, HEAD OF BED ELEVATED, CALLED RESPIRATORY THERAPIST FOR BREATHING TREATMENT AND ADMINISTERED PAIN MEDICATION PRN, PATIENT TOLERATED WELL AND FELL ASLEEP
[2022-07-01] MEDS: PIPERACILLIN /TAZOBACTAM 2.25 G in IV D5W 50 ML IV SCH ×3 (04:33→21:19)
--- NOTE | 2022-07-01 06:48 | NUR ---
CLINICAL TRIALS ASSISTANT CLOSING NOTE PATIENT IS ALERT AND ORIENTED X 3; ON NASAL CANNULA 4LPM, TOLERATING WELL AND NO RESPIRATORY DISTRESS NOTED; ABLE TO MAKE NEEDS KNOWN; WITH IV ACCESS IN RFA G20 SALINE LOCK, INTACT AND PATENT; WITH AV SHUNT AT NOAH, PRESENCE OF BRUIT AND SHRILL NOTED; HOOKED TO MARGIN TRIMMER CURRENTLY READING ATRIAL FLUTTER 61 BPM; ADMINISTERED MEDICATIONS PRESCRIBED, PATIENT'S NEEDS ATTENDED; MONITORED ACCORDINGLY; SAFETY PRECAUTIONS IMPLEMENTED, BED IN LOW POSITION, LOCKED, SIDE RAILS UP X 2, CALL LIGHT WITHIN REACH; WILL ENDORSE TO AM NURSE FOR CONTINUITY OF CARE
[2022-07-01 08:00] VITALS: BP 143/81
[2022-07-01 08:01] LABS: CALCIUM, SERUM 8.9 mg/dL (8.5-10.1); CREATININE 7.2 mg/dL (0.6-1.3); POTASSIUM 5.3 mmol/L (3.5-5.1)
--- NOTE | 2022-07-01 08:15 | NUR ---
SIGN HANGER NOTE SEEN BY DR. AYALA AND DR. CHRISTENSEN. PATIENT STILL WITH SOME BLEEDING ON THE ABDOMEN, HAPPENED WHEN THE PATIENT WENT TO THE BATHROOM. DR. AYALA STAPLED THE BLEEDING SITE AND BLEEDING STOPPED, BETADINE SWAB APPLIED AND COVERED WITH DRY DRESSING. PROCEDURE TOLERATED WELL. IN STABLE CONDITION.
[2022-07-01] MEDS: BLOOD SUGAR DIAGNOSTIC 1 EACH STRIP IN SCH ×4 (08:18→21:13)
--- NOTE | 2022-07-01 09:06 | NUR ---
ELECTRONIC TYPESETTING MACHINE OPERATOR NOTE PATIENT BROUGHT DOWN TO RADIOLOGY DEPARTMENT FOR CT SCAN ORDERED. IN STABLE CONDITION.
[2022-07-01] MEDS: TAMSULOSIN 0.4 MG CAP.SR.24H PO SCH (09:15)
[2022-07-01] MEDS: DULOXETINE HCL 30 MG CAPSULE.DR PO SCH ×2 (09:15→17:37)
[2022-07-01] MEDS: PANTOPRAZOLE 40 MG TABLET.DR PO SCH (09:15)
[2022-07-01] MEDS: DILTIAZEM HCL CD 240 MG PO SCH (09:15)
[2022-07-01] MEDS: VIT B CMPLX 3/FA/VIT C/BIOTIN 1 TAB TABLET PO SCH (09:15)
[2022-07-01] MEDS: SEVELAMER CARBONATE 800 MG TABLET PO SCH ×3 (09:15→17:37)
--- NOTE | 2022-07-01 13:22 | NUR ---
MS RN NOTE CALLED CT SCAN TO INFORM THEM THE RESULT FOR THE CT IS GONE. THAT THEY MUST HAVE CANCELLED THE ORDER ASSOCIATED WITH THE RESULT BECAUSE 2 MD MADE THE SAME ORDER (DUPLICATE). THEY SAID THEY WILL LOOK INTO IT.
--- NOTE | 2022-07-01 14:00 | NUR ---
MS RN NOTE PATIENT FOR HD ORDERED. IN STABLE CONDITION.
[2022-07-01 16:00] VITALS: BP 130/84
--- NOTE | 2022-07-01 16:56 | NUR ---
MS RN NOTE COMPLETED HEMODIALYSIS, TOLERATED WELL. TOOK OUT 2 LITERS TOTAL. IN STABLE CONDITION.
[2022-07-01] MEDS: ATORVASTATIN 40 MG TABLET PO SCH (17:37)
[2022-07-01] MEDS: VANCOMYCIN 500 MG in IV D5W 100 ML IV PRN (18:21)
--- NOTE | 2022-07-01 18:55 | NUR ---
C D STILL OPERATOR CLOSING NOTE PATIENT IN BED ASLEEP BUT EASY TO WAKE UP. PATIENT IS ALERT AND ORIENTED X 4, ABLE TO MAKE NEEDS KNOWN. WITH OXYGEN AT 4LPM VIA NASAL CANNULA 3LPM, TOLERATING WELL AND NO RESPIRATORY DISTRESS NOTED. WITH IV ACCESS IN RFA G20 SALINE LOCK, INTACT AND PATENT; WITH AV SHUNT AT NOAH, PRESENCE OF BRUIT AND THRILL NOTED; WITH SURGICAL WOUND, ABDOMINAL DRESSING, DRY AND INTACT. SAFETY PRECAUTIONS IMPLEMENTED, BED IN LOW POSITION, LOCKED, SIDE RAILS UP X 2, CALL LIGHT WITHIN REACH. WILL ENDORSE TO NEXT SHIFT FOR CONTINUITY OF CARE.
[2022-07-01 20:00] VITALS: BP 144/83
[2022-07-01] MEDS: GABAPENTIN 300 MG CAPSULE PO SCH (21:24)
[2022-07-01] MEDS: METOPROLOL SUCCINATE 50 MG TAB.SR.24H PO SCH (21:24)
[2022-07-02] MEDS: PIPERACILLIN /TAZOBACTAM 2.25 G in IV D5W 50 ML IV SCH ×3 (05:10→21:42)
--- NOTE | 2022-07-02 06:11 | NUR ---
END OF SHIFT REPORT Patient in bed, Alert Oriented x3. Oxygen sat high 90's in 3L NC, observed no shortness of breath with exertion. NOAH AV shunt intact. RFA IV peripheral line intact, on IV abx. Afebrile. Abdomen incision dressing C/D/I no bleeding. Denies pain, no respiratory distress. CT chest pending result. Patient slept most of the night. Will endorse to oncoming RN.
[2022-07-02 06:18] LABS: CALCIUM, SERUM 8.3 mg/dL (8.5-10.1); CREATININE 5.4 mg/dL (0.6-1.3); POTASSIUM 4.5 mmol/L (3.5-5.1)
[2022-07-02] MEDS: BLOOD SUGAR DIAGNOSTIC 1 EACH STRIP IN SCH ×4 (06:27→21:49)
[2022-07-02] MEDS: SEVELAMER CARBONATE 800 MG TABLET PO SCH ×3 (07:47→18:19)
[2022-07-02] MEDS: PANTOPRAZOLE 40 MG TABLET.DR PO SCH (07:47)
[2022-07-02 08:00] VITALS: BP 128/79
--- NOTE | 2022-07-02 08:00 | NUR ---
PROCESS CONTROL ENGINEER OPENING NOTE RECEIVED PATIENT IN BED ASLEEP BUT EASY TO WAKE UP. PATIENT IS ALERT AND ORIENTED X 4, ABLE TO MAKE NEEDS KNOWN. WITH OXYGEN AT 4LPM VIA NASAL CANNULA 4LPM, TOLERATING WELL AND NO RESPIRATORY DISTRESS NOTED. WITH IV ACCESS IN RFA G20 SALINE LOCK, INTACT AND PATENT; WITH AV SHUNT AT NOAH, PRESENCE OF BRUIT AND THRILL NOTED; WITH SURGICAL WOUND, ABDOMINAL DRESSING, DRY AND INTACT. SAFETY PRECAUTIONS IMPLEMENTED, BED IN LOW POSITION, LOCKED, SIDE RAILS UP X 2, CALL LIGHT WITHIN REACH. WILL CONTINUE WITH PLAN OF CARE.
[2022-07-02] MEDS ORDERED: METO50TA7 PO (08:46)
[2022-07-02] MEDS ORDERED: DILT240C88 PO (08:46)
[2022-07-02] MEDS ORDERED: AMOX-430 PO ×2 (08:46→13:45)
[2022-07-02] MEDS: DULOXETINE HCL 30 MG CAPSULE.DR PO SCH ×2 (08:53→16:41)
[2022-07-02] MEDS: DILTIAZEM HCL CD 240 MG PO SCH (08:53)
[2022-07-02] MEDS: TAMSULOSIN 0.4 MG CAP.SR.24H PO SCH (08:55)
[2022-07-02] MEDS: VIT B CMPLX 3/FA/VIT C/BIOTIN 1 TAB TABLET PO SCH (08:57)
--- NOTE | 2022-07-02 09:00 | NUR ---
HVAC INSTALLATION TECHNICIAN NOTES FOLLOW UP WITH PATIENT RESULT OF CT SCAN
[2022-07-02 16:00] VITALS: BP 146/85
[2022-07-02] MEDS: ATORVASTATIN 40 MG TABLET PO SCH (18:19)
--- NOTE | 2022-07-02 18:43 | NUR ---
DEMOGRAPHIC ANALYST CLOSING NOTES PATIENT IN BED ASLEEP BUT EASY TO WAKE UP. PATIENT IS ALERT AND ORIENTED X 4, ABLE TO MAKE NEEDS KNOWN. WITH OXYGEN AT 4LPM VIA NASAL CANNULA 4LPM, TOLERATING WELL AND NO RESPIRATORY DISTRESS NOTED. WITH IV ACCESS IN RFA G20 SALINE LOCK, INTACT AND PATENT; WITH AV SHUNT AT NOAH, PRESENCE OF BRUIT AND THRILL NOTED; WITH SURGICAL WOUND, ABDOMINAL DRESSING, DRY AND INTACT. SAFETY PRECAUTIONS IMPLEMENTED, BED IN LOW POSITION, LOCKED, SIDE RAILS UP X 2, CALL LIGHT WITHIN REACH. WILL INDORSE TO NEXT SHIFT FOR CONTINUITY OF CARE.
--- NOTE | 2022-07-02 19:39 | NUR ---
RN OPENING NOTES RECEIVED PT IN BED, AWAKE, WATCHING TV. AOx4, ABLE TO MAKE NEEDS KNOWN. ON NC 4LPM AND TOLERATING WELL. NO SOB NOTED. NO S/SX OF RESPIRATORY DISTRESS NOTED. IV ACCESS IN RFA #20 G AND NOAH AV SHUNT. IV IS INTACT, PATENT, AND FLUSHING WELL. SAFETY PRECAUTIONS IN PLACE: BED IN LOWEST, LOCKED POSITION, SIDERAILS UPx2, AND BRAKES ON. TABLE AND CALL LIGHT WITHIN REACH. ALL NEEDS MET AT THIS TIME.
[2022-07-02 20:17] VITALS: BP 148/76
[2022-07-02] MEDS: GABAPENTIN 300 MG CAPSULE PO SCH (21:42)
[2022-07-02] MEDS: METOPROLOL SUCCINATE 50 MG TAB.SR.24H PO SCH (21:42)
[2022-07-03] VITALS: BP 120/70
[2022-07-03] MEDS: PIPERACILLIN /TAZOBACTAM 2.25 G in IV D5W 50 ML IV SCH ×2 (05:29→13:02)
[2022-07-03] MEDS: BLOOD SUGAR DIAGNOSTIC 1 EACH STRIP IN SCH ×2 (06:39→11:40)
--- NOTE | 2022-07-03 06:49 | NUR ---
RN CLOSING NOTES PT IN BED, ASLEEP, AWAKENS TO VERBAL STIMULI. AOx3-4, ABLE TO MAKE NEEDS KNOWN. ON NC 4LPM AND TOLERATING WELL. NO SOB NOTED. NO S/SX OF RESPIRATORY DISTRESS NOTED. IV ACCESS IN RFA #20 G AND NOAH AV SHUNT. IV IS INTACT, PATENT, AND FLUSHING WELL. ALL ORDERS CARRIED OUT. ALL NEEDS MET. PT KEPT CLEAN AND DRY. SAFETY PRECAUTIONS IN PLACE: BED IN LOWEST, LOCKED POSITION, SIDERAILS UPx2, AND BRAKES ON. TABLE AND CALL LIGHT WITHIN REACH. WILL ENDORSE TO ONCOMING SHIFT FOR ERICKA.
--- NOTE | 2022-07-03 07:20 | NUR ---
RN OPENING NOTE RECEIVED PATIENT IN BED, AWAKE, A/O X4, VERBALLY RESPONSIVE AND ABLE TO MAKE NEEDS KNOWN. NO SIGNS OF ACUTE DISTRESS NOTED. ON O2 INHALATION @2LPM VIA N/C, NO SOB NOTED, BREATHING EVEN AND UNLABORED. DENIES ANY PAIN OR DISCOMFORT AT THIS TIME. NOTED WITH IV ACCESS ON RIGHT FOREARM #20G, INTACT AND PATENT, FLUSHES WELL. WITH LEFT UPPER ARM AV SHUNT, NO BLEEDING NOTED. SAFETY MEASURE IN PLACE, BED IN LOW AND LOCKED POSITION. SIDE RAILS UP X2, CALL LIGHT PLACED WITHIN EASY REACH. WILL CONTINUE TO MONITOR PATIENT.
[2022-07-03 08:00] VITALS: BP 162/87
[2022-07-03] MEDS: PANTOPRAZOLE 40 MG TABLET.DR PO SCH (08:21)
[2022-07-03] MEDS: SEVELAMER CARBONATE 800 MG TABLET PO SCH ×2 (08:21→12:09)
[2022-07-03] MEDS: TAMSULOSIN 0.4 MG CAP.SR.24H PO SCH (08:21)
[2022-07-03] MEDS: DULOXETINE HCL 30 MG CAPSULE.DR PO SCH (08:21)
[2022-07-03] MEDS: VIT B CMPLX 3/FA/VIT C/BIOTIN 1 TAB TABLET PO SCH (08:21)
[2022-07-03] MEDS: DILTIAZEM HCL CD 240 MG PO SCH (08:21)
[2022-07-03] MEDS ORDERED: DILTIAZEM HCL CD 120 MG PO SCH (09:00)
[2022-07-03 09:30] LABS: CALCIUM, SERUM 8.7 mg/dL (8.5-10.1); POTASSIUM 4.7 mmol/L (3.5-5.1)
--- NOTE | 2022-07-03 10:00 | NUR ---
RN NOTE PATIENT NOTED WITH LEFT UPPER ARM SKIN TEAR. PER PATIENT HE RIPPED HIS LEFT UPPER ARM HD SITE DRESSING AND THE SKIN CAME OFF WITH IT. TREATMENT PROTOCOL PROVIDED. WILL REFER TO WOUND CARE FOR CONSULT.
--- NOTE | 2022-07-03 10:30 | NUR ---
RN NOTE PATIENT'S HEMODIALYSIS STARTED BY HD NURSE. IN STABLE CONDITION.
--- NOTE | 2022-07-03 13:35 | NUR ---
RN NOTE HD DONE, 2LITERS OF FLUIDS REMOVED. PATIENT TOLERATED PROCEDURE WELL. VITAL SIGNS STABLE.
[2022-07-03] MEDS: VANCOMYCIN 500 MG in IV D5W 100 ML IV PRN (13:40)
[2022-07-03 16:00] VITALS: BP 142/82
--- NOTE | 2022-07-03 16:45 | NUR ---
EXCEPTIONAL CHILDREN TEACHER ASSISTANT NOTE PATIENT DISCHARGED TO [facility] IN STABLE CONDITION. PATIENT REMAINS AWAKE, A/O X3-4, VERBALLY RESPONSIVE AND ABLE TO MAKE NEEDS KNOWN. VITAL SIGNS TAKEN, STABLE AND RECORDED. IV ACCESS ON RIGHT FORE ARM REMOVED, NO BLEEDING NOTED. PRESSURE DRESSING APPLIED TO SITE. ALL BELONGINGS ACCOUNTED FOR. FORM SIGNED BY PATIENT. PHOTOS OF SKIN ISSUES TAKEN, PLACED IN CHART. HANDOFF REPORT GIVEN TO [facility]. PATIENT'S DAUGHTER REX AWARE OF DISCHARGE. PATIENT PICKED UP BY [facility] @1640.
[2022-07-04] MEDS ORDERED: DILTIAZEM HCL CD 120 MG PO SCH (09:00)
== END 2022-07-03 16:56 | DRG 987 ==
LOC: ER 14:29 → TELE 21:34 → MED 06-27 10:49 → TELE 06-29 03:17 → MED 06-30 11:20 → TELE 07-01 01:00 → MED 07-01 10:15
PROVIDERS: ADMIT Internal Medicine; ATTEND Internal Medicine
PROC: 5A1D70Z Performance of Urinary Filtration, Intermittent, Less than 6 Hours Per Day (ICD-10-PCS; principal; 2022-06-27)
PROC: 0JQ80ZZ Repair Abdomen Subcutaneous Tissue and Fascia, Open Approach (ICD-10-PCS; 2022-06-28)
PROC: 0W993ZZ Drainage of Right Pleural Cavity, Percutaneous Approach (ICD-10-PCS; 2022-06-30)
DX: J69.0 Pneumonitis due to inhalation of food and vomit (principal); I50.23 Acute on chronic systolic (congestive) heart failure; N18.6 End stage renal disease; I13.2 Hypertensive heart and chronic kidney disease with heart failure and with stage 5 chronic kidney disease, or end stage renal disease; I48.20 Chronic atrial fibrillation, unspecified; L76.32 Postprocedural hematoma of skin and subcutaneous tissue following other procedure; I42.9 Cardiomyopathy, unspecified; J98.11 Atelectasis; J90 Pleural effusion, not elsewhere classified; L76.22 Postprocedural hemorrhage of skin and subcutaneous tissue following other procedure; Z99.2 Dependence on renal dialysis; Z20.822 Contact with and (suspected) exposure to COVID-19; E11.22 Type 2 diabetes mellitus with diabetic chronic kidney disease; Y83.8 Other surgical procedures as the cause of abnormal reaction of the patient, or of later complication, without mention of misadventure at the time of the procedure; Y92.009 Unspecified place in unspecified non-institutional (private) residence as the place of occurrence of the external cause; Z79.01 Long term (current) use of anticoagulants; Z79.899 Other long term (current) drug therapy; Z79.84 Long term (current) use of oral hypoglycemic drugs; E11.649 Type 2 diabetes mellitus with hypoglycemia without coma; Z90.49 Acquired absence of other specified parts of digestive tract; Z87.01 Personal history of pneumonia (recurrent); Z95.3 Presence of xenogenic heart valve; E78.5 Hyperlipidemia, unspecified; F17.200 Nicotine dependence, unspecified, uncomplicated; D69.6 Thrombocytopenia, unspecified; D64.9 Anemia, unspecified; I27.21 Secondary pulmonary arterial hypertension; M89.8X9 Other specified disorders of bone, unspecified site; N40.0 Benign prostatic hyperplasia without lower urinary tract symptoms
CPT/HCPCS: 36415; 71045-TC; 71250-TC; 80048-TC; 80076-TC; 80202-TC; 82945-TC; 82962-TC; 83880; 84484-TC; 85025-TC; 85027-TC; 85610-TC; 86706; 87081-TC; 87340; 89051-TC; 90935-TC; 94799-TC; A6253; A6403; C9803; G0378; J2543; J3370; J7030; J7040; J7050; J7060

== ENCOUNTER 2022-10-13 07:40 | Inpatient (IN) | payer OTHER ==
[~2022-10-13] VITALS: Ht 167.6 cm; Wt 76.2 kg
[~2022-10-13 07:40] MED LIST changes: +AMOX-430 PO; -APIX2.5T PO; +DILT240C88 PO; -DILT360C28 PO; -GLIP5TAB13 PO; -METO50TA16 PO; +METO50TA7 PO
--- NOTE | 2022-10-13 08:00 | NUR ---
pt came in by himself cc low hemoglobin noted prior to dialysis. he is ambulatory, cooperative AOX4. PT WAS PUT ON MONITOR AND PULSE.
--- NOTE | 2022-10-13 08:03 | NUR ---
iv inserted, heatherd collected and sent to lab
--- NOTE | 2022-10-13 08:03 | NUR ---
PT O2 SAT IS 87% THUS PUT IN NASAL CANNULA O2, AT 3L/MIN.
--- NOTE | 2022-10-13 08:06 | NUR ---
S/P CHOLESYSTECTOMY A YR AGO. A DIABETIC PT. VEGETABLE II FARMWORKER AT BEDSIDE. COVID SWAB DONE AND SENT TO LAB
--- NOTE | 2022-10-13 08:06 | NUR ---
MOVE SHEET SUBMITTED.
[2022-10-13 08:23] LABS: BASOPHILS # (AUTO) 0.1 K/uL (0.0-0.2); BASOPHILS % (AUTO) 0.9 % (0.0-2.0); EOSINOPHILS % (AUTO) 3.6 % (0.0-6.0); HEMATOCRIT 21 % (39-51); LYMPHOCYTES # (AUTO) 0.9 K/uL (0.8-4.8); LYMPHOCYTES % (AUTO) 6.9 % (20.0-44.0); MEAN CORPUSCULAR HGB CONC 31 g/dl (31.0-36.0); MEAN CORPUSCULAR VOLUME 100 fL (80-96); MONOCYTES # (AUTO) 0.9 K/uL (0.1-1.30); MONOCYTES % (AUTO) 6.6 % (2.0-12.0); NEUTROPHILS # (AUTO) 10.7 K/uL (1.8-8.9); PLATELET COUNT (AUTO) 231 K/uL (150-450); RED BLOOD CELL COUNT(AUTO) 2.05 MIL/uL (4.5-6.0); WHITE BLOOD COUNT (AUTO) 13.1 K/uL (4.3-11.0)
[2022-10-13 08:31] LABS: HEMOGLOBIN 6.5 g/dL (13.5-17.5)
--- NOTE | 2022-10-13 08:31 | NUR ---
lab reported hemoglobin-6.5
[2022-10-13 08:42] LABS: CARBON DIOXIDE 28 mmol/L (21-32); CHLORIDE 100 mmol/L (98-107); CREATININE 6.7 mg/dL (0.6-1.3); GLUCOSE 157 mg/dL (74-106); POTASSIUM 5.5 mmol/L (3.5-5.1); SODIUM SERUM 138 mmol/L (136-145); UREA NITROGEN, BLOOD 57 mg/dL (7-18)
--- NOTE | 2022-10-13 08:52 | NUR ---
consent for blood transufsion obtained
[2022-10-13 08:55] LABS: ALANINE AMINOTRANSFERASE 33 U/L (12-78); ALBUMIN 2.8 g/dL (3.4-5.0); ALKALINE PHOSPHATASE 91 U/L (46-116); ASPARTATE AMINOTRANSFERASE 16 U/L (15-37); BILIRUBIN,DIRECT 0.1 mg/dL (0.0-0.2); BILIRUBIN,TOTAL 0.5 mg/dL (0.2-1.0); TOTAL PROTEIN, SERUM 7.9 g/dL (6.4-8.2)
[2022-10-13] MEDS ORDERED: SODIUM BICARBONATE SYR 50 MEQ/50 ML DISP.SYRIN IV ONE (09:00)
[2022-10-13] MEDS ORDERED: CALCIUM CHLORIDE 1,000 MG/10 ML DISP.SYRIN IV ONE (09:00)
[2022-10-13] MEDS ORDERED: ALBUTEROL FS 2.5 MG/3 ML VIAL.NEB NEB ONE (09:00)
[2022-10-13] MEDS ORDERED: SODIUM BICARBONATE SYR 50 MEQ/50 ML DISP.SYRIN ONE (09:06)
[2022-10-13] MEDS ORDERED: CALCIUM CHLORIDE 1,000 MG/10 ML DISP.SYRIN ONE (09:06)
--- NOTE | 2022-10-13 09:07 | NUR ---
xray at bedside
[2022-10-13] MEDS ORDERED: ALBUTEROL FS 2.5 MG/3 ML VIAL.NEB ONE (09:25)
--- NOTE | 2022-10-13 09:25 | NUR ---
YOLETTE TRIVEDI [phone]
--- NOTE | 2022-10-13 10:41 | NUR ---
ROOM ASSIGNED. 313.1 ADMITTING AWARE.
[2022-10-13] MEDS ORDERED: METO25TA20 PO (10:54)
[2022-10-13] MEDS ORDERED: SACU1TAB PO (10:54)
[2022-10-13] MEDS ORDERED: ALBU2.5V38 NEB (10:54)
[2022-10-13] MEDS ORDERED: FLUT1BLS6 INH (10:54)
[2022-10-13] MEDS ORDERED: APIX5TAB PO (10:54)
[2022-10-13] MEDS ORDERED: TRAM50TA2 PO (10:54)
[2022-10-13] MEDS ORDERED: GLIP5TAB13 PO (10:54)
[2022-10-13] MEDS ORDERED: CELE-85 PO (10:54)
--- NOTE | 2022-10-13 11:08 | NUR ---
WANTS TO RECHECK LABS AFTER 1ST UNIT OF BLOOD GIVEN IN ORDER TO POSSIBLY PLACE ORDER FOR 2ND UNIT OF BLOOD
--- NOTE | 2022-10-13 11:21 | NUR ---
PATIENT WANTS TO BE DNR. INFORMED DR. CHRISTENSEN. AWAITING ORDERS
--- NOTE | 2022-10-13 11:25 | NUR ---
REPORT GIVEN TO [facility] FOR CONTINUATION OF CARE
[2022-10-13] MEDS ORDERED: ALBUTEROL FS 2.5 MG/3 ML VIAL.NEB NEB PRN (11:30)
[2022-10-13] MEDS ORDERED: TRAMADOL HCL 50 MG TABLET PO PRN (11:30)
--- NOTE | 2022-10-13 12:05 | NUR ---
MS INCINERATOR ATTENDANT NOTES Admitted patient via gurney from ER at 1155 accompanied by ER staff with admitting diagnosis of Anemia. A/O x 4, able to make needs known. No c/o pain/discomfort at this time. On O2 via NC at 3lpm, no acute respiratory distress noted. IV access in the RAC #20G, sl. Admission care done. No skin issues noted. Hooked to tele monitor with current reading of SR-56. Patient oriented to room and staff. Safety measures implemented: bed locked and in lowest position, side rails up x 2, call light and tray table within easy reach. Will continue to monitor.
[2022-10-13] MEDS ORDERED: SEVELAMER CARBONATE 800 MG TABLET PO SCH (13:00)
[2022-10-13 13:50] VITALS: BP 107/68
[2022-10-13 15:43] VITALS: BP 100/68
--- NOTE | 2022-10-13 15:45 | NUR ---
RN NOTE Patient had dialysis today together with BT. Blood was transfused by dialysis nurse. V/S checked. No blood transfusion reaction noted. Will continue to monitor.
[2022-10-13 15:51] VITALS: BP 107/68
[2022-10-13] MEDS ORDERED: METOPROLOL TARTRATE 25 MG TABLET PO SCH (17:00)
[2022-10-13] MEDS ORDERED: SACUBITRIL/VALSARTAN 1 EACH TABLET PO SCH (17:00)
[2022-10-13 17:10] LABS: EOSINOPHILS % (MANUAL) 4 % (0-4); LYMPHOCYTES % (MANUAL) 10 % (16-48); MONOCYTES % (MANUAL) 6 % (0-11.0); NEUTROPHILS % (MANUAL) 80 (42-76)
--- NOTE | 2022-10-13 17:30 | NUR ---
RN NOTE Patient s/p 1 unit bt of prbc and hd today, tolerated well. HD output 2000ml.
[2022-10-13 17:40] VITALS: BP 112/63
--- NOTE | 2022-10-13 17:45 | NUR ---
RN NOTE Patient verbalized he want to go home. Patient insists to go home against medical advice despite explaining the risks and consequences.
[2022-10-13] MEDS ORDERED: ATORVASTATIN 40 MG TABLET PO SCH (18:00)
--- NOTE | 2022-10-13 18:01 | NUR ---
RN NOTE Patient signed AMA form. ID name band and IV access removed. Tele monitor removed. Patient left the unit at 1757 via wheelchair accompanied by TOÑO Colby.
[2022-10-13] MEDS ORDERED: GABAPENTIN 300 MG CAPSULE PO SCH (22:00)
[2022-10-14] MEDS ORDERED: PANTOPRAZOLE 40 MG TABLET.DR PO SCH (07:30)
[2022-10-14] MEDS ORDERED: DILTIAZEM HCL CD 240 MG PO SCH ×2 (09:00)
[2022-10-14] MEDS ORDERED: VIT B CMPLX 3/FA/VIT C/BIOTIN 1 TAB TABLET PO SCH (09:00)
[2022-10-14] MEDS ORDERED: glipiZIDE 5 MG TABLET PO SCH (09:00)
[2022-10-14] MEDS ORDERED: FLUTICASONE/VILANTEROL 1 EACH BLST.W.DEV IH SCH (09:00)
[2022-10-14] MEDS ORDERED: TAMSULOSIN 0.4 MG CAP.SR.24H PO SCH (09:00)
== END 2022-10-13 17:57 | disposition left against medical advice (07) | DRG 291 ==
LOC: ER 07:50 → TELE 11:05
PROVIDERS: ADMIT Internal Medicine; ATTEND Internal Medicine
PROC: 5A1D70Z Performance of Urinary Filtration, Intermittent, Less than 6 Hours Per Day (ICD-10-PCS; principal; 2022-10-13)
PROC: 30233N1 Transfusion of Nonautologous Red Blood Cells into Peripheral Vein, Percutaneous Approach (ICD-10-PCS; 2022-10-13)
DX: I13.2 Hypertensive heart and chronic kidney disease with heart failure and with stage 5 chronic kidney disease, or end stage renal disease (principal); I50.23 Acute on chronic systolic (congestive) heart failure; N18.6 End stage renal disease; J96.21 Acute and chronic respiratory failure with hypoxia; J90 Pleural effusion, not elsewhere classified; I48.20 Chronic atrial fibrillation, unspecified; Z90.49 Acquired absence of other specified parts of digestive tract; E11.22 Type 2 diabetes mellitus with diabetic chronic kidney disease; D64.9 Anemia, unspecified; Z99.2 Dependence on renal dialysis; Z95.3 Presence of xenogenic heart valve; E78.5 Hyperlipidemia, unspecified; F17.200 Nicotine dependence, unspecified, uncomplicated; Z79.899 Other long term (current) drug therapy
CPT/HCPCS: 36415; 71045-TC; 76604-TC; 80048-TC; 80076-TC; 83880; 84484-TC; 85025-TC; 85730-TC; 86850-TC; 87081-TC; 90935-TC; C9803; G0378; J3490; J7030; P9016

== ENCOUNTER 2022-10-17 20:38 | Inpatient (IN) | payer OTHER ==
[~2022-10-17] VITALS: Ht 167.6 cm; Wt 70.8 kg
[~2022-10-17 20:38] MED LIST changes: +ALBU2.5V38 NEB; -AMOX-430 PO; +APIX5TAB PO; +CELE-85 PO; -DULO30CA52 PO; +FLUT1BLS6 INH; +GLIP5TAB13 PO; +METO25TA20 PO; -METO50TA7 PO; +SACU1TAB PO; +TRAM50TA2 PO
[2022-10-17] MEDS ORDERED: ATROPINE SULFATE 1 MG/10 ML DISP.SYRIN ONE (20:51)
[2022-10-17] MEDS ORDERED: CALCIUM CHLORIDE 1,000 MG/10 ML DISP.SYRIN ONE (20:58)
[2022-10-17] MEDS ORDERED: SODIUM BICARBONATE SYR 50 MEQ/50 ML DISP.SYRIN ONE (20:58)
[2022-10-17] MEDS ORDERED: Calcium Gluconate 0.465 MEQ/ML VIAL IV ONE (21:00)
[2022-10-17] MEDS ORDERED: SODIUM BICARBONATE SYR 50 MEQ/50 ML DISP.SYRIN IV ONE (21:00)
[2022-10-17] MEDS ORDERED: ATROPINE SULFATE 1 MG/10 ML DISP.SYRIN IV ONE (21:00)
[2022-10-17 21:15] LABS: BASOPHILS # (AUTO) 0.1 K/uL (0.0-0.2); BASOPHILS % (AUTO) 0.7 % (0.0-2.0); HEMATOCRIT 22 % (39-51); LYMPHOCYTES % (AUTO) 7.2 % (20.0-44.0); MEAN CORPUSCULAR HGB CONC 31 g/dl (31.0-36.0); MEAN CORPUSCULAR VOLUME 103 fL (80-96); NEUTROPHILS # (AUTO) 11.7 K/uL (1.8-8.9); NEUTROPHILS % (AUTO) 83.1 % (43.0-81.0); PLATELET COUNT (AUTO) 187 K/uL (150-450); RED BLOOD CELL COUNT(AUTO) 2.13 MIL/uL (4.5-6.0)
[2022-10-17 21:27] LABS: HEMOGLOBIN 6.7 g/dL (13.5-17.5)
[2022-10-17 21:29] LABS: CALCIUM, SERUM 9.2 mg/dL (8.5-10.1); CARBON DIOXIDE 17 mmol/L (21-32); CHLORIDE 96 mmol/L (98-107); GLUCOSE 187 mg/dL (74-106); POTASSIUM 6.1 mmol/L (3.5-5.1); SODIUM SERUM 133 mmol/L (136-145); UREA NITROGEN, BLOOD 74 mg/dL (7-18)
[2022-10-17] MEDS ORDERED: EPINEPHRINE (1:1000) 1 MG/ML AMPUL ONE (21:34)
[2022-10-17 21:41] LABS: ALANINE AMINOTRANSFERASE 23 U/L (12-78); ALBUMIN 2.6 g/dL (3.4-5.0); ALKALINE PHOSPHATASE 113 U/L (46-116); ASPARTATE AMINOTRANSFERASE 12 U/L (15-37); BILIRUBIN,DIRECT 0.2 mg/dL (0.0-0.2); BILIRUBIN,TOTAL 0.6 mg/dL (0.2-1.0); TOTAL PROTEIN, SERUM 7.8 g/dL (6.4-8.2)
[2022-10-17 21:48] LABS: EOSINOPHILS % (MANUAL) 1 % (0-4); LYMPHOCYTES % (MANUAL) 10 % (16-48); MONOCYTES % (MANUAL) 6 % (0-11.0); NEUTROPHILS % (MANUAL) 83 (42-76)
[2022-10-17] MEDS: EPINEPHRINE (1:1000) 5 MG in IV NS 0.9% 245 ML IV PRN ×2 (22:06→22:28)
[2022-10-17] MEDS ORDERED: DEXTROSE 50%-WATER 50 ML DISP.SYRIN IV ONE (22:30)
[2022-10-17] MEDS ORDERED: ALBUTEROL FS 2.5 MG/3 ML VIAL.NEB NEB ONE (22:30)
[2022-10-17] MEDS ORDERED: INSULIN REGULAR, HUMAN 100 UNIT/ML 10 ML VIAL IV ONE (22:30)
[2022-10-17] MEDS ORDERED: SODIUM POLYSTYRENE SULFONATE 15 G/60 ML BOTTLE PO ONE ×2 (22:30→23:30)
[2022-10-17] MEDS ORDERED: CEFTRIAXONE 1GM BAG (ER ONLY) 50 ML IV ONE (23:00)
[2022-10-17] MEDS ORDERED: IV NS 0.9% 500 ML BAG IV ONE (23:00)
[2022-10-17] MEDS ORDERED: VANCOMYCIN 1 GM in IV D5W 250 ML IV ONE (23:00)
[2022-10-17] MEDS ORDERED: VANCOMYCIN 1 GM /D5W 250 ML PB IV ONE (23:03)
[2022-10-18] VITALS (22 sets, daily range): BP systolic 98–164; BP diastolic 50–97
[2022-10-18] MEDS ORDERED: ALBUTEROL FS 2.5 MG/3 ML VIAL.NEB NEB PRN (00:30)
[2022-10-18] MEDS ORDERED: TRAMADOL HCL 50 MG TABLET PO PRN (00:30)
[2022-10-18] MEDS ORDERED: NOREPINEPHRINE 8 MG in IV NS 0.9% 242 ML IV PRN (01:00)
[2022-10-18 05:25] LABS: CALCIUM, SERUM 9.2 mg/dL (8.5-10.1); CREATININE 5.6 mg/dL (0.6-1.3); POTASSIUM 4.1 mmol/L (3.5-5.1)
[2022-10-18] MEDS: glipiZIDE 5 MG TABLET PO SCH (08:17)
[2022-10-18] MEDS: VIT B CMPLX 3/FA/VIT C/BIOTIN 1 TAB TABLET PO SCH (08:18)
[2022-10-18] MEDS: PANTOPRAZOLE 40 MG TABLET.DR PO SCH (08:18)
[2022-10-18] MEDS: SEVELAMER CARBONATE 800 MG TABLET PO SCH ×3 (08:18→18:03)
[2022-10-18] MEDS: TAMSULOSIN 0.4 MG CAP.SR.24H PO SCH (08:18)
[2022-10-18 08:49] LABS: BASOPHILS # (AUTO) 0.1 K/uL (0.0-0.2); BASOPHILS % (AUTO) 0.4 % (0.0-2.0); EOSINOPHILS % (AUTO) 0.9 % (0.0-6.0); HEMATOCRIT 23 % (39-51); HEMOGLOBIN 7.4 g/dL (13.5-17.5); LYMPHOCYTES # (AUTO) 0.8 K/uL (0.8-4.8); LYMPHOCYTES % (AUTO) 6.4 % (20.0-44.0); MEAN CORPUSCULAR HGB CONC 32 g/dl (31.0-36.0); MEAN CORPUSCULAR VOLUME 98 fL (80-96); MONOCYTES # (AUTO) 0.9 K/uL (0.1-1.30); MONOCYTES % (AUTO) 6.9 % (2.0-12.0); NEUTROPHILS % (AUTO) 85.4 % (43.0-81.0); PLATELET COUNT (AUTO) 152 K/uL (150-450); RED BLOOD CELL COUNT(AUTO) 2.39 MIL/uL (4.5-6.0); WHITE BLOOD COUNT (AUTO) 12.9 K/uL (4.3-11.0)
[2022-10-18] MEDS ORDERED: CELECOXIB 200 MG PO SCH (09:00)
[2022-10-18] MEDS ORDERED: APIXABAN 5 MG TABLET PO SCH (09:00)
[2022-10-18 11:52] LABS: PHOSPHORUS 3.8 mg/dL (2.5-4.9)
[2022-10-18] MEDS: APIXABAN 2.5 MG TABLET PO SCH (18:03)
[2022-10-18] MEDS: ATORVASTATIN 40 MG TABLET PO SCH (18:03)
[2022-10-19] VITALS (12 sets, daily range): BP systolic 138–250; BP diastolic 97–127
[2022-10-19] MEDS: METOPROLOL SUCCINATE 50 MG TAB.SR.24H PO SCH (06:20)
[2022-10-19 06:53] LABS: BASOPHILS # (AUTO) 0.1 K/uL (0.0-0.2); BASOPHILS % (AUTO) 0.4 % (0.0-2.0); EOSINOPHILS % (AUTO) 1.3 % (0.0-6.0); HEMATOCRIT 28 % (39-51); HEMOGLOBIN 8.9 g/dL (13.5-17.5); LYMPHOCYTES # (AUTO) 1.1 K/uL (0.8-4.8); LYMPHOCYTES % (AUTO) 7.8 % (20.0-44.0); MEAN CORPUSCULAR HGB CONC 32 g/dl (31.0-36.0); MEAN CORPUSCULAR VOLUME 97 fL (80-96); MONOCYTES # (AUTO) 1.3 K/uL (0.1-1.30); MONOCYTES % (AUTO) 9.5 % (2.0-12.0); NEUTROPHILS # (AUTO) 10.8 K/uL (1.8-8.9); PLATELET COUNT (AUTO) 151 K/uL (150-450); RED BLOOD CELL COUNT(AUTO) 2.89 MIL/uL (4.5-6.0); WHITE BLOOD COUNT (AUTO) 13.4 K/uL (4.3-11.0)
[2022-10-19 07:32] LABS: CALCIUM, SERUM 9.3 mg/dL (8.5-10.1); POTASSIUM 4.2 mmol/L (3.5-5.1)
[2022-10-19 07:33] LABS: THYROID STIMULATING HORMONE 5.349 uIU/mL (0.358-3.74)
[2022-10-19] MEDS ORDERED: ZOLPIDEM TARTRATE 5 MG TABLET PO PRN (08:30)
[2022-10-19] MEDS: glipiZIDE 5 MG TABLET PO SCH (09:00)
[2022-10-19] MEDS: SEVELAMER CARBONATE 800 MG TABLET PO SCH ×3 (09:03→17:16)
[2022-10-19] MEDS: TAMSULOSIN 0.4 MG CAP.SR.24H PO SCH (09:04)
[2022-10-19] MEDS: PANTOPRAZOLE 40 MG TABLET.DR PO SCH (09:04)
[2022-10-19] MEDS: VIT B CMPLX 3/FA/VIT C/BIOTIN 1 TAB TABLET PO SCH (09:04)
[2022-10-19] MEDS: APIXABAN 2.5 MG TABLET PO SCH (09:06)
[2022-10-19] MEDS: hydrALAZINE HCL 10 MG TABLET PO PRN ×3 (09:25→15:42)
[2022-10-19] MEDS: EPOETIN ALFA-EPBX 4,000 UNIT/ML VIAL IV SCH ×2 (12:25→12:27)
[2022-10-19] MEDS ORDERED: AMLODIPINE BESYLATE 10 MG TABLET PO SCH (13:00)
[2022-10-19 16:19] LABS: ABG BASE EXCESS -2.3 mmol/L; ABG PH 7.302 (7.350-7.450); ABG PO2 85.6 mmHg (75.0-100.0); COHb 1.6 % (0.5-1.5); O2Hb 94.1 % (94.0-97.0); SITE, ABG Right Radial; VENT MODE, BG 5 LPM NC
[2022-10-19] MEDS ORDERED: HEPARIN SODIUM, PORCINE 5000 UNITS/1 ML VIAL IV ONE (17:00)
[2022-10-19] MEDS: HEPARIN INFUSION/D5W 500 ML IV PRN (17:20)
[2022-10-19] MEDS: ATORVASTATIN 40 MG TABLET PO SCH (17:33)
[2022-10-19] MEDS: CLONIDINE HCL 0.1 MG TABLET PO PRN (19:00)
[2022-10-19] MEDS ORDERED: QUETIAPINE FUMARATE 25 MG TABLET PO SCH (23:30)
[2022-10-19] MEDS ORDERED: HALOPERIDOL LACTATE INJ 5 MG/ML VIAL IM ONE (23:30)
[2022-10-20] VITALS (26 sets, daily range): BP systolic 115–193; BP diastolic 72–127
[2022-10-20 04:43] LABS: BASOPHILS % (AUTO) 0.2 % (0.0-2.0); HEMATOCRIT 23 % (39-51); HEMOGLOBIN 7.4 g/dL (13.5-17.5); LYMPHOCYTES # (AUTO) 0.5 K/uL (0.8-4.8); LYMPHOCYTES % (AUTO) 5.1 % (20.0-44.0); MEAN CORPUSCULAR HGB CONC 33 g/dl (31.0-36.0); MEAN CORPUSCULAR VOLUME 98 fL (80-96); MONOCYTES # (AUTO) 0.6 K/uL (0.1-1.30); MONOCYTES % (AUTO) 5.6 % (2.0-12.0); NEUTROPHILS # (AUTO) 9.2 K/uL (1.8-8.9); NEUTROPHILS % (AUTO) 89.1 % (43.0-81.0); PLATELET COUNT (AUTO) 115 K/uL (150-450); RED BLOOD CELL COUNT(AUTO) 2.33 MIL/uL (4.5-6.0); WHITE BLOOD COUNT (AUTO) 10.3 K/uL (4.3-11.0)
[2022-10-20 05:18] LABS: CALCIUM, SERUM 9.3 mg/dL (8.5-10.1); CREATININE 6.2 mg/dL (0.6-1.3); POTASSIUM 4.2 mmol/L (3.5-5.1)
[2022-10-20] MEDS: METOPROLOL SUCCINATE 50 MG TAB.SR.24H PO SCH (06:00)
[2022-10-20] MEDS: PANTOPRAZOLE 40 MG TABLET.DR PO SCH (07:30)
[2022-10-20] MEDS: SEVELAMER CARBONATE 800 MG TABLET PO SCH ×3 (08:00→17:04)
[2022-10-20] MEDS: CLONIDINE HCL 0.1 MG TABLET PO PRN (08:11)
[2022-10-20 08:56] LABS: ABG PCO2 43.7 mmHg (35.0-45.0); ABG PH 7.365 (7.350-7.450); ABG PO2 96.2 mmHg (75.0-100.0); AaDO2 283.5 mmHg; COHb 1.2 % (0.5-1.5); MetHb 0.3 % (0.0-1.5); O2Hb 95.5 % (94.0-97.0); SITE, ABG Right Radial; VENT MODE, BG 8L SIMPLE MASK
[2022-10-20] MEDS: TAMSULOSIN 0.4 MG CAP.SR.24H PO SCH (09:00)
[2022-10-20] MEDS: VIT B CMPLX 3/FA/VIT C/BIOTIN 1 TAB TABLET PO SCH (09:00)
[2022-10-20] MEDS: FLUTICASONE/VILANTEROL 1 EACH BLST.W.DEV IH SCH (09:00)
[2022-10-20] MEDS ORDERED: DILTIAZEM HCL CD 240 MG PO SCH (09:30)
[2022-10-20] MEDS: glipiZIDE 5 MG TABLET PO SCH (09:33)
[2022-10-20] MEDS: hydrALAZINE HCL 10 MG TABLET PO PRN (09:36)
[2022-10-20] MEDS: PIPERACILLIN /TAZOBACTAM 2.25 G in IV D5W 50 ML IV SCH ×3 (10:42→20:11)
[2022-10-20] MEDS ORDERED: NIFEdipine XL (30MG) 30 MG TAB PO SCH (11:00)
[2022-10-20] MEDS ORDERED: DILTIAZEM HCL 30 MG TABLET PO SCH (12:00)
[2022-10-20] MEDS: HEPARIN INFUSION/D5W 500 ML IV PRN (12:26)
[2022-10-20] MEDS: CLONIDINE HCL 0.2MG/24H PTWK 1 EA PATCH TD SCH (12:40)
[2022-10-20] MEDS: hydrALAZINE HCL IV 20 MG VIAL IV PRN ×2 (13:33→21:07)
[2022-10-20] MEDS: LABETALOL 20 MG/4 ML VIAL IV PRN (16:11)
[2022-10-20] MEDS: ATORVASTATIN 40 MG TABLET PO SCH (17:04)
[2022-10-20] MEDS: NIFEdipine XL (30MG) 30 MG TAB PO SCH (18:00)
[2022-10-21] VITALS (24 sets, daily range): BP systolic 121–181; BP diastolic 63–102
[2022-10-21 03:53] LABS: BASOPHILS % (AUTO) 0.1 % (0.0-2.0); EOSINOPHILS % (AUTO) 0.1 % (0.0-6.0); HEMATOCRIT 23 % (39-51); HEMOGLOBIN 7.4 g/dL (13.5-17.5); LYMPHOCYTES # (AUTO) 0.8 K/uL (0.8-4.8); LYMPHOCYTES % (AUTO) 7.5 % (20.0-44.0); MEAN CORPUSCULAR HGB CONC 33 g/dl (31.0-36.0); MEAN CORPUSCULAR VOLUME 98 fL (80-96); MONOCYTES # (AUTO) 0.8 K/uL (0.1-1.30); MONOCYTES % (AUTO) 7.7 % (2.0-12.0); NEUTROPHILS # (AUTO) 9.1 K/uL (1.8-8.9); NEUTROPHILS % (AUTO) 84.6 % (43.0-81.0); PLATELET COUNT (AUTO) 128 K/uL (150-450); RED BLOOD CELL COUNT(AUTO) 2.33 MIL/uL (4.5-6.0); WHITE BLOOD COUNT (AUTO) 10.7 K/uL (4.3-11.0)
[2022-10-21] MEDS: LABETALOL 20 MG/4 ML VIAL IV PRN ×2 (04:06→09:39)
[2022-10-21 04:11] LABS: CALCIUM, SERUM 9.2 mg/dL (8.5-10.1); POTASSIUM 4.6 mmol/L (3.5-5.1)
[2022-10-21 04:16] LABS: CREATININE 7.7 mg/dL (0.6-1.3)
[2022-10-21] MEDS: PIPERACILLIN /TAZOBACTAM 2.25 G in IV D5W 50 ML IV SCH ×3 (05:03→21:10)
[2022-10-21] MEDS: METOPROLOL SUCCINATE 50 MG TAB.SR.24H PO SCH (05:04)
[2022-10-21] MEDS: HEPARIN INFUSION/D5W 500 ML IV PRN (09:37)
[2022-10-21] MEDS: glipiZIDE 5 MG TABLET PO SCH (09:38)
[2022-10-21] MEDS: VIT B CMPLX 3/FA/VIT C/BIOTIN 1 TAB TABLET PO SCH (09:38)
[2022-10-21] MEDS: NIFEdipine XL (30MG) 30 MG TAB PO SCH ×2 (09:38→17:07)
[2022-10-21] MEDS: SEVELAMER CARBONATE 800 MG TABLET PO SCH ×3 (10:10→17:07)
[2022-10-21] MEDS: PANTOPRAZOLE 40 MG TABLET.DR PO SCH (10:10)
[2022-10-21] MEDS: FLUTICASONE/VILANTEROL 1 EACH BLST.W.DEV IH SCH (10:11)
[2022-10-21] MEDS: TAMSULOSIN 0.4 MG CAP.SR.24H PO SCH (12:42)
[2022-10-21] MEDS: hydrALAZINE HCL IV 20 MG VIAL IV PRN (12:43)
[2022-10-21] MEDS: IV NS 0.9% 250 ML IV PRN (13:00)
[2022-10-21] MEDS: EPOETIN ALFA-EPBX 4,000 UNIT/ML VIAL IV SCH (14:25)
[2022-10-21] MEDS: ATORVASTATIN 40 MG TABLET PO SCH (17:07)
[2022-10-22] VITALS (24 sets, daily range): BP systolic 111–157; BP diastolic 60–93
[2022-10-22] MEDS: HEPARIN INFUSION/D5W 500 ML IV PRN ×2 (01:25→22:50)
[2022-10-22] MEDS: PIPERACILLIN /TAZOBACTAM 2.25 G in IV D5W 50 ML IV SCH ×3 (04:50→20:48)
[2022-10-22 05:09] LABS: BASOPHILS % (AUTO) 0.2 % (0.0-2.0); EOSINOPHILS % (AUTO) 1.5 % (0.0-6.0); HEMATOCRIT 23 % (39-51); HEMOGLOBIN 7.4 g/dL (13.5-17.5); LYMPHOCYTES # (AUTO) 1.2 K/uL (0.8-4.8); LYMPHOCYTES % (AUTO) 10.9 % (20.0-44.0); MEAN CORPUSCULAR HGB CONC 33 g/dl (31.0-36.0); MEAN CORPUSCULAR VOLUME 97 fL (80-96); MONOCYTES # (AUTO) 0.9 K/uL (0.1-1.30); MONOCYTES % (AUTO) 8.7 % (2.0-12.0); NEUTROPHILS # (AUTO) 8.5 K/uL (1.8-8.9); NEUTROPHILS % (AUTO) 78.7 % (43.0-81.0); PLATELET COUNT (AUTO) 134 K/uL (150-450); RED BLOOD CELL COUNT(AUTO) 2.35 MIL/uL (4.5-6.0); WHITE BLOOD COUNT (AUTO) 10.8 K/uL (4.3-11.0)
[2022-10-22 05:24] LABS: CALCIUM, SERUM 9.1 mg/dL (8.5-10.1); CREATININE 6.6 mg/dL (0.6-1.3)
[2022-10-22] MEDS: METOPROLOL SUCCINATE 50 MG TAB.SR.24H PO SCH (06:00)
[2022-10-22] MEDS: PANTOPRAZOLE 40 MG TABLET.DR PO SCH ×2 (06:10→08:11)
[2022-10-22] MEDS: SEVELAMER CARBONATE 800 MG TABLET PO SCH ×3 (08:00→17:09)
[2022-10-22] MEDS: NIFEdipine XL (30MG) 30 MG TAB PO SCH ×2 (08:11→16:26)
[2022-10-22] MEDS: TAMSULOSIN 0.4 MG CAP.SR.24H PO SCH (08:12)
[2022-10-22] MEDS: VIT B CMPLX 3/FA/VIT C/BIOTIN 1 TAB TABLET PO SCH (08:12)
[2022-10-22] MEDS: glipiZIDE 5 MG TABLET PO SCH (08:12)
[2022-10-22] MEDS: FLUTICASONE/VILANTEROL 1 EACH BLST.W.DEV IH SCH (08:13)
[2022-10-22] MEDS ORDERED: NEPRO VAN 237 ML CAN PO PRN (10:00)
[2022-10-22] MEDS: ATORVASTATIN 40 MG TABLET PO SCH (17:09)
[2022-10-22] MEDS: ZOLPIDEM TARTRATE 5 MG TABLET PO PRN (22:25)
[2022-10-23] VITALS (27 sets, daily range): BP systolic 116–150; BP diastolic 55–102
[2022-10-23] MEDS: PIPERACILLIN /TAZOBACTAM 2.25 G in IV D5W 50 ML IV SCH ×3 (04:51→20:16)
[2022-10-23] MEDS: METOPROLOL SUCCINATE 50 MG TAB.SR.24H PO SCH (06:24)
[2022-10-23 07:13] LABS: BASOPHILS % (AUTO) 0.4 % (0.0-2.0); EOSINOPHILS % (AUTO) 0.3 % (0.0-6.0); HEMATOCRIT 22 % (39-51); LYMPHOCYTES # (AUTO) 0.5 K/uL (0.8-4.8); LYMPHOCYTES % (AUTO) 5.4 % (20.0-44.0); MEAN CORPUSCULAR HGB CONC 32 g/dl (31.0-36.0); MEAN CORPUSCULAR VOLUME 96 fL (80-96); MONOCYTES # (AUTO) 0.5 K/uL (0.1-1.30); MONOCYTES % (AUTO) 5.5 % (2.0-12.0); NEUTROPHILS # (AUTO) 8.1 K/uL (1.8-8.9); NEUTROPHILS % (AUTO) 88.4 % (43.0-81.0); PLATELET COUNT (AUTO) 130 K/uL (150-450); RED BLOOD CELL COUNT(AUTO) 2.24 MIL/uL (4.5-6.0); WHITE BLOOD COUNT (AUTO) 9.2 K/uL (4.3-11.0)
[2022-10-23 07:36] LABS: CALCIUM, SERUM 9.2 mg/dL (8.5-10.1); CREATININE 5.9 mg/dL (0.6-1.3); POTASSIUM 4.1 mmol/L (3.5-5.1)
[2022-10-23] MEDS: SEVELAMER CARBONATE 800 MG TABLET PO SCH ×3 (09:41→18:52)
[2022-10-23] MEDS: glipiZIDE 5 MG TABLET PO SCH (09:41)
[2022-10-23] MEDS: NIFEdipine XL (30MG) 30 MG TAB PO SCH ×2 (09:41→18:51)
[2022-10-23] MEDS: VIT B CMPLX 3/FA/VIT C/BIOTIN 1 TAB TABLET PO SCH (09:41)
[2022-10-23] MEDS: TAMSULOSIN 0.4 MG CAP.SR.24H PO SCH (09:41)
[2022-10-23] MEDS: FLUTICASONE/VILANTEROL 1 EACH BLST.W.DEV IH SCH (09:42)
[2022-10-23] MEDS ORDERED: ALBUTEROL FS 2.5 MG/3 ML VIAL.NEB NEB PRN (13:00)
[2022-10-23] MEDS: HEPARIN INFUSION/D5W 500 ML IV PRN (13:19)
[2022-10-23] MEDS ORDERED: IPRATROPIUM NEB FS 0.5 MG/2.5 ML AMPUL.NEB NEB PRN (13:30)
[2022-10-23] MEDS: EPOETIN ALFA-EPBX 4,000 UNIT/ML VIAL IV SCH (15:33)
[2022-10-23] MEDS: ATORVASTATIN 40 MG TABLET PO SCH (18:52)
[2022-10-23] MEDS: ZOLPIDEM TARTRATE 5 MG TABLET PO PRN (23:56)
[2022-10-24] VITALS (24 sets, daily range): BP systolic 110–164; BP diastolic 54–110
[2022-10-24] MEDS: HEPARIN INFUSION/D5W 500 ML IV PRN ×2 (02:52→20:30)
[2022-10-24] MEDS: PIPERACILLIN /TAZOBACTAM 2.25 G in IV D5W 50 ML IV SCH ×3 (04:02→21:28)
[2022-10-24 04:26] LABS: BASOPHILS % (AUTO) 0.3 % (0.0-2.0); EOSINOPHILS % (AUTO) 1.4 % (0.0-6.0); HEMATOCRIT 25 % (39-51); HEMOGLOBIN 8.2 g/dL (13.5-17.5); LYMPHOCYTES # (AUTO) 0.7 K/uL (0.8-4.8); LYMPHOCYTES % (AUTO) 6.1 % (20.0-44.0); MEAN CORPUSCULAR HGB CONC 32 g/dl (31.0-36.0); MEAN CORPUSCULAR VOLUME 95 fL (80-96); MONOCYTES # (AUTO) 0.7 K/uL (0.1-1.30); MONOCYTES % (AUTO) 6.1 % (2.0-12.0); NEUTROPHILS # (AUTO) 9.5 K/uL (1.8-8.9); NEUTROPHILS % (AUTO) 86.1 % (43.0-81.0); PLATELET COUNT (AUTO) 167 K/uL (150-450); RED BLOOD CELL COUNT(AUTO) 2.66 MIL/uL (4.5-6.0)
[2022-10-24 04:45] LABS: CALCIUM, SERUM 9.6 mg/dL (8.5-10.1)
[2022-10-24] MEDS: METOPROLOL SUCCINATE 50 MG TAB.SR.24H PO SCH (05:19)
[2022-10-24] MEDS ORDERED: HEPARIN SODIUM, PORCINE 5000 UNITS/1 ML VIAL IV ONE (07:00)
[2022-10-24] MEDS: VIT B CMPLX 3/FA/VIT C/BIOTIN 1 TAB TABLET PO SCH (08:42)
[2022-10-24] MEDS: glipiZIDE 5 MG TABLET PO SCH (08:42)
[2022-10-24] MEDS: SEVELAMER CARBONATE 800 MG TABLET PO SCH ×3 (08:42→17:22)
[2022-10-24] MEDS: NIFEdipine XL (30MG) 30 MG TAB PO SCH (08:42)
[2022-10-24] MEDS: TAMSULOSIN 0.4 MG CAP.SR.24H PO SCH (08:42)
[2022-10-24] MEDS: PANTOPRAZOLE 40 MG TABLET.DR PO SCH (08:42)
[2022-10-24] MEDS: FLUTICASONE/VILANTEROL 1 EACH BLST.W.DEV IH SCH (08:48)
[2022-10-24] MEDS: DILTIAZEM HCL CD 240 MG PO SCH (14:18)
[2022-10-24] MEDS: hydrALAZINE HCL 25 MG TABLET PO SCH ×2 (14:19→21:39)
[2022-10-24] MEDS: ATORVASTATIN 40 MG TABLET PO SCH (17:22)
[2022-10-25] VITALS (24 sets, daily range): BP systolic 114–172; BP diastolic 67–110
[2022-10-25] MEDS: PIPERACILLIN /TAZOBACTAM 2.25 G in IV D5W 50 ML IV SCH ×3 (05:12→20:47)
[2022-10-25] MEDS: METOPROLOL SUCCINATE 50 MG TAB.SR.24H PO SCH (05:12)
[2022-10-25] MEDS: hydrALAZINE HCL 25 MG TABLET PO SCH ×3 (05:12→20:48)
[2022-10-25 05:37] LABS: BASOPHILS % (AUTO) 0.1 % (0.0-2.0); EOSINOPHILS % (AUTO) 0.3 % (0.0-6.0); HEMATOCRIT 25 % (39-51); HEMOGLOBIN 7.8 g/dL (13.5-17.5); LYMPHOCYTES # (AUTO) 0.5 K/uL (0.8-4.8); LYMPHOCYTES % (AUTO) 3.7 % (20.0-44.0); MEAN CORPUSCULAR HGB CONC 32 g/dl (31.0-36.0); MEAN CORPUSCULAR VOLUME 98 fL (80-96); MONOCYTES # (AUTO) 0.5 K/uL (0.1-1.30); MONOCYTES % (AUTO) 4.1 % (2.0-12.0); NEUTROPHILS # (AUTO) 12.1 K/uL (1.8-8.9); NEUTROPHILS % (AUTO) 91.8 % (43.0-81.0); PLATELET COUNT (AUTO) 163 K/uL (150-450); RED BLOOD CELL COUNT(AUTO) 2.51 MIL/uL (4.5-6.0); WHITE BLOOD COUNT (AUTO) 13.2 K/uL (4.3-11.0)
[2022-10-25 05:49] LABS: CALCIUM, SERUM 9.8 mg/dL (8.5-10.1); CREATININE 4.7 mg/dL (0.6-1.3); POTASSIUM 4.5 mmol/L (3.5-5.1)
[2022-10-25] MEDS: PANTOPRAZOLE 40 MG TABLET.DR PO SCH (07:21)
[2022-10-25] MEDS: SEVELAMER CARBONATE 800 MG TABLET PO SCH ×3 (07:21→17:32)
[2022-10-25] MEDS: DILTIAZEM HCL CD 240 MG PO SCH (08:02)
[2022-10-25] MEDS: glipiZIDE 5 MG TABLET PO SCH (08:02)
[2022-10-25] MEDS: TAMSULOSIN 0.4 MG CAP.SR.24H PO SCH (08:02)
[2022-10-25] MEDS: VIT B CMPLX 3/FA/VIT C/BIOTIN 1 TAB TABLET PO SCH (08:02)
[2022-10-25] MEDS: FLUTICASONE/VILANTEROL 1 EACH BLST.W.DEV IH SCH (08:03)
[2022-10-25] MEDS: IV NS 0.9% 250 ML IV PRN (09:24)
[2022-10-25] MEDS: HEPARIN INFUSION/D5W 500 ML IV PRN ×2 (10:35→22:33)
[2022-10-25] MEDS: ATORVASTATIN 40 MG TABLET PO SCH (17:32)
[2022-10-25] MEDS: ZOLPIDEM TARTRATE 5 MG TABLET PO PRN (23:07)
[2022-10-26] VITALS (24 sets, daily range): BP systolic 96–170; BP diastolic 32–108
[2022-10-26 04:07] LABS: BASOPHILS % (AUTO) 0.1 % (0.0-2.0); EOSINOPHILS % (AUTO) 0.1 % (0.0-6.0); HEMATOCRIT 24 % (39-51); HEMOGLOBIN 7.8 g/dL (13.5-17.5); LYMPHOCYTES # (AUTO) 0.6 K/uL (0.8-4.8); LYMPHOCYTES % (AUTO) 4.9 % (20.0-44.0); MEAN CORPUSCULAR HGB CONC 33 g/dl (31.0-36.0); MEAN CORPUSCULAR VOLUME 96 fL (80-96); MONOCYTES # (AUTO) 0.5 K/uL (0.1-1.30); MONOCYTES % (AUTO) 4.2 % (2.0-12.0); NEUTROPHILS # (AUTO) 11.7 K/uL (1.8-8.9); NEUTROPHILS % (AUTO) 90.7 % (43.0-81.0); PLATELET COUNT (AUTO) 178 K/uL (150-450); WHITE BLOOD COUNT (AUTO) 12.9 K/uL (4.3-11.0)
[2022-10-26 04:43] LABS: CALCIUM, SERUM 9.3 mg/dL (8.5-10.1); CREATININE 4.7 mg/dL (0.6-1.3)
[2022-10-26] MEDS: PIPERACILLIN /TAZOBACTAM 2.25 G in IV D5W 50 ML IV SCH ×3 (05:07→21:35)
[2022-10-26] MEDS: hydrALAZINE HCL 25 MG TABLET PO SCH ×3 (05:08→21:35)
[2022-10-26] MEDS: METOPROLOL SUCCINATE 50 MG TAB.SR.24H PO SCH (06:05)
[2022-10-26] MEDS: PANTOPRAZOLE 40 MG TABLET.DR PO SCH (08:46)
[2022-10-26] MEDS: TAMSULOSIN 0.4 MG CAP.SR.24H PO SCH (08:46)
[2022-10-26] MEDS: VIT B CMPLX 3/FA/VIT C/BIOTIN 1 TAB TABLET PO SCH (08:46)
[2022-10-26] MEDS: SEVELAMER CARBONATE 800 MG TABLET PO SCH ×3 (08:46→17:30)
[2022-10-26] MEDS: glipiZIDE 5 MG TABLET PO SCH ×3 (08:55→09:00)
[2022-10-26] MEDS: DILTIAZEM HCL CD 240 MG PO SCH (08:55)
[2022-10-26] MEDS: FLUTICASONE/VILANTEROL 1 EACH BLST.W.DEV IH SCH (08:55)
[2022-10-26] MEDS ORDERED: MIDAZOLAM HCL 2 MG/2ML VIAL IV PRN (10:00)
[2022-10-26] MEDS ORDERED: FENTANYL PF 250MCG/5ML AMPUL IV PRN (10:00)
[2022-10-26] MEDS ORDERED: FLUMAZENIL 0.5 MG VIAL IV PRN (10:00)
[2022-10-26] MEDS ORDERED: NALOXONE PREFILLED SYRINGE 2 MG/2 ML SYRINGE IV PRN (10:00)
[2022-10-26] MEDS: EPOETIN ALFA-EPBX 4,000 UNIT/ML VIAL IV SCH (15:54)
[2022-10-26] MEDS: ATORVASTATIN 40 MG TABLET PO SCH (17:30)
[2022-10-26] MEDS: HEPARIN INFUSION/D5W 500 ML IV PRN (23:58)
[2022-10-27] VITALS (16 sets, daily range): BP systolic 132–169; BP diastolic 71–113
[2022-10-27] MEDS: PIPERACILLIN /TAZOBACTAM 2.25 G in IV D5W 50 ML IV SCH ×3 (04:57→20:20)
[2022-10-27] MEDS: hydrALAZINE HCL 25 MG TABLET PO SCH ×3 (05:37→21:00)
[2022-10-27] MEDS: METOPROLOL SUCCINATE 50 MG TAB.SR.24H PO SCH (06:06)
[2022-10-27 06:24] LABS: BASOPHILS % (AUTO) 0.1 % (0.0-2.0); EOSINOPHILS % (AUTO) 0.1 % (0.0-6.0); HEMATOCRIT 26 % (39-51); HEMOGLOBIN 8.1 g/dL (13.5-17.5); LYMPHOCYTES # (AUTO) 0.7 K/uL (0.8-4.8); LYMPHOCYTES % (AUTO) 5.5 % (20.0-44.0); MEAN CORPUSCULAR HGB CONC 32 g/dl (31.0-36.0); MEAN CORPUSCULAR VOLUME 97 fL (80-96); MONOCYTES # (AUTO) 0.6 K/uL (0.1-1.30); MONOCYTES % (AUTO) 4.8 % (2.0-12.0); NEUTROPHILS # (AUTO) 11.7 K/uL (1.8-8.9); NEUTROPHILS % (AUTO) 89.5 % (43.0-81.0); PLATELET COUNT (AUTO) 203 K/uL (150-450); RED BLOOD CELL COUNT(AUTO) 2.64 MIL/uL (4.5-6.0); WHITE BLOOD COUNT (AUTO) 13.1 K/uL (4.3-11.0)
[2022-10-27 06:41] LABS: CALCIUM, SERUM 9.5 mg/dL (8.5-10.1); CREATININE 4.7 mg/dL (0.6-1.3); POTASSIUM 4.4 mmol/L (3.5-5.1)
[2022-10-27 07:40] LABS: ABG BASE EXCESS -3.5 mmol/L; ABG PCO2 37.6 mmHg (35.0-45.0); ABG PH 7.372 (7.350-7.450); ABG PO2 63.2 mmHg (75.0-100.0); COHb 0.3 % (0.5-1.5); MetHb 0.1 % (0.0-1.5); O2Hb 88.2 % (94.0-97.0); SITE, ABG Left Femoral; VENT MODE, BG 40% FIO2 VENTIMASK
[2022-10-27] MEDS: SEVELAMER CARBONATE 800 MG TABLET PO SCH ×3 (08:44→16:26)
[2022-10-27] MEDS: TAMSULOSIN 0.4 MG CAP.SR.24H PO SCH (08:44)
[2022-10-27] MEDS: VIT B CMPLX 3/FA/VIT C/BIOTIN 1 TAB TABLET PO SCH (08:45)
[2022-10-27] MEDS: PANTOPRAZOLE 40 MG TABLET.DR PO SCH (08:45)
[2022-10-27] MEDS: DILTIAZEM HCL CD 240 MG PO SCH (08:46)
[2022-10-27] MEDS: glipiZIDE 5 MG TABLET PO SCH (08:46)
[2022-10-27] MEDS ORDERED: LABETALOL 20 MG/4 ML VIAL IV PRN (09:00)
[2022-10-27] MEDS: FLUTICASONE/VILANTEROL 1 EACH BLST.W.DEV IH SCH (10:49)
[2022-10-27] MEDS: CLONIDINE HCL 0.2MG/24H PTWK 1 EA PATCH TD SCH (12:00)
[2022-10-27] MEDS: HEPARIN INFUSION/D5W 500 ML IV PRN (12:47)
[2022-10-27] MEDS: ATORVASTATIN 40 MG TABLET PO SCH (16:25)
[2022-10-27] MEDS ORDERED: OLANZAPINE 10 MG VIAL IM PRN (16:30)
[2022-10-27] MEDS ORDERED: LORAZEPAM INJ 2 MG/ML VIAL IV PRN (19:30)
[2022-10-27] MEDS ORDERED: HYDROMORPHONE INJ 2 MG/ML DISP.SYRIN IV PRN (22:00)
[2022-10-28 04:00] VITALS: BP 138/66
[2022-10-28] MEDS: IV NS 0.9% 250 ML IV PRN (04:46)
[2022-10-28] MEDS ORDERED: HYDROMORPHONE MDV 30 MG in IV NS 0.9% 15 ML, PCA TOTAL VOLUME 1 BAG IV SCH ×3 (08:00)
[2022-10-28] MEDS ORDERED: LORAZEPAM INJ 2 MG/ML VIAL IV PRN (09:30)
[2022-10-28] MEDS ORDERED: KEY,NONCONTROL,TO KEEP IN PYXI 1 EA MC ONE (11:17)
[2022-10-28 12:00] VITALS: BP 117/48
== END 2022-10-28 13:20 | DRG 291 ==
LOC: ER 20:40 → ICU 23:48 → TELE1 10-18 10:15 → ICU 10-19 18:45 → TELE1 10-26 18:20 → TELE-TD 10-26 18:59 → ICU 10-27 08:57 → HOSPICE1 10-28 00:52 → MEDSG1 10-28 11:31
PROVIDERS: ADMIT Internal Medicine; ATTEND Internal Medicine
PROC: 5A1D70Z Performance of Urinary Filtration, Intermittent, Less than 6 Hours Per Day (ICD-10-PCS; principal; 2022-10-17)
PROC: 30233N1 Transfusion of Nonautologous Red Blood Cells into Peripheral Vein, Percutaneous Approach (ICD-10-PCS; 2022-10-17)
PROC: 5A09457 Assistance with Respiratory Ventilation, 24-96 Consecutive Hours, Continuous Positive Airway Pressure (ICD-10-PCS; 2022-10-19)
PROC: 05HY33Z Insertion of Infusion Device into Upper Vein, Percutaneous Approach (ICD-10-PCS; 2022-10-20)
PROC: 0W993ZX Drainage of Right Pleural Cavity, Percutaneous Approach, Diagnostic (ICD-10-PCS; 2022-10-22)
PROC: 05HB33Z Insertion of Infusion Device into Right Basilic Vein, Percutaneous Approach (ICD-10-PCS; 2022-10-24)
PROC: 0B9N30Z Drainage of Right Pleura with Drainage Device, Percutaneous Approach (ICD-10-PCS; 2022-10-26)
DX: I13.2 Hypertensive heart and chronic kidney disease with heart failure and with stage 5 chronic kidney disease, or end stage renal disease (principal); I50.23 Acute on chronic systolic (congestive) heart failure; N18.6 End stage renal disease; J15.9 Unspecified bacterial pneumonia; J96.21 Acute and chronic respiratory failure with hypoxia; I48.20 Chronic atrial fibrillation, unspecified; J90 Pleural effusion, not elsewhere classified; E87.5 Hyperkalemia; I95.9 Hypotension, unspecified; R00.1 Bradycardia, unspecified; D63.8 Anemia in other chronic diseases classified elsewhere; Z20.822 Contact with and (suspected) exposure to COVID-19; E11.22 Type 2 diabetes mellitus with diabetic chronic kidney disease; Z99.2 Dependence on renal dialysis; Z51.5 Encounter for palliative care; Z66 Do not resuscitate; E78.5 Hyperlipidemia, unspecified; Z90.49 Acquired absence of other specified parts of digestive tract; Z95.3 Presence of xenogenic heart valve; Z79.01 Long term (current) use of anticoagulants; Z79.51 Long term (current) use of inhaled steroids; Z79.84 Long term (current) use of oral hypoglycemic drugs; Z79.899 Other long term (current) drug therapy; M89.8X9 Other specified disorders of bone, unspecified site; F17.200 Nicotine dependence, unspecified, uncomplicated; Z87.19 Personal history of other diseases of the digestive system
CPT/HCPCS: 36415; 36600; 70450-TC; 71045-TC; 71250-TC; 75989; 75989-TC; 80048-TC; 80076-TC; 82803-TC; 82962-TC; 83540-TC; 83605-TC; 83880; 83970; 84100-TC; 84443-TC; 84484-TC; 85025-TC; 85610-TC; 85730-TC; 86850-TC; 87040-TC; 87081-TC; 87102-TC; 88108-TC; 88305-TC; 89051-TC; 90935-TC; 93307-TC; 93880-TC; 94799-TC; 99082-TC; A4223; A6403; C9803; G0378; J0171; J0360; J0461; J0696; J0885; J1170; J1630; J1644; J1815; J2060; J2250; J2543; J3010; J3370; J3490; J7030; J7040; J7050; J7060; P9016